=== PATIENT | female | born 1955 | race Two or more races ===

== ENCOUNTER 2018-12-03 16:08 | Inpatient (IN) | payer MEDICARE, OTHER ==
[~2018-12-03] VITALS: Ht 165.1 cm; Wt 95.6 kg
[2018-12-03] MEDS ORDERED: SODIUM CHLORIDE 0.9% 1,000 ML IV ONE (17:31)
[2018-12-03 17:57] LABS: Basophils # (auto) 0.1 uL; Basophils % (auto) 1.4 % (0.0-2.0); Eosinophils # (auto) 0.2 uL; Eosinophils % (auto) 4.1 % (0.0-7.0); Hematocrit 34.5 % (36.0-46.0); Hemoglobin 11.2 g/dL (12.2-16.2); Lymphocytes # (auto) 1.2 uL; Lymphocytes % (auto) 21.7 % (10.0-50.0); Mean Corpuscular Hemoglobin 31.4 pg (28.0-32.0); Mean Corpuscular Hgb Conc. 32.4 g/dL (32.0-36.0); Mean Corpuscular Volume 96.9 fL (80.0-100.0); Monocytes # (auto) 0.3 uL; Monocytes % (auto) 5.2 % (0.0-12.0); Neutrophils # (auto) 3.6 uL; Neutrophils % (auto) 67.6 % (37.0-80.0); Nucleated Red Blood Cells % 0.2 %; Platelet Count (auto) 297 10^3/uL (140-450); Red Blood Cells 3.56 10^6/uL (4.0-5.20); Red Cell Distribution Width 17.9 % (11.8-14.3); White Blood Cell 5.3 10^3/uL (4.4-10.8)
[2018-12-03 18:09] LABS: Albumin 3.6 g/dL (3.4-5.0); BUN/Creatinine Ratio 3.2; Calcium 8.1 mg/dL (8.5-10.1); Magnesium 2.6 mg/dL (1.6-2.6); Potassium 4.1 mmol/L (3.5-5.1)
[2018-12-03 18:13] LABS: Bilirubin, Total 0.8 mg/dL (0.2-1.0); Total Protein 7.7 g/dL (6.4-8.2)
[2018-12-03 18:42] LABS: Partial Thromboplastin Time 29.6 sec (23.78-33.04); Prothrombin Time 10.7 sec (9.27-12.13)
[2018-12-03] MEDS ORDERED: ACETAMINOPHEN 325 MG TAB PO PRN (22:15)
[2018-12-03] MEDS ORDERED: ZOLPIDEM TARTRATE 5 MG TAB PO PRN (22:15)
[2018-12-03] MEDS ORDERED: NITROGLYCERIN 0.4 MG SL TAB SL PRN (22:15)
[2018-12-03] MEDS ORDERED: ALBUTEROL SULF 2.5 MG/0.5ML(0.5%) NEB SOLN NEB ONE (23:00)
[2018-12-03] MEDS ORDERED: IPRATROPIUM BROM 0.5 MG/2.5ML INH SOL NEB ONE (23:00)
[2018-12-03] MEDS ORDERED: ALBUTEROL SULF 2.5 MG/0.5ML(0.5%) NEB SOLN ONE (23:11)
[2018-12-03] MEDS ORDERED: IPRATROPIUM BROM 0.5 MG/2.5ML INH SOL ONE (23:12)
[2018-12-03] MEDS: LORazepam 0.5 MG TAB PO PRN (23:28)
[2018-12-04] VITALS (7 sets, daily range): BP systolic 129–184; BP diastolic 76–110
[2018-12-04] MEDS: MORPHINE SULF INJ 2 MG/ML SYRINGE 1ML IV PRN ×2 (00:26→19:50)
[2018-12-04] MEDS: hydrALAZINE HCL 25 MG TAB PO SCH ×3 (06:09→21:53)
--- NOTE | 2018-12-04 07:00 | NUR ---
OPENING SHIFT NOTE. ASSUMED CARE OF THE PATIENT FROM THE SWITCHBOARD TROUBLESHOOTER RN. THE PATIENT IS SLEEPING AT THIS TIME. PATIENT IS BREATHING AND HAS NO SIGNS OF CYANOSIS. PATIENT'S CALL LIGHT IS WITHIN REACH AND BED IS IN THE LOWEST, LOCKED POSITION. WILL COME BACK FOR ASSESSMENT. PATIENT HAD A DIFFICULT NIGHT, PER SWITCHBOARD TROUBLESHOOTER RN, DUE TO ANXIETY. WILL CONTINUE TO MONITOR.
[2018-12-04] MEDS: SEVELAMER 800 MG TAB PO SCH ×3 (08:22→18:20)
[2018-12-04 08:45] LABS: Basophils # (auto) 0 uL; Basophils % (auto) 0.7 % (0.0-2.0); Eosinophils # (auto) 0.2 uL; Eosinophils % (auto) 4.8 % (0.0-7.0); Hematocrit 30.4 % (36.0-46.0); Hemoglobin 10.1 g/dL (12.2-16.2); Lymphocytes # (auto) 1.1 uL; Mean Corpuscular Hemoglobin 32.1 pg (28.0-32.0); Mean Corpuscular Hgb Conc. 33.2 g/dL (32.0-36.0); Mean Corpuscular Volume 96.5 fL (80.0-100.0); Monocytes # (auto) 0.7 uL; Monocytes % (auto) 14.8 % (0.0-12.0); Neutrophils # (auto) 2.7 uL; Neutrophils % (auto) 55.7 % (37.0-80.0); Platelet Count (auto) 266 10^3/uL (140-450); Red Blood Cells 3.15 10^6/uL (4.0-5.20); Red Cell Distribution Width 18.1 % (11.8-14.3); White Blood Cell 4.8 10^3/uL (4.4-10.8)
[2018-12-04 09:06] LABS: BUN/Creatinine Ratio 3.2; Calcium 7.4 mg/dL (8.5-10.1); Potassium 4.5 mmol/L (3.5-5.1)
--- NOTE | 2018-12-04 09:16 | NUR ---
CRITICAL CREATININE PAUL FROM THE LAB REPORTED A CRITICAL VALUE OF 11.4. PATIENT DOES HAVE END STAGE RENAL DISEASE. WILL NOTIFY THE PHYSICIAN AND CONTINUE TO MONITOR.
[2018-12-04] MEDS: PANTOPRAZOLE 40 MG TAB PO SCH (10:34)
[2018-12-04] MEDS: CLOPIDOGREL BISULFATE 75 MG TAB PO SCH (10:34)
[2018-12-04] MEDS: CARVEDILOL 3.125 MG TAB PO SCH ×2 (10:34→21:54)
[2018-12-04] MEDS: LORazepam 0.5 MG TAB PO PRN ×3 (10:35→22:52)
--- NOTE | 2018-12-04 11:00 | NUR ---
BP REASSESSMENT SHOW ELEVATED BLOOD PRESSURE (189/117). WILL NOTIFY THE HOSPITALIST.
[2018-12-04] MEDS ORDERED: AZITHROMYCIN 250 MG TAB PO ONE (12:00)
[2018-12-04] MEDS: cefTRIAXone 1GM/50ML D5W 50 ML IV SCH (12:28)
[2018-12-04] MEDS ORDERED: SODIUM CHL 0.9% 1000 ML BAG XX ONE (15:15)
[2018-12-04] MEDS: ALBUTEROL SULF 2.5 MG/0.5ML(0.5%) NEB SOLN NEB PRN (18:46)
[2018-12-04] MEDS: IPRATROPIUM BROM 0.5 MG/2.5ML INH SOL NEB PRN (18:46)
--- NOTE | 2018-12-04 19:00 | NUR ---
Opening Shift Note Assumed care of patient, awake and alert. No S/S of distress/SOB. The patient c/o pain and request pain medication. Will medicate with PRN pain medication. Instructed on POC and to call for assist PRN, will continue to monitor for changes Q1hr and PRN.
[2018-12-04] MEDS: diphenhdrAMINE HCL 25 MG CAP PO PRN (19:47)
[2018-12-04] MEDS ORDERED: EPOETIN ALFA 4,000 UNIT/ML VL SC ONE (21:00)
--- NOTE | 2018-12-04 21:45 | NUR ---
RESPONDED TO PATIENT CALL LIGHT. UPON ENTERING THE ROOM, THE PATIENT WAS DOUBLED OVER IN A CHAIR STATING THAT SHE DID NOT FEEL WELL. THE PATIENT STATED THAT SHE WANTED TO WALK AROUND THE UNIT BUT FELT SICK WHEN SHE BEGAN TO WALK. SHE C/O SOB AND NAUSEA. THE PATIENT WAS ASSISTED TO HER BED AND THE NASAL CANNULA WAS PLACED BACK INTO THE PATIENT'S NOSTRILS. THE PATIENT STATED THAT SHE FELT BETTER AFTER RECEIVING THE OXYGEN. SHE ALSO REQUESTED ATIVAN FOR HER ANXIETY.
[2018-12-04] MEDS: traZODone HCL 50 MG TAB PO SCH (21:54)
[2018-12-04] MEDS: ONDANSETRON HCL 4 MG/2 ML VIAL IV PRN (21:54)
--- NOTE | 2018-12-04 23:30 | NUR ---
HOSPITALIST NOTIFIED ABOUT ELEVATED BLOOD PRESSURE. ORDERS OBTAINED FOR CLONIDINE 0.1 Q4HR FOR SYSTOLIC PRESSURE ABOVE 150.
[2018-12-05] MEDS: cloNIDine HCL 0.1 MG TAB PO PRN ×2 (02:06→16:55)
[2018-12-05 05:00] VITALS: BP 114/66
[2018-12-05 06:03] LABS: Basophils # (auto) 0 uL; Basophils % (auto) 0.6 % (0.0-2.0); Eosinophils # (auto) 0.2 uL; Eosinophils % (auto) 4.5 % (0.0-7.0); Hematocrit 29.7 % (36.0-46.0); Hemoglobin 9.8 g/dL (12.2-16.2); Lymphocytes # (auto) 0.9 uL; Lymphocytes % (auto) 20.4 % (10.0-50.0); Mean Corpuscular Hgb Conc. 33.1 g/dL (32.0-36.0); Mean Corpuscular Volume 96.9 fL (80.0-100.0); Monocytes # (auto) 0.6 uL; Monocytes % (auto) 13.2 % (0.0-12.0); Neutrophils # (auto) 2.7 uL; Neutrophils % (auto) 61.3 % (37.0-80.0); Platelet Count (auto) 232 10^3/uL (140-450); Red Blood Cells 3.06 10^6/uL (4.0-5.20); Red Cell Distribution Width 17.7 % (11.8-14.3); White Blood Cell 4.4 10^3/uL (4.4-10.8)
[2018-12-05 06:26] LABS: BUN/Creatinine Ratio 3.3; Calcium 7.7 mg/dL (8.5-10.1); Potassium 5.1 mmol/L (3.5-5.1)
[2018-12-05] MEDS: hydrALAZINE HCL 25 MG TAB PO SCH ×3 (06:37→22:26)
--- NOTE | 2018-12-05 06:43 | NUR ---
CRITICAL VALUE THE PATIENT HAS A CRITICAL CREATININE AT 12.90. THE PATIENT HAS ESRD. WILL ENDORSE TO DAY TIME RN.
--- NOTE | 2018-12-05 07:45 | NUR ---
OPENING NOTE OBSERVED PT SITTING UP IN BED, CONVERSING WITH NEIGHBOR. NO SOB/DISTRESS NOTED. PT UPDATED ON POC AND VERBALIZED UNDERSTANDING. ENCOURAGED PT TO CONTACT STAFF FOR PRN ASSISTANCE. CALL LIGHT WITHIN REACH. FALL PRECAUTIONS IN PLACE. WILL CONTINUE TO MONITOR Q1H AND PRN. CONTINUE PT CARE.
[2018-12-05 08:11] VITALS: BP 139/72
[2018-12-05] MEDS: cefTRIAXone 1GM/50ML D5W 50 ML IV SCH (08:47)
[2018-12-05] MEDS: SEVELAMER 800 MG TAB PO SCH ×3 (08:47→17:37)
[2018-12-05] MEDS: MORPHINE SULF INJ 2 MG/ML SYRINGE 1ML IV PRN ×3 (08:52→22:28)
[2018-12-05] MEDS: PANTOPRAZOLE 40 MG TAB PO SCH (09:37)
[2018-12-05] MEDS: AZITHROMYCIN 250 MG TAB PO SCH (09:37)
[2018-12-05] MEDS: CLOPIDOGREL BISULFATE 75 MG TAB PO SCH (09:37)
[2018-12-05] MEDS: CARVEDILOL 3.125 MG TAB PO SCH ×2 (09:37→22:27)
[2018-12-05] MEDS: ONDANSETRON HCL 4 MG/2 ML VIAL IV PRN ×2 (10:24→16:19)
[2018-12-05] MEDS: LORazepam 0.5 MG TAB PO PRN ×2 (10:24→23:03)
[2018-12-05] MEDS ORDERED: TICA90TA PO (10:33)
[2018-12-05] MEDS ORDERED: ASP81EC PO (10:33)
--- NOTE | 2018-12-05 11:35 | NUR ---
DIALYSIS TELETYPEWRITER INSTALLER AT BEDSIDE PROVIDED WITH NS BAG X 2 AND SALINE FLUSHES.
[2018-12-05 12:38] VITALS: BP 130/76
--- NOTE | 2018-12-05 13:37 | NUR ---
Respiratory note: PT ASSESSED FOR PRN MED NEB TX. POX 96% ON RA, HR 88, RR 18. B/S ARE CLEAR THROUGHOUT. MED NEB TX IS NOT INDICATED. PT IS AWARE TO PRESS THE CALL LIGHT IF SHE FEELS ANY SOB TO RECEIVE A MED NEB TX.
--- NOTE | 2018-12-05 15:09 | NUR ---
ORDERS SPOKE TO DR. CAMEJO REGARDING PT REQUESTING TO BE PLACED ON BRILINTA AND ASPIRIN. MD STATING OK TO RESUME HOME DOSE AND FREQUENCY OF MEDICATIONS.
--- NOTE | 2018-12-05 15:25 | NUR ---
SPUTUM SAMPLE SPOKE TO PT REGARDING PENDING SPUTUM SAMPLE. PT VERBALIZED UNDERSTANDING. LABELED SPECIMEN CUP LEFT AT BEDSIDE.
--- NOTE | 2018-12-05 16:12 | NUR ---
DIALYSIS COMPLETED DIALYSIS COMPLETED. 3L REMOVED.
[2018-12-05] MEDS: FLUCONAZOLE 100 MG TAB PO SCH (16:19)
[2018-12-05 16:37] VITALS: BP 168/91
--- NOTE | 2018-12-05 16:59 | NUR ---
ROUNDS MEDICATED ACCORDING TO MD ORDER WITH PRN CLONIDINE FOR ELEVATED BP. WILL MONITOR EFFECTIVENESS. FAMILY AT BEDSIDE.
[2018-12-05 17:37] VITALS: BP 144/71
--- NOTE | 2018-12-05 17:42 | NUR ---
BLOOD PRESSURE REASSESSED BP REASSESSED FOLLOWING PRN CLONIDINE ADMINISTRATION, CURRENTLY 144/71. PT DENIES ANY DISTRESS. FAMILY REMAINS AT BEDSIDE. RE-ENCOURAGED TO CONTACT STAFF FOR PRN ASSISTANCE. CALL LIGHT WITHIN REACH. FALL PRECAUTIONS IN PLACE.
[2018-12-05 20:10] VITALS: BP 116/68
[2018-12-05] MEDS: IPRATROPIUM BROM 0.5 MG/2.5ML INH SOL NEB PRN (21:08)
[2018-12-05] MEDS: ALBUTEROL SULF 2.5 MG/0.5ML(0.5%) NEB SOLN NEB PRN (21:08)
[2018-12-05] MEDS: TICAGRELOR 90 MG TAB PO SCH (22:26)
[2018-12-05] MEDS: traZODone HCL 50 MG TAB PO SCH (22:27)
[2018-12-06 04:57] VITALS: BP 125/80
[2018-12-06 06:13] LABS: Basophils # (auto) 0 uL; Basophils % (auto) 0.8 % (0.0-2.0); Eosinophils # (auto) 0.2 uL; Hematocrit 30.8 % (36.0-46.0); Hemoglobin 10.2 g/dL (12.2-16.2); Lymphocytes % (auto) 22.1 % (10.0-50.0); Mean Corpuscular Hgb Conc. 33.1 g/dL (32.0-36.0); Mean Corpuscular Volume 96.6 fL (80.0-100.0); Monocytes # (auto) 0.6 uL; Monocytes % (auto) 14.4 % (0.0-12.0); Neutrophils # (auto) 2.6 uL; Neutrophils % (auto) 57.7 % (37.0-80.0); Platelet Count (auto) 245 10^3/uL (140-450); Red Blood Cells 3.19 10^6/uL (4.0-5.20); White Blood Cell 4.5 10^3/uL (4.4-10.8)
[2018-12-06] MEDS: ALBUTEROL SULF 2.5 MG/0.5ML(0.5%) NEB SOLN NEB PRN ×2 (06:34→20:51)
[2018-12-06] MEDS: IPRATROPIUM BROM 0.5 MG/2.5ML INH SOL NEB PRN ×2 (06:34→20:51)
[2018-12-06 06:40] LABS: BUN/Creatinine Ratio 2.7; Calcium 7.8 mg/dL (8.5-10.1); Potassium 4.7 mmol/L (3.5-5.1)
[2018-12-06] MEDS: hydrALAZINE HCL 25 MG TAB PO SCH ×3 (06:56→21:40)
--- NOTE | 2018-12-06 07:45 | NUR ---
OPENING NOTE OBSERVED PT SITTING UP IN BED, NO ACUTE DISTRESS NOTED AT THIS TIME. PT UPDATED ON POC AND VERBALIZED UNDERSTANDING. NPO STATUS ENFORCED WITH PATIENT FOR PENDING STRESS TEST. CALL LIGHT WITHIN REACH. FALL PRECAUTIONS IN PLACE. WILL CONTINUE TO MONITOR Q1H AND PRN. CONTINUE PT CARE.
[2018-12-06 08:00] VITALS: BP 125/75
[2018-12-06] MEDS: SEVELAMER 800 MG TAB PO SCH ×3 (08:00→17:42)
--- NOTE | 2018-12-06 08:15 | NUR ---
IV insertion IV access obtained, via clean sterile technique by inserting 22 gauge catheter at RFA after 3 attempts. IV secured properly. No trauma to site. Patient tolerated well.
[2018-12-06] MEDS: AZITHROMYCIN 250 MG TAB PO SCH (09:19)
[2018-12-06] MEDS: ASPirin-EC 81 mg tab PO SCH (09:20)
[2018-12-06] MEDS: PANTOPRAZOLE 40 MG TAB PO SCH (09:20)
[2018-12-06] MEDS: TICAGRELOR 90 MG TAB PO SCH ×2 (09:20→21:39)
[2018-12-06] MEDS: FLUCONAZOLE 100 MG TAB PO SCH (09:20)
[2018-12-06] MEDS: CLOPIDOGREL BISULFATE 75 MG TAB PO SCH (09:20)
[2018-12-06] MEDS: cefTRIAXone 1GM/50ML D5W 50 ML IV SCH (09:20)
--- NOTE | 2018-12-06 09:20 | NUR ---
PLAVIX ADMINISTRATION PT REFUSING PLAVIX AT THIS TIME R/T RESUMPTION OF BRILINTA. WILL SPEAK TO ATTENDING REGARDING FURTHER ORDERS.
[2018-12-06] MEDS: CARVEDILOL 3.125 MG TAB PO SCH ×2 (09:21→21:39)
[2018-12-06] MEDS: ONDANSETRON HCL 4 MG/2 ML VIAL IV PRN ×3 (09:21→21:40)
[2018-12-06] MEDS: MORPHINE SULF INJ 2 MG/ML SYRINGE 1ML IV PRN ×4 (09:21→22:10)
[2018-12-06] MEDS ORDERED: ADENOSINE 83 MG in GIVE UN-DILUTED 0 ML IV STA (09:51)
[2018-12-06] MEDS: LORazepam 0.5 MG TAB PO PRN ×2 (10:41→17:42)
--- NOTE | 2018-12-06 10:55 | NUR ---
OFF UNIT PT TAKEN OFF UNIT VIA WC TO NM.
--- NOTE | 2018-12-06 11:10 | NUR ---
SPOKE TO MD SPOKE TO DR. GALLEGOS REGARDING PT REQUEST FOR STOOL SOFTENER AND REFUSAL OF PLAVIX. ORDERS RECEIVED TO DC PLAVIX. ADDITIONAL ORDERS RECEIVED FOR LACTULOSE 30 ML Q6H PRN.
[2018-12-06 11:43] VITALS: BP 145/88
[2018-12-06] MEDS: LACTULOSE 20Gm/30ML SOLN PO PRN (13:36)
--- NOTE | 2018-12-06 14:27 | NUR ---
CALL TO MD CALL OUT TO DR. GALLEGOS. PT REQUESTING MORE MEDICATION FOR ANXIETY. STATING 'THE OTHER STUFF ISN'T WORKING'. WAITING ON RESPONSE.
[2018-12-06] MEDS: cloNIDine HCL 0.1 MG TAB PO PRN (16:02)
--- NOTE | 2018-12-06 16:05 | NUR ---
SPOKE TO MD SPOKE TO DR. GALLEGOS REGARDING PT C/O ANXIETY. ORDERS RECEIVED.
[2018-12-06 17:12] VITALS: BP 161/89
--- NOTE | 2018-12-06 19:05 | NUR ---
Opening Shift Note Assumed care of patient, pt sleeping No S/S of distress/SOB or pain. Insructed on POC and to call for assist PRN, will continue to monitor for changes Q1hr and PRN. Pt on 3 L NC bed locked and in lowest position, call light within reach
[2018-12-06] MEDS: traZODone HCL 50 MG TAB PO SCH (21:39)
[2018-12-06 22:00] VITALS: BP 121/70
[2018-12-07] MEDS: MORPHINE SULF INJ 2 MG/ML SYRINGE 1ML IV PRN ×5 (04:17→21:01)
--- NOTE | 2018-12-07 04:17 | NUR ---
IV removal IV DC'd 22 RFA with clean sterile technique, catheter fully intact. Pressure dressing applied to site. Patient tolerated well. NOTE:
[2018-12-07] MEDS: ONDANSETRON HCL 4 MG/2 ML VIAL IV PRN ×4 (04:18→21:01)
[2018-12-07 04:35] VITALS: BP 121/71
[2018-12-07 05:00] VITALS: BP 109/71
--- NOTE | 2018-12-07 05:27 | NUR ---
PT ROUNDS PT wanted BP check 118/72 HR 75, complained of dizziness, Put bed alarm and inform to not get out of bed without assistance. pt states she feels ok now, will continue to monitor pt.
[2018-12-07] MEDS: hydrALAZINE HCL 25 MG TAB PO SCH ×3 (05:32→21:01)
--- NOTE | 2018-12-07 06:05 | NUR ---
DIALYSIS SANDWICH BOARD CARRIER Calling in regards pt, if patient had any dialysis order, Was informed that MD Candelario will be entering orders
--- NOTE | 2018-12-07 06:56 | NUR ---
CLOSING NOTE Report endorsed to day RN , pt awake no s/sx;s of distress noted
--- NOTE | 2018-12-07 07:30 | NUR ---
OPENING NOTE OBSERVED PT SITTING UP IN BED. PT C/O 03/15 GENERALIZED BACK PAIN. REQUESTING PRN MORPHINE. INFORMED MEDICATION IS NOT DUE AT THIS TIME, VERBALIZED UNDERSTANDING. WILL MEDICATE ACCORDING TO MD ORDER WHEN ORDER IS DUE. PT ALSO C/O FEELING SOB, NOT WEARING OXYGEN AT THIS TIME DUE TO PT C/O 'NOSE DRYNESS'. PT PLACED BACK ON 3L NC, HUMIDIFIER ATTACHED. SATURATIONS 92-93%. PT EXPRESSING IMPROVEMENT IN SYMPTOMS. SPOKE TO PT REGARDING PENDING C. PT EXPRESSED HAVING NO FURTHER QUESTIONS IN REGARDS TO PLANNED PROCEDURE. CONSENTS SIGNED AND PLACED IN CHART. NPO STATUS REINFORCED WITH PT. PT VERBALIZED UNDERSTANDING. CALL LIGHT WITHIN REACH. FALL PRECAUTIONS IN PLACE. WILL CONTINUE TO MONITOR Q1H AND PRN. CONTINUE PT CARE.
[2018-12-07] MEDS: SEVELAMER 800 MG TAB PO SCH ×3 (08:00→17:12)
--- NOTE | 2018-12-07 08:24 | NUR ---
CALLED HOSTING ENGINEER CALLED HOSTING ENGINEER TO INQUIRE TO WHAT TIME LHC TO BE COMPLETED AND TO DETERMINE WHETHER OR NOT OK TO ADMINISTER BRILINTA AND ECOTRIN. OK TO ADMINISTER BOTH. UNSURE OF PROCEDURE TIME OF NOW, BUT ARCADIO STATING HE WILL DISCUSS WITH DR. MCCLURE AND CONTACT PRIMARY NURSE AT A LATER TIME.
--- NOTE | 2018-12-07 08:28 | NUR ---
HEARING AID ASSEMBLY SUPERVISOR RECEIVED PHONE CALL FROM KELLY HEARING AID ASSEMBLY SUPERVISOR. REQUESTING PT BE TRANSPORTED TO HEARING AID ASSEMBLY SUPERVISOR AT 0900.
[2018-12-07] MEDS: AZITHROMYCIN 250 MG TAB PO SCH (08:41)
[2018-12-07] MEDS: ASPirin-EC 81 mg tab PO SCH (08:41)
[2018-12-07] MEDS: FLUCONAZOLE 100 MG TAB PO SCH (08:41)
[2018-12-07] MEDS: cefTRIAXone 1GM/50ML D5W 50 ML IV SCH (08:42)
[2018-12-07] MEDS: TICAGRELOR 90 MG TAB PO SCH (08:42)
[2018-12-07] MEDS: CARVEDILOL 3.125 MG TAB PO SCH ×2 (08:42→21:02)
[2018-12-07] MEDS: PANTOPRAZOLE 40 MG TAB PO SCH (08:42)
--- NOTE | 2018-12-07 08:45 | NUR ---
DIALYSIS OIL DISPENSER AT BEDSIDE. INFORMED OF PENDING TRANSFER TO OPERATIONS INSPECTOR. RN STATING HE WILL RETURN LATER TO START DIALYSIS TREATMENT.
--- NOTE | 2018-12-07 08:58 | NUR ---
OFF UNIT PT TAKEN OFF UNIT VIA STRETCHER TO IT ARCHITECT. SURGICAL CHECKLIST COMPLETED/UPDATED. PATIENT ATTACHED TO NS VIA RFA 20G IV. NO ACUTE DISTRESS NOTED AT TIME OF DEPARTURE.
[2018-12-07 09:00] VITALS: BP_SYST 139; BP_SYST 149; BP_DIAS 68; BP_DIAS 87
--- NOTE | 2018-12-07 09:37 | NUR ---
PULMONARY CONSULT DR. DAHL ON UNIT TO SEE PATIENT. INFORMED MD THAT PT IS OFF UNIT FOR [facility]. MD UPDATED ON PT STATUS AND PT C/O INCREASED SOB, INABILITY TO LIE FLAT IN BED, AND SUDDEN AWAKENINGS IN THE MIDDLE OF THE NIGHT WITH INCREASED SOB PER PT REPORT. MD STATING HE WILL SEE PATIENT AT LATER TIME.
[2018-12-07] MEDS ORDERED: SODIUM CHL 0.9% 0 ML ONE (09:55)
[2018-12-07] MEDS ORDERED: MIDAZOLAM HCL 1MG/1ML-2 ML VIAL ONE (09:55)
[2018-12-07] MEDS ORDERED: fentaNYL CITRATE 100 MCG/2 ML VL ONE (09:55)
[2018-12-07] MEDS ORDERED: ANGIOMAX 250 MG VIAL IV ONE (09:55)
[2018-12-07] MEDS ORDERED: IODIXANOL 320MG/ML 100ML BTL IV ONE (10:07)
[2018-12-07] MEDS ORDERED: LIDOCAINE 2%HCL (LOCAL ANESTH.) INJ 20ML MDV ONE (10:07)
[2018-12-07] MEDS ORDERED: SODIUM CHL 0.9% 1000 ML BAG XX ONE (11:30)
--- NOTE | 2018-12-07 11:37 | NUR ---
RETURNED TO UNIT PT RETURNED TO UNIT FROM JUSTICE PROFESSOR. RIGHT GROIN DRESSING CDI. SITE IS SOFT TO THE TOUCH. NO BRUISING/HEMATOMA NOTED. BLE SENSORY MOTOR INTACT. CAP REFILL LESS THAN 3 SECONDS. BLE WARM TO THE TOUCH. PT INSTRUCTED TO REMAIN FLAT UNTIL 1245. PT VERBALIZED UNDERSTANDING. WILL CONTINUE TO MONITOR.
--- NOTE | 2018-12-07 12:05 | NUR ---
Nutrition Assessment Notes please see attached link for complete assessment Est. Needs ABW [id number] kcal (25-27 kcal/kgBW), 91-106 gms pro (1.2-1.4 gms/kgBW r/t pt on HD). Will continue to monitor pertinent labs and reassess nutrient need prn Addendum: 12/07/18 at [address] Amended: Links added.
[2018-12-07] MEDS: LORazepam 0.5 MG TAB PO PRN (12:08)
[2018-12-07] MEDS: IPRATROPIUM BROM 0.5 MG/2.5ML INH SOL NEB PRN (12:25)
[2018-12-07] MEDS: ALBUTEROL SULF 2.5 MG/0.5ML(0.5%) NEB SOLN NEB PRN (12:25)
--- NOTE | 2018-12-07 14:00 | NUR ---
DIALYSIS TOMATO GRADER AT BEDSIDE FOR TREATMENT.
--- NOTE | 2018-12-07 14:08 | NUR ---
AT BEDSIDE DR. GALLEGOS AT BEDSIDE DISCUSSING POC WITH PT. ORDERS RECEIVED TO MEHRDAD MATA. ORDER READ BACK. NO FURTHER ORDERS AT THIS TIME.
--- NOTE | 2018-12-07 15:00 | NUR ---
RIGHT GROIN RIGHT GROIN ASSESSED. SITE REMAINS SOFT. NO BRUISING/HEMATOMA NOTED. DRESSING CDI. WILL CONTINUE TO MONITOR.
--- NOTE | 2018-12-07 16:00 | NUR ---
DIALYSIS DIALYSIS COMPLETED. 2.5 L REMOVED. FINAL BP 134/72. WILL CONTINUE TO MONITOR.
[2018-12-07] MEDS: LACTULOSE 20Gm/30ML SOLN PO PRN (16:12)
[2018-12-07 16:39] VITALS: BP 129/69
--- NOTE | 2018-12-07 17:05 | NUR ---
FAMILY PATIENTS , MADDISON, AT BEDSIDE UPDATED ON POC. VERBALIZED UNDERSTANDING.
--- NOTE | 2018-12-07 18:14 | NUR ---
ROUNDS PT SITTING UP IN BED, EATING DINNER AND TOLERATING. NO ACUTE DISTRESS NOTED. REMAINS AT BEDSIDE. PT REQUESTING PRN MORPHINE FOR BACK PAIN. INFORMED PT THAT MORPHINE IS NOT DUE AT THIS TIME, PRN NORCO OFFERED ALTERNATIVE, PT REFUSED. PT STATING, 'I WANT THAT ANXIETY MEDICATION AGAIN THEN'. RE-INFORMED PT THAT MEDICATION IS NOT DUE AT THIS TIME EITHER. PT VERBALIZED UNDERSTANDING. CALL LIGHT IS WITHIN REACH. FALL PRECAUTIONS IN PLACE.
--- NOTE | 2018-12-07 19:30 | NUR ---
Opening Shift Note Assumed care of patient, awake and alert. at bedside, No S/S of distress/SOB or pain noted. Instructed on POC and to call for assist PRN, will continue to monitor for changes Q1hr and PRN. bed locked and in lowest position, call light within reach.
[2018-12-07] MEDS: traZODone HCL 50 MG TAB PO SCH (21:02)
[2018-12-07 21:55] VITALS: BP 139/82
[2018-12-08] MEDS: MORPHINE SULF INJ 2 MG/ML SYRINGE 1ML IV PRN ×3 (02:05→17:50)
[2018-12-08] MEDS: ONDANSETRON HCL 4 MG/2 ML VIAL IV PRN ×2 (02:05→08:30)
--- NOTE | 2018-12-08 02:05 | NUR ---
PT ROUNDS Aide at bedside. Pt complaining of a lot of pain on right leg 06/15, states core pain is at right groin incision site, assess site and swollen and hard, immediately laid patient flat, notified gas charger Amber, applying manual pressure. Drawn a black like as to where swollen area is. V/s obtained BP 148/89 on right arm , HR 89 Paged FIREBRICK LAYER DIAMOND WHEEL EDGER Informed in regards pt's current situation, informed Corporate Job Titles that it is an urgent matter PAGED Dr. Padron and informed in regards to pt current situation 0216 V/s BP 136/81 HR 77 Incision site becoming tender, but below incision site still hard. continuously applying manual pressure
--- NOTE | 2018-12-08 02:40 | NUR ---
PT ROUNDS Applied 10 lb sandbag, Continuos applying pressure,
--- NOTE | 2018-12-08 03:00 | NUR ---
PT ROUNDS AUDITOR IN CHARGE AT BEDSIDE, ASsess site and pt Right groin has reduced, still continuously applying 10 lb sand bag will continue to monitor pt
--- NOTE | 2018-12-08 03:05 | NUR ---
STREET SPRINKLER AT BEDSIDE
[2018-12-08] MEDS: HYDROcodone-ACET 5/325MG TAB PO PRN ×2 (03:15→11:35)
[2018-12-08 03:19] LABS: Hematocrit 31.1 % (36.0-46.0); Hemoglobin 10.2 g/dL (12.2-16.2)
--- NOTE | 2018-12-08 04:01 | NUR ---
Reassess PT Upon entering room pt resting, java groovy developer also at bedside. Removed sandbag off pt, assess site, swelling has reduced and non tender, check pulses and capillary refills checked, applied safe guard with 40 cc off air. will continuously monitor pt.
[2018-12-08 05:00] VITALS: BP 108/59
[2018-12-08] MEDS: hydrALAZINE HCL 25 MG TAB PO SCH ×3 (05:35→22:28)
--- NOTE | 2018-12-08 07:15 | NUR ---
CLOSING NOTE Bed side report with day GT Bagley, assess site minimal swelling, soft, pt awake Addendum: 12/08/18 at 0745 by VINEET BERNARDO RN RN Informed Day RN that seasonal clerk hardware installation coordinator was paged And Dr. Padron were informed of pt's change in status.
--- NOTE | 2018-12-08 07:16 | NUR ---
Respiratory note: PT ASSESSED FOR PRN HHN TX. PT IS ON 2NC, SPO2 91%, HR 72, RR 16. NO S/S OF RESPIRATORY DISTRESS. PT AWARE TO HAVE RT PAGED IF BREATHING TX INDICATED.
--- NOTE | 2018-12-08 07:40 | NUR ---
Opening Shift Note Assumed care of patient, awake and alert. No S/S of distress/SOB. Instructed on POC and to call for assist PRN, will continue to monitor for changes Q1hr and PRN. Patient complained of pain to right groin. Will follow up with pain medication.
[2018-12-08] MEDS: SEVELAMER 800 MG TAB PO SCH ×3 (08:20→17:39)
[2018-12-08] MEDS: cefTRIAXone 1GM/50ML D5W 50 ML IV SCH (08:30)
[2018-12-08 08:51] VITALS: BP 121/65
[2018-12-08] MEDS: diphenhdrAMINE HCL 25 MG CAP PO PRN (09:56)
[2018-12-08] MEDS: FLUCONAZOLE 100 MG TAB PO SCH (09:56)
[2018-12-08] MEDS: PANTOPRAZOLE 40 MG TAB PO SCH (09:56)
[2018-12-08] MEDS: ASPirin-EC 81 mg tab PO SCH (09:56)
[2018-12-08] MEDS: CARVEDILOL 3.125 MG TAB PO SCH ×2 (09:57→22:28)
[2018-12-08] MEDS ORDERED: THROMBIN (BOVINE) 5000 UNIT SOL VIAL TP ONE ×2 (10:00→10:15)
[2018-12-08] MEDS ORDERED: THROMBIN (BOVINE) 5000 UNIT SOL VIAL ONE (11:00)
[2018-12-08 13:00] VITALS: BP 132/76
--- NOTE | 2018-12-08 13:45 | NUR ---
Patient left unit in bed for radiology department.
--- NOTE | 2018-12-08 14:40 | NUR ---
Patient returned to unit from radiology department after having U/S guided Thrombi injection to right groin. Patient to maintain bedrest until 2029. Patient is aware.
[2018-12-08] MEDS: MICONAZOLE NITRATE 2 % VAGINAL CREAM 45 GM TOP SCH ×2 (14:48→22:26)
[2018-12-08 16:55] VITALS: BP 125/75
[2018-12-08] MEDS: IPRATROPIUM BROM 0.5 MG/2.5ML INH SOL NEB PRN (18:42)
[2018-12-08] MEDS: ALBUTEROL SULF 2.5 MG/0.5ML(0.5%) NEB SOLN NEB PRN (18:42)
[2018-12-08 22:10] VITALS: BP 152/84
[2018-12-08] MEDS: traZODone HCL 50 MG TAB PO SCH (22:27)
[2018-12-08] MEDS: LORazepam 0.5 MG TAB PO PRN (22:27)
[2018-12-09] MEDS: MORPHINE SULF INJ 2 MG/ML SYRINGE 1ML IV PRN ×2 (02:32→22:16)
[2018-12-09 05:00] VITALS: BP 139/72
[2018-12-09] MEDS: MICONAZOLE NITRATE 2 % VAGINAL CREAM 45 GM TOP SCH ×3 (05:46→22:16)
[2018-12-09] MEDS: hydrALAZINE HCL 25 MG TAB PO SCH ×3 (05:46→22:15)
--- NOTE | 2018-12-09 06:51 | NUR ---
Dialysis nurse called to say they are on their way to see the patient. No phone number was left to contact them.
--- NOTE | 2018-12-09 07:40 | NUR ---
Opening Shift Note Assumed care of patient, awake and alert sitting up in bed. No S/S of distress/SOB or pain. Instructed on POC and to call for assist PRN, will continue to monitor for changes Q1hr and PRN. Dialysis nurse at bedside.
[2018-12-09] MEDS: SEVELAMER 800 MG TAB PO SCH ×3 (07:59→18:20)
[2018-12-09] MEDS ORDERED: SODIUM CHL 0.9% 1000 ML BAG XX ONE (08:30)
[2018-12-09 09:00] VITALS: BP 126/76
--- NOTE | 2018-12-09 09:30 | NUR ---
Respiratory note: ASSESSED PT FOR PRN MEDNEN TX. HR 78, RR 16, POX 98% ON 3L NC. BREATH SOUNDS CLEAR DIMINISHED THROUGHOUT. PT STATES HER BREATHING IS FEELING OK AT THIS TIME. PT CURRENTLY UNDERGOING DIALYSIS. RN AT BEDSIDE. NO S/S OF RESPIRATORY DISTRESS. ADVISED PT TO CALL FOR RT IF FEELING SOB/DISTRESS.
[2018-12-09] MEDS: PANTOPRAZOLE 40 MG TAB PO SCH (10:10)
[2018-12-09] MEDS: CARVEDILOL 3.125 MG TAB PO SCH ×2 (10:11→22:15)
[2018-12-09] MEDS: ASPirin-EC 81 mg tab PO SCH (10:11)
[2018-12-09] MEDS: HYDROcodone-ACET 5/325MG TAB PO PRN (10:12)
--- NOTE | 2018-12-09 11:17 | NUR ---
Dialysis completed. 2.5 L removed. B/P 131/87 P. 80
[2018-12-09] MEDS: diphenhdrAMINE HCL 25 MG CAP PO PRN (12:07)
[2018-12-09 12:47] VITALS: BP 107/62
[2018-12-09 16:58] VITALS: BP 107/62
--- NOTE | 2018-12-09 19:00 | NUR ---
Opening Shift Note Assumed care of patient, awake and alert. No S/S of distress/SOB or pain. Instructed on POC and to call for assist PRN, will continue to monitor for changes Q1hr and PRN.
[2018-12-09 21:02] VITALS: BP 107/62
[2018-12-09 21:52] VITALS: BP 125/71
[2018-12-09] MEDS: traZODone HCL 50 MG TAB PO SCH (22:15)
[2018-12-09] MEDS: LORazepam 0.5 MG TAB PO PRN (22:16)
--- NOTE | 2018-12-09 22:17 | NUR ---
Respiratory note: ASSESSED PT FOR PRN MED NEB AT THIS TIME, PT DENIES SOB AT THIS TIME, NO RESP DISTRESS NOTED, NO TX INDICATED, PULSE OX 94% ON 3L NC, HR 83, RR 20, BILATERAL BS DIMINISHED
[2018-12-10 05:20] VITALS: BP 124/78
[2018-12-10] MEDS: hydrALAZINE HCL 25 MG TAB PO SCH ×3 (05:43→22:00)
[2018-12-10] MEDS: MICONAZOLE NITRATE 2 % VAGINAL CREAM 45 GM TOP SCH ×3 (05:43→22:02)
--- NOTE | 2018-12-10 08:12 | NUR ---
RT NOTE: WENT TO PTS ROOM TO ASSESS FOR PRN BREATHING TX, PT LAYING DOWN IN BED. PT STATED THAT SHE DID NOT NEED A TX AT THIS TIME. THAT SHE WAS BREATHING FINE. HR 74, SPO2 99% ON 2L NC , BREATH SOUNDS CLEAR. PT AWARE TO CALL IF HAVING ANY SOB. WILL CONTINUE TO MONITOR PT.
[2018-12-10] MEDS: SEVELAMER 800 MG TAB PO SCH ×3 (08:40→18:04)
[2018-12-10 09:00] VITALS: BP 116/70
[2018-12-10] MEDS: CARVEDILOL 3.125 MG TAB PO SCH ×2 (10:17→22:02)
[2018-12-10] MEDS: ASPirin-EC 81 mg tab PO SCH (10:17)
[2018-12-10] MEDS: PANTOPRAZOLE 40 MG TAB PO SCH (10:17)
[2018-12-10] MEDS: MORPHINE SULF INJ 2 MG/ML SYRINGE 1ML IV PRN ×2 (11:39→23:44)
[2018-12-10 13:00] VITALS: BP 120/68
[2018-12-10] MEDS: ONDANSETRON HCL 4 MG/2 ML VIAL IV PRN ×2 (14:13→18:05)
[2018-12-10 17:00] VITALS: BP 150/89
--- NOTE | 2018-12-10 17:54 | NUR ---
UNABLE TO COLLECT URINE AND RESPIRATORY SPECIMEN PATIENT NOT COUGHING UP PHLEGM AND IS ANURIC.
--- NOTE | 2018-12-10 21:30 | NUR ---
Respiratory note: PT ASSESSED FOR PRN MED NEB TX. HR 65, RR 18, SPO2 98% ON 2L NC, BS COARSE/DIMINISHED. NO SIGNS OF ANY RESPIRATORY DISTRESS NOTED. ADVISED PT TO PLEASE CLL IF NEEDED
[2018-12-10] MEDS: traZODone HCL 50 MG TAB PO SCH (22:02)
[2018-12-10 22:14] VITALS: BP 134/81
[2018-12-11 05:55] VITALS: BP 109/67
[2018-12-11] MEDS: MICONAZOLE NITRATE 2 % VAGINAL CREAM 45 GM TOP SCH ×3 (06:44→22:29)
[2018-12-11] MEDS: hydrALAZINE HCL 25 MG TAB PO SCH ×3 (06:44→22:27)
[2018-12-11] MEDS: LACTULOSE 20Gm/30ML SOLN PO PRN (07:00)
[2018-12-11] MEDS: LORazepam 0.5 MG TAB PO PRN (07:00)
--- NOTE | 2018-12-11 07:20 | NUR ---
Opening Shift Note Assumed care of patient, awake and alert. No S/S of distress/SOB or pain. Instructed on POC and to call for assist PRN, will continue to monitor for changes Q1hr and PRN. Bed locked in lowest position with two side rails up can call light in reach.
[2018-12-11] MEDS: SEVELAMER 800 MG TAB PO SCH ×3 (07:58→18:01)
[2018-12-11 08:00] VITALS: BP 115/70
[2018-12-11 09:00] VITALS: BP 115/70
--- NOTE | 2018-12-11 09:08 | NUR ---
RT NOTE: PRN BREATHING TX. NOT INDICATED AT THIS TIME. NO S/S OF RESPIRATORY DISTRESS NOTED. PT. HR. 80, RR 16, POX 100% 2L N/C.
[2018-12-11] MEDS: ASPirin-EC 81 mg tab PO SCH (09:15)
[2018-12-11] MEDS: PANTOPRAZOLE 40 MG TAB PO SCH (09:15)
[2018-12-11] MEDS: CARVEDILOL 3.125 MG TAB PO SCH ×2 (09:16→22:28)
--- NOTE | 2018-12-11 11:43 | NUR ---
ORDERS STATE TO TAKE BLOOD PRESSURE ON BOTH ARMS, HOWEVER PATIENT HAS A FISTULA ON THE LEFT ARM AND I AM UNABLE TO OBTAIN BP ON THIS EXTREMITY.
--- NOTE | 2018-12-11 12:10 | NUR ---
Nutrition Follow-up Notes Wt.: 96.5 kg Pt was sleeping with no family by beside. per records pt to have CABG on 12/13. pt is currently on renal std diet with adequate PO of > 75% x 4 per RN doc. pt with no distress noted per nursing. pt had HD yesterday per records Est. Needs ABW [id number] kcal (25-27 kcal/kgBW), 91-106 gms pro (1.2-1.4 gms/kgBW r/t pt on HD). Will continue to monitor pertinent labs and reassess nutrient need prn Labs: No new labs today 12/06: BUN 25 H, CREAT 9.35 H, CA 7.8 L. Skin: Wallace scale 20 low risk skin intact per chopper feeder. GI: Pt had 2 BM 12/09 per chopper feeder. PES: Decreased nutrient needs r/t adiposity aeb pt`s high BMI of 35.8 kgm2 Altered nutrition related lab values r/t current/chronic medical condition aeb elev RFT hypocalcemia Will continue to monitor PO intake, skin status, pertinent labs and weight trend. F/u in 3-5 days. Rec.: 1.) refer to [facility] dietitian on DC. 2) continue current plan of care
[2018-12-11 13:00] VITALS: BP 107/65
--- NOTE | 2018-12-11 18:23 | NUR ---
PATIENT CONSENTS NOT SIGNED PATIENT WOULD LIKE TO SPEAK TO THE SURGEON BEFORE SIGNING. SHE IS NOT SURE WHAT THE SURGERY IS EXACTLY IS.
--- NOTE | 2018-12-11 18:28 | NUR ---
UNABLE TO COLLECT ANY URINE SAMPLES PATIENT IS ANURIC.
--- NOTE | 2018-12-11 19:05 | NUR ---
ASSUMED PATIENT CARE PATIENT IS ALERT AND ORIENTED X4. NO S/SX OF DISTRESS OR SOB. PATIENT IS IN BED TALKING ON THE PHONE. BED IS LOCKED IN LOWEST POSITION, BED RAILS UP X2 AND HEAD OF BED IS UP >30 FOR SAFETY PRECAUTIONS. PATIENT STATES THAT SHE DOES NOT UNDERSTAND WHAT IS GOING TO BE DONE DURING THE OPEN HEART SURGERY THAT IS SCHEDULED FOR HER. PATIENT STATES THAT THE DOCTOR HAS NOT EXPLAINED THE SURGERY TO HER AND THAT SHE IS NERVOUS ABOUT IT. I EXPLAINED TO HER THAT THE DOCTOR WOULD GO OVER THE PROCEDURE WITH HER BEFORE SIGNING CONSENTS; PATIENT SAID SHE FELT GOOD KNOWING THAT. PATIENT VERBALIZED UNDERSTANDING. BEDSIDE TABLE WITHIN REACH, CALL LIGHT WITHIN REACH. INSTRUCTED PATIENT TO CALL PRN; PATIENT VERBALIZED UNDERSTANDING. WILL CONTINUE TO MONITOR Q1H AND PRN.
[2018-12-11 20:05] VITALS: BP 161/83
--- NOTE | 2018-12-11 20:11 | NUR ---
ASSESSED PT @ THIS TIME FOR PRN MED NEB TX. PT IS RESTING COMFORTABLY IN BED, SHE STATES HER BREATHING IS DOING FINE. NO DISTRESS NOTED. CURRENTLY ON 2L NC W/ SPO2 100%, SHE STATES SHE WEARS 2.5L @ HOME. HR 80, RR 16 AND BS WERE CLEAR TO DIMINISHED. SHE IS AWARE TO HAVE RT PAGED IF SHE FEELS SOB.
[2018-12-11 21:37] VITALS: BP 129/79
[2018-12-11] MEDS: traZODone HCL 50 MG TAB PO SCH (22:29)
[2018-12-11] MEDS: MORPHINE SULF INJ 2 MG/ML SYRINGE 1ML IV PRN (22:29)
[2018-12-12] MEDS: LORazepam 0.5 MG TAB PO PRN ×3 (00:07→23:50)
[2018-12-12 05:18] VITALS: BP 114/69
--- NOTE | 2018-12-12 06:13 | NUR ---
PRN MN TX NOT INDICATED ART THIS TIME. PT IS AWAKE, ALERT AND ORIENTED. PT ON HIGH FOWLERS, PT WATCHING TV. PT ON 2L/MIN VIA NC. 95% O2 SATS, HT 78 BPM, RR18, BS ARE CLEAR TO AUSCULTATION, SKIN IS DRY AND WARM TO THE TOUCH. RESPIRATION IS EVEN AND NONLABORED. PT DENIES SOB OR ANY OTHER RESPIRATORY DISTRESS. PT INSTRUCTED TO CALL IF MN TX IS INDICATED. PT VERBALIZED UNDERSTANDING. WILL CONTINUE TO MONITOR PT.
[2018-12-12] MEDS: MICONAZOLE NITRATE 2 % VAGINAL CREAM 45 GM TOP SCH ×3 (06:27→21:39)
[2018-12-12] MEDS: hydrALAZINE HCL 25 MG TAB PO SCH ×3 (06:27→21:38)
[2018-12-12] MEDS ORDERED: SODIUM CHL 0.9% 1000 ML BAG XX ONE (07:00)
--- NOTE | 2018-12-12 07:50 | NUR ---
Opening Shift Note Assumed care of patient, awake, alert, and oriented x4. Patient has no complaints of pain at this time. Patient has IV in right forearm 20g saline locked and flushing well, patient tolerating well. Patient is on 2L NC with no S/S of distress/SOB. Patient's skin is intact. Patient has dressing to right groin, CDI, no s/s of bleeding, pulses palpable to right foot. Instructed on POC and to call for assist PRN, will continue to monitor for changes Q1hr and PRN. Bed in lowest locked position, call light within reach.
[2018-12-12 08:00] VITALS: BP 120/70
[2018-12-12] MEDS: SEVELAMER 800 MG TAB PO SCH ×3 (08:20→18:06)
[2018-12-12 08:37] LABS: Basophils # (auto) 0 uL; Basophils % (auto) 0.8 % (0.0-2.0); Eosinophils # (auto) 0.3 uL; Eosinophils % (auto) 4.8 % (0.0-7.0); Hematocrit 26.2 % (36.0-46.0); Hemoglobin 8.7 g/dL (12.2-16.2); Lymphocytes % (auto) 17.7 % (10.0-50.0); Mean Corpuscular Hgb Conc. 33.2 g/dL (32.0-36.0); Mean Corpuscular Volume 96.5 fL (80.0-100.0); Monocytes % (auto) 17.9 % (0.0-12.0); Neutrophils # (auto) 3.2 uL; Neutrophils % (auto) 58.8 % (37.0-80.0); Platelet Count (auto) 310 10^3/uL (140-450); Red Blood Cells 2.71 10^6/uL (4.0-5.20); White Blood Cell 5.4 10^3/uL (4.4-10.8)
[2018-12-12 08:51] LABS: Albumin 3.1 g/dL (3.4-5.0); Calcium 8.6 mg/dL (8.5-10.1); Potassium 4.9 mmol/L (3.5-5.1)
[2018-12-12 08:57] LABS: BUN/Creatinine Ratio 2.4; Bilirubin, Total 0.5 mg/dL (0.2-1.0); Total Protein 7.2 g/dL (6.4-8.2)
[2018-12-12 09:05] LABS: INR 0.99 (0.9-1.15); Partial Thromboplastin Time 29.9 sec (23.78-33.04); Prothrombin Time 10.6 sec (9.27-12.13)
[2018-12-12] MEDS: CARVEDILOL 3.125 MG TAB PO SCH ×2 (09:31→21:38)
[2018-12-12] MEDS: PANTOPRAZOLE 40 MG TAB PO SCH (09:31)
[2018-12-12] MEDS: ASPirin-EC 81 mg tab PO SCH (09:32)
--- NOTE | 2018-12-12 10:50 | NUR ---
AT BEDSIDE DR. GALLEGOS AT BEDSIDE DISCUSSING POC WITH PATIENT. PATIENT COMPLAINING OF DIZZINESS WHEN TURNING HEAD. PER MD, PATIENT TO GET MECLIZINE 25MG Q6H PRN AND CONSULT NEUROLOGY. ORDERS READ BACK AND VERIFIED.
[2018-12-12] MEDS ORDERED: MECLIZINE HCL 25 MG TAB PO PRN (11:00)
--- NOTE | 2018-12-12 12:30 | NUR ---
AT BEDSIDE DR. ENGLAND AT BEDSIDE DISCUSSING POC WITH PATIENT.
--- NOTE | 2018-12-12 13:45 | NUR ---
[facility] DIAL[facility] AT BEDSIDE PREPARING TO DIALYZE THE PATIENT.
[2018-12-12] MEDS: MORPHINE SULF INJ 2 MG/ML SYRINGE 1ML IV PRN ×2 (18:12→18:50)
--- NOTE | 2018-12-12 18:13 | NUR ---
DIALYSIS COMPLETE DIALYSIS COMPLETE. PER VECTOR CONTROL ASSISTANT, 3L REMOVED AND BLOOD PRESSURE 124/83 HR 87. NO S/S OF DISTRESS NOTED AT THIS TIME. WILL CONTINUE TO MONITOR.
--- NOTE | 2018-12-12 18:39 | NUR ---
END OF SHIFT PATIENT RESTING IN BED. NO S/S OF DISTRESS. INSTRUCTED PATIENT TO CALL PRN. BED IN LOWEST LOCKED POSITION, CALL LIGHT WITHIN REACH. ENDORSED CARE TO GT HUMPHREY.
--- NOTE | 2018-12-12 19:00 | NUR ---
ASSUMED PATIENT CARE- NOC SHIFT PATIENT IS ALERT AND ORIENTED X4 AND ANSWERS IN COMPLETE SENTENCES. PATIENT IS IN BED PLAYING A GAME ON HER PHONE. NO S/SX OF DISTRESS OR PAIN. DISCUSSED POC WITH PATIENT AND INSTRUCTED PATIENT TO CALL USING CALL LIGHT PRN; PATIENT VERBALIZED UNDERSTANDING.
[2018-12-12 20:00] VITALS: BP 135/83
[2018-12-12] MEDS: traZODone HCL 50 MG TAB PO SCH (21:38)
[2018-12-12] MEDS: PRAMIPEXOLE DIHYDROCHLORIDE MO 0.25 MG TAB PO SCH (21:39)
[2018-12-12] MEDS: ATORVASTATIN 20 MG TAB PO SCH (21:39)
[2018-12-12 21:56] VITALS: BP 135/83
[2018-12-12 22:00] VITALS: BP 135/83
[2018-12-12] MEDS: ALBUTEROL SULF 2.5 MG/0.5ML(0.5%) NEB SOLN NEB PRN (22:39)
[2018-12-12] MEDS: IPRATROPIUM BROM 0.5 MG/2.5ML INH SOL NEB PRN (22:40)
--- NOTE | 2018-12-12 23:00 | NUR ---
FAMILY AT BEDSIDE. FAMILY STATES THAT THEY WERE LET UP TO THE SECOND FLOOR BY SECURITY. THEY STATED THAT THEY HAD JUST ARRIVED FROM [place]. I INFORMED FAMILY OF HOSPITAL VISITING HOURS POLICY, THEY INSISTED TO STAT FOR A FEW MIN. I INFORMED CHARGE NURSE JUNIE DEL REAL. SHE AGREED TO LET THEM VISIT FOR 20 MINUTES. FAMILY IS AWARE.
--- NOTE | 2018-12-12 23:20 | NUR ---
FAMILY OFF FLOOR
[2018-12-13] VITALS (7 sets, daily range): BP systolic 95–147; BP diastolic 58–87
[2018-12-13] MEDS: MORPHINE SULF INJ 2 MG/ML SYRINGE 1ML IV PRN (00:39)
[2018-12-13] MEDS: MICONAZOLE NITRATE 2 % VAGINAL CREAM 45 GM TOP SCH ×3 (05:13→22:04)
[2018-12-13] MEDS: hydrALAZINE HCL 25 MG TAB PO SCH ×3 (05:14→22:03)
--- NOTE | 2018-12-13 07:50 | NUR ---
Opening Shift Note Assumed care of patient, awake, alert, and oriented x4. Patient has no complaints of pain at this time. Patient has IV in right forearm 20g saline locked and flushing well, patient tolerating well. Patient is on 2L NC with no S/S of distress/SOB. Patient's skin is intact. Instructed on POC and to call for assist PRN, will continue to monitor for changes Q1hr and PRN. Bed in lowest locked position, call light within reach.
[2018-12-13] MEDS: SEVELAMER 800 MG TAB PO SCH ×3 (07:51→18:23)
[2018-12-13 09:34] LABS: % Iron Saturation 19.6 % (15-50)
[2018-12-13] MEDS: PANTOPRAZOLE 40 MG TAB PO SCH (09:45)
[2018-12-13] MEDS: CARVEDILOL 3.125 MG TAB PO SCH ×2 (09:46→22:03)
[2018-12-13] MEDS: ASPirin-EC 81 mg tab PO SCH (09:46)
--- NOTE | 2018-12-13 09:52 | NUR ---
Respiratory note: ASSESSED PATIENT FOR PRN BREATHING TX. NO TX WAS NEEDED AT THE MOMENT, PATIENT STATED SHE WAS BREATHING FINE. PATIENT IS AWAKE AND ALERT. PATIENT IS AWARE TO HAVE RESPIRATORY PAGED IF BREATHING TX IS NEEDED. PATIENT BREATH SOUNDS ARE CLEAR, SP02 ON ROOM AIR 94-99%. GT SAHA AND AWARE. Addendum: 12/13/18 at 1110 by MAYA EMERY, RT RT CORRECTION GT FERRARI
--- NOTE | 2018-12-13 10:07 | NUR ---
assessment Patient is a 63 year old female who is alert and oriented. Patients cognitive abilities are intact. Prior to admission patient lived home with family and functioned with assistance. Per patient she will return home to her prior living arrangements post discharge and family will transport her home. Patient informed me she has a rollator for home use. Patient informed me her PCP is Dr Padron. I informed patient her post discharge needs to be determined prior to discharge. I informed patient she has a right to speak to a director social service regarding all care. I informed patient she has a right to participate in any and all discharge planning. Patient is aware of visiting hours on the hospital floor. I informed patient she has a right to privacy. Patient does not have a POA and advanced directive. I have offered patient information on POA and advanced directives. I informed the patient the advantages and benefits of having an Advanced Directive. Patient verbalized understanding and agreed to discharge plan. Addendum: 12/13/18 at 1027 by Donna CAMEJO Amended: Links added.
[2018-12-13] MEDS: LORazepam 2MG/ML-1ML VIAL IV PRN (13:51)
--- NOTE | 2018-12-13 13:59 | NUR ---
OFF UNIT PATIENT TAKEN TO MRI VIA WHEELCHAIR. NO S/S OF DISTRESS NOTED AT TIME OF DEPARTURE.
--- NOTE | 2018-12-13 14:20 | NUR ---
ON UNIT PATIENT TRANSFERRED BACK TO UNIT VIA WHEELCHAIR. NO S/S OF DISTRESS NOTED AT TIME OF ARRIVAL.
[2018-12-13] MEDS ORDERED: ASCORBIC ACID 500 MG TAB PO ONE (22:00)
[2018-12-13] MEDS: traZODone HCL 50 MG TAB PO SCH (22:04)
[2018-12-13] MEDS: ATORVASTATIN 20 MG TAB PO SCH (22:04)
[2018-12-13] MEDS: PRAMIPEXOLE DIHYDROCHLORIDE MO 0.25 MG TAB PO SCH (22:04)
--- NOTE | 2018-12-13 22:44 | NUR ---
Respiratory note: PT SEEN AND ASSESSED FOR PRN MED NEB TX AT 2244. TX IS NOT INDICATED AT THIS TIME. PT DISPLAYING NO SIGNS OF DISTRESS, SHE IS CURRENTLY SLEEPING. HR 83 RR 18 POX 97% ON A 2L NASAL CANNULA.
[2018-12-14] VITALS (66 sets, daily range): BP systolic 31–154; BP diastolic 16–84
[2018-12-14] MEDS: MORPHINE SULF INJ 2 MG/ML SYRINGE 1ML IV PRN ×2 (00:02→21:12)
--- NOTE | 2018-12-14 00:05 | NUR ---
PATIENT TO ROOM 112 REPORT GIVEN TO TIM DEL REAL. PER CHARGE NURSE JUNIE PATIENT DOES NOT NEED TRANSFER ORDERS. MRSA SWAB DONE AND SENT TO LAB. BACTROBAN NASAL OINTMENT ADMINISTERED. ALL BELONGINGS WITH PATIENT.
--- NOTE | 2018-12-14 00:15 | NUR ---
ARRIVAL NOTE PT TRANSFERRED FROM TELE VIA BED. PT HOOKED UP TO BEDSIDE MONITOR. SATURATIONS IN THE 80'S. NASAL CANNULA APPLIED AT 2 L. SATS 97% NOW. NSR ON BEDSIDE MONITOR IN 80'S.
--- NOTE | 2018-12-14 00:20 | NUR ---
PT HAD AN EPISODE OF VOMITING. NO BLOOD NOTED.
[2018-12-14] MEDS: ONDANSETRON HCL 4 MG/2 ML VIAL IV PRN (00:35)
--- NOTE | 2018-12-14 00:35 | NUR ---
PT CONTINUES TO BE NAUSEOUS. ZOFRAN IV GIVEN PER MD ORDERS. WILL CONTINUE TO MONITOR CLOSELY.
[2018-12-14] MEDS ORDERED: CHLORHEXIDINE 4% TOPICAL soln 237ML TOP ONE (01:30)
[2018-12-14] MEDS ORDERED: CHLORHEXIDINE 4% TOPICAL soln 4or8OZ TOP ONE (01:42)
[2018-12-14 03:30] LABS: Basophils # (auto) 0.1 uL; Basophils % (auto) 0.8 % (0.0-2.0); Eosinophils # (auto) 0.2 uL; Eosinophils % (auto) 2.2 % (0.0-7.0); Hematocrit 27.9 % (36.0-46.0); Hemoglobin 9.3 g/dL (12.2-16.2); Lymphocytes % (auto) 12.7 % (10.0-50.0); Mean Corpuscular Hemoglobin 31.9 pg (28.0-32.0); Mean Corpuscular Hgb Conc. 33.2 g/dL (32.0-36.0); Mean Corpuscular Volume 95.9 fL (80.0-100.0); Monocytes # (auto) 1.3 uL; Monocytes % (auto) 16.5 % (0.0-12.0); Neutrophils # (auto) 5.1 uL; Neutrophils % (auto) 67.8 % (37.0-80.0); Platelet Count (auto) 323 10^3/uL (140-450); Red Blood Cells 2.91 10^6/uL (4.0-5.20); Red Cell Distribution Width 17.1 % (11.8-14.3); White Blood Cell 7.6 10^3/uL (4.4-10.8)
--- NOTE | 2018-12-14 03:30 | NUR ---
SURGICAL PREP PT WASHED AND BODY HAIR HAS BEEN CLIPPED. PT'S FULL BODY CLEANSED WITH CHLORHEXIDINE SCRUB. OPEN HEART PRE OP AND POST OP VIDEOS HAVE BEEN WATCHED. PT RINSED MOUTH WITH CHLORHEXIDINE MOUTH WASH FOR 45 SECONDS. CONSENTS HAVE BEEN SIGNED AND IN THE CHART. PT DID NOT HAVE ANY QUESTIONS OR CONCERNS. MORNING LABS DRAWN.
[2018-12-14 03:49] LABS: Albumin 3.4 g/dL (3.4-5.0); BUN/Creatinine Ratio 2.5; Calcium 8.6 mg/dL (8.5-10.1); Potassium 5.3 mmol/L (3.5-5.1)
[2018-12-14 03:52] LABS: Bilirubin, Total 0.6 mg/dL (0.2-1.0); Total Protein 7.7 g/dL (6.4-8.2)
[2018-12-14] MEDS ORDERED: CHLORHEXIDINE 0.12% ORAL rinse 473ML MT ONE (05:00)
[2018-12-14] MEDS ORDERED: NEOMYCIN-BACITRACIN-POLYM 15GM TOP OINT TOP ONE (05:03)
[2018-12-14] MEDS ORDERED: PAPAVERINE HCL 60 MG/2 ML 2ML VIAL ONE (05:03)
[2018-12-14] MEDS ORDERED: HEPARIN 1,000 UNITS/ml 1ML VIAL ONE (05:03)
[2018-12-14] MEDS ORDERED: BACITRACIN INJ 50000 UNIT VIAL ONE (05:04)
[2018-12-14] MEDS ORDERED: NITROGLYCERIN 50MG/250ML 250 ML IV ONE (05:14)
[2018-12-14] MEDS ORDERED: ceFAZolin 1GM/50ML 50 ML IV ONE (05:58)
[2018-12-14] MEDS ORDERED: ROCURONIUM 10MG/ML 10ML VIAL IV ONE (05:59)
[2018-12-14] MEDS: MICONAZOLE NITRATE 2 % VAGINAL CREAM 45 GM TOP SCH ×3 (06:00→23:09)
[2018-12-14] MEDS ORDERED: ALBUMIN 5% 750 ML IV ONE (06:00)
[2018-12-14] MEDS: hydrALAZINE HCL 25 MG TAB PO SCH ×3 (06:00→22:00)
--- NOTE | 2018-12-14 06:00 | NUR ---
OR HERE TO TAKE PT.
[2018-12-14] MEDS ORDERED: MIDAZOLAM HCL 1MG/1ML-2 ML VIAL ONE (06:06)
[2018-12-14] MEDS ORDERED: MANNITOL 20 % (20GM/100ML) 500 ML IV ONE (06:30)
[2018-12-14] MEDS ORDERED: VANCOMYCIN 1GM/250ML 250 ML IV ONE (06:30)
[2018-12-14] MEDS ORDERED: ALBUMIN 25% 400 ML IV ONE (06:30)
[2018-12-14] MEDS ORDERED: ceFAZolin 1GM 2 GM in D5W 5% 50 ML IV ONE (06:30)
[2018-12-14] MEDS ORDERED: MANNITOL FTV 25% 12.5 GM/50 ML 100 ML IV ONE (06:31)
[2018-12-14] MEDS ORDERED: fentaNYL CITRATE 100 MCG/2 ML VL ONE (06:34)
[2018-12-14] MEDS ORDERED: TRANEXAMIC ACID 1,000 MG in SODIUM CHL 0.9% 100 ML IV ONE (07:30)
[2018-12-14] MEDS ORDERED: HEPARIN 30000 UNITS in SODIUM CHLORIDE 0.9% 1000 ML IV ONE (07:30)
[2018-12-14] MEDS ORDERED: ACCU-CHEK COMFORT CURVE STRIP VI ONE (07:30)
[2018-12-14] MEDS ORDERED: AMINOCAPROIC ACID 10 GM in SODIUM CHL 0.9% 100 ML IV ONE (07:30)
[2018-12-14] MEDS ORDERED: NOREPINEPHRINE 8 MG/250ML KIT 250 ML IV ONE (07:30)
[2018-12-14] MEDS ORDERED: AMINOCAPROIC ACID 5 GM in SODIUM CHL 0.9% 250 ML IV ONE (07:30)
[2018-12-14] MEDS ORDERED: InsuLIN R (HUMAN) 100 UNITS in SODIUM CHL 0.9% 99 ML IV ONE (07:30)
[2018-12-14] MEDS ORDERED: TRANEXAMIC ACID 1,000 mg/10ml INJ VIAL IV ONE ×2 (07:30→14:21)
[2018-12-14] MEDS ORDERED: PHENYLEPHRINE INJ 20 MG in SODIUM CHL 0.9% 250 ML IV ONE (07:30)
[2018-12-14] MEDS ORDERED: EPINEPHrine HCL 4 MG in D5W 5% 250 ML IV ONE (07:30)
[2018-12-14] MEDS ORDERED: fentaNYL CITRATE 5 ML ONE ×3 (07:44→07:54)
[2018-12-14] MEDS: SEVELAMER 800 MG TAB PO SCH ×3 (08:00→18:00)
--- NOTE | 2018-12-14 08:00 | NUR ---
HOLD P.T. TODAY BECAUSE OF PROCEDURE.
[2018-12-14] MEDS: PANTOPRAZOLE 40 MG TAB PO SCH (10:00)
[2018-12-14] MEDS: CARVEDILOL 3.125 MG TAB PO SCH ×2 (10:00→22:00)
[2018-12-14] MEDS: ASPirin-EC 81 mg tab PO SCH (10:00)
[2018-12-14] MEDS ORDERED: DEXTROSE 50% SYRINGE 50 ML IV ONE ×2 (10:18→11:06)
[2018-12-14] MEDS ORDERED: VANCOMYCIN HCL 1000 MG VL ONE ×2 (12:26→12:31)
[2018-12-14] MEDS: NICARDIPINE 25MG/250ML BAG KIT 250 ML IV SCH ×3 (13:54→23:53)
[2018-12-14] MEDS ORDERED: INSULIN DRIP 100 UNIT/100ML 100 ML IV SCH (13:54)
[2018-12-14] MEDS ORDERED: NITROGLYCERIN 50MG/250ML 250 ML IV SCH (13:54)
[2018-12-14] MEDS: DexMEDEtomidine 400 MCG in D5W 5% 96 ML IV SCH (13:54)
[2018-12-14] MEDS: PHENYLEPHRINE IV 250 ML IV SCH (13:54)
[2018-12-14] MEDS: MILRINONE 20MG/100ML 100 ML IV SCH ×2 (13:54→23:44)
[2018-12-14] MEDS ORDERED: SODIUM CHLORIDE 0.9% 200 ML IV PRN (13:54)
[2018-12-14] MEDS ORDERED: PROPOFOL 100 ML IV SCH (13:54)
[2018-12-14] MEDS: NOREPINEPHRINE 8 MG/250ML KIT 250 ML IV SCH (13:54)
[2018-12-14] MEDS ORDERED: SODIUM BICARBONATE 8.4% INJ 50ML SYRINGE IV PRN (14:00)
[2018-12-14] MEDS ORDERED: DEXTROSE (50%) 50ML SYRG IV PRN (14:00)
[2018-12-14] MEDS ORDERED: ALBUMIN 5% 250 ML IV PRN (14:00)
[2018-12-14] MEDS: ACCU-CHEK COMFORT CURVE STRIP VI SCH ×10 (14:00→23:16)
[2018-12-14] MEDS ORDERED: POTASSIUM CHL 20MEQ/100ML 100 ML IV PRN (14:00)
[2018-12-14] MEDS ORDERED: ALBUMIN 25% 250 ML IV PRN (14:00)
[2018-12-14] MEDS ORDERED: CALCIUM GLUC 4.65meq/50ml D5AE 50 ML IV PRN (14:00)
[2018-12-14] MEDS ORDERED: MAGNESIUM SULFATE 1GM/100ML 100 ML IV PRN (14:00)
[2018-12-14] MEDS: SODIUM CHLORIDE 0.9% 500 ML IV SCH (14:00)
--- NOTE | 2018-12-14 14:00 | NUR ---
Pt. arrived from [facility] accompanied by cardiothoracic team on hemodynamic monitoring. Report received from Dr. De Anda and Kavya DEL REAL in O.R. Surgery: Cabg x 4 - CONNER to LAD, SAPH to DIAG, SAPH to Marginal, SAPH to RPDA. Endoscopic Vein Randolph to left Leg. Lines: PA catheter around 61 cm at the Hub of the Dual lumen Cordis to the Left IJ [place] to right radial artery Pacer wires: V pacer wires Chest Tube: Mediastinal, left pleural Knight: 16 F, patient anuric ET tube: 7.5, 23 cm lip line Gtts: Diprivan, NGT, NS, Levophed Hemodynamics: CO/CI: 2.4/1.2 HR: 90 Assisted BP: 113/56 MAP: 75 CVP: 8 PAP: 33/19 SVR: 2224 SVO2: 66% SPO2: 98% Immediate Post- Op recovery Pt arrived to ICU hemodynamically stable: Patient chest tube output is moderate, serosanguineous. MD aware. Vitals stable, no signs of distress. Lungs coarse but diminished, tolerating vent. Incision/dressings are CDI. Knight catheter noted, hung to gravity. Chest tubes connect to atrium. Skin assessment performed and patient repositioned on side. CXR performed at bedside as well as EKG. Blood drawn and sent to lab. ABG and Mixed venous obtained and given to RT. Will continue to monitor and titrate medications.
[2018-12-14 14:03] LABS: INR 1.15 (0.9-1.15); Partial Thromboplastin Time 36.7 sec (23.78-33.04); Prothrombin Time 12.2 sec (9.27-12.13)
[2018-12-14 14:08] LABS: Albumin 3.8 g/dL (3.4-5.0); Calcium 7.9 mg/dL (8.5-10.1)
[2018-12-14 14:13] LABS: Bilirubin, Total 1.5 mg/dL (0.2-1.0); Total Protein 5.9 g/dL (6.4-8.2)
[2018-12-14 14:15] LABS: Potassium 5.6 mmol/L (3.5-5.1)
[2018-12-14 14:16] LABS: BUN/Creatinine Ratio 2.3
[2018-12-14] MEDS ORDERED: MAGNESIUM SULF 50% 40 MEQ/10 ML VL IV ONE (14:21)
[2018-12-14] MEDS ORDERED: ADENOSINE 6 MG/2 ML INJ IV ONE (14:21)
[2018-12-14] MEDS ORDERED: POTASSIUM CHL 2MEQ/ML 20ML IV ONE (14:21)
[2018-12-14] MEDS ORDERED: CALCIUM CHLOR(10%) 100MG/ML 10ML SYRINGE IV ONE (14:21)
[2018-12-14] MEDS ORDERED: PHENYLEPHRINE HCL 10 MG/ML VL IV ONE (14:21)
[2018-12-14] MEDS ORDERED: SODIUM BICARBONATE 8.4% INJ 50ML SYRINGE IV ONE (14:21)
[2018-12-14] MEDS ORDERED: LIDOCAINE HCL 100 MG/5ML (2%) SYRG INJ IV ONE (14:21)
--- NOTE | 2018-12-14 14:45 | NUR ---
FAMILY Patient Luis at bedside. He has been updated on plan of care. speaking with him.
[2018-12-14 15:06] LABS: Magnesium 3.6 mg/dL (1.6-2.6)
[2018-12-14 15:15] LABS: Phosphorus 2.9 mg/dL (2.5-4.90)
[2018-12-14 15:19] LABS: Albumin 3.8 g/dL (3.4-5.0); BUN/Creatinine Ratio 2.6; Calcium 6.4 mg/dL (8.5-10.1); Magnesium 3.4 mg/dL (1.6-2.6)
[2018-12-14 15:22] LABS: Bilirubin, Total 1.8 mg/dL (0.2-1.0); Hematocrit 25.2 % (36.0-46.0); Hemoglobin 8.5 g/dL (12.2-16.2); Mean Corpuscular Hemoglobin 31.5 pg (28.0-32.0); Mean Corpuscular Hgb Conc. 33.7 g/dL (32.0-36.0); Mean Corpuscular Volume 93.3 fL (80.0-100.0); Phosphorus 2.9 mg/dL (2.5-4.90); Platelet Count (auto) 163 10^3/uL (140-450); Red Cell Distribution Width 16.9 % (11.8-14.3); White Blood Cell 10.3 10^3/uL (4.4-10.8)
[2018-12-14 15:26] LABS: Potassium 6.9 mmol/L (3.5-5.1)
[2018-12-14 15:28] LABS: Basophils % (manual) 0 (0.0-2.0); Blast Cells 0; Eosinophils % (manual) 0 (0-7); Metamyelocytes % 0; Myelocytes % 0; Promyelocytes % 0; Reactive Lymphocytes 0
--- NOTE | 2018-12-14 15:30 | NUR ---
SAMANTA Hoffmann notified of potassium, hgb, and chest tube output. He would like us to consult Nephrology regarding high potassium levels. No new orders received at this time. Continue to monitor.
[2018-12-14 15:33] LABS: INR 1.12 (0.9-1.15); Partial Thromboplastin Time 40.1 sec (23.78-33.04); Prothrombin Time 11.9 sec (9.27-12.13)
--- NOTE | 2018-12-14 15:35 | NUR ---
PAGED paged regarding potassium of 6.9, Awaiting call back.
[2018-12-14] MEDS: PROPOFOL 100 ML IV SCH ×2 (15:40→22:18)
--- NOTE | 2018-12-14 16:18 | NUR ---
AT BEDSIDE at bedside assessing patient. He ordered for another potassium level to be drawn to assess for correct results. He would like to titrate down sedation and turn off Diprivan at 0300 and for Precedex to begin.
--- NOTE | 2018-12-14 16:40 | NUR ---
PACEMAKER performed pacemaker check
--- NOTE | 2018-12-14 17:00 | NUR ---
NEPHROLOGY ROUNDS at bedside assessing patient. She is aware of potassium level. Ester awaiting repeat lab levels.
[2018-12-14] MEDS: ceFAZolin 1GM 2 GM in D5W 5% 100 ML IV SCH (17:08)
[2018-12-14] MEDS ORDERED: VANCOMYCIN 1GM/250ML 250 ML IV SCH (18:00)
--- NOTE | 2018-12-14 18:00 | NUR ---
RENAGEL RENAGEL NOT GIVEN PATIENT IS INTUBATED AND THE MEDICATION CANNOT BE CRUSHED AND BE GIVEN THROUGH OGT
[2018-12-14] MEDS: ALBUTEROL SULF 2.5 MG/0.5ML(0.5%) NEB SOLN NEB SCH ×2 (18:06→22:11)
[2018-12-14] MEDS: IPRATROPIUM BROM 0.5 MG/2.5ML INH SOL NEB SCH ×2 (18:06→22:11)
--- NOTE | 2018-12-14 19:00 | NUR ---
dressing changed Left upper thigh harvest incision site oozing a bit Telfa dressing changed,cleaned with CHG swab then covered with Telfa and Tegaderm will continue to monitor
--- NOTE | 2018-12-14 19:27 | NUR ---
REPORT Report given to Susie DEL REAL and Haydee DEL REAL, care endorsed
--- NOTE | 2018-12-14 19:30 | NUR ---
LEVOPHED BP GETTING LOWER THE DIALYSIS STARTED - IV LEVOPHED STARTED
--- NOTE | 2018-12-14 20:15 | NUR ---
DR GALLEGOS TO UNIT DR GALLEGOS TO UNIT TO EVALUATE PT. PT CURRENTLY RECEIVING HD TREATMENT AND TOLERATING WELL. UPDATED MD REGARDING CURRENT GTT'S. NO NEW ORDERS GIVEN.
[2018-12-14 20:44] LABS: Band Neutrophils % (manual) 6; Lymphocytes % (manual) 2 (10.0-50.0); Monocytes % (manual) 2 (0-12)
--- NOTE | 2018-12-14 21:10 | NUR ---
PAIN PT AWAKE. PT NODS HEAD YES WHEN ASKED IF HAVING PAIN. MEDICATED PT WITH MORPHINE SIVP PER ORDER (SEE EMAR). PT CURRENTLY RECEIVING H.D. TREATMENT FOR WHICH PROPOFOL DIALYZES OUT. PT CURRENTLY ABLE TO NOD HEAD YES OR NO TO SIMPLE QUESTION. ABLE TO FOLLOW COMMANDS.
[2018-12-14] MEDS: PRAMIPEXOLE DIHYDROCHLORIDE MO 0.25 MG TAB PO SCH (22:00)
[2018-12-14] MEDS: ATORVASTATIN 20 MG TAB PO SCH (22:00)
[2018-12-14] MEDS: traZODone HCL 50 MG TAB PO SCH (22:00)
--- NOTE | 2018-12-14 22:17 | NUR ---
H.D. COMPLETE 1L FLUID REMOVED. PT TOLERATED WELL.
--- NOTE | 2018-12-14 22:30 | NUR ---
LEVOPHED IV LEVOPHED TITRATED DOWN PATIENT HAD FINISHED HD SBP 130 MMHG
[2018-12-14] MEDS: VANCOMYCIN 1GM/250ML 250 ML IV SCH (22:35)
--- NOTE | 2018-12-14 22:39 | NUR ---
HOLD LAB DRAW FOR 2 HRS PER NEPHROLOGY DO NOT DRAW LABS UNTIL 2 HOURS POST H.D. WILL SEND LABS AFTER MIDNIGHT.
[2018-12-14] MEDS: CHLORHEXIDINE 0.12% ORAL rinse 473ML MT SCH (22:50)
[2018-12-15] VITALS (101 sets, daily range): BP systolic 27–223; BP diastolic 12–96
[2018-12-15] MEDS: ACCU-CHEK COMFORT CURVE STRIP VI SCH ×13 (00:14→12:17)
[2018-12-15 00:28] LABS: Basophils # (auto) 0 uL; Basophils % (auto) 0.3 % (0.0-2.0); Eosinophils # (auto) 0 uL; Hematocrit 27.9 % (36.0-46.0); Hemoglobin 9.5 g/dL (12.2-16.2); Lymphocytes # (auto) 0.5 uL; Lymphocytes % (auto) 4.6 % (10.0-50.0); Mean Corpuscular Hemoglobin 31.7 pg (28.0-32.0); Mean Corpuscular Volume 93.1 fL (80.0-100.0); Monocytes # (auto) 0.3 uL; Neutrophils % (auto) 92.1 % (37.0-80.0); Platelet Count (auto) 161 10^3/uL (140-450); Red Cell Distribution Width 17.1 % (11.8-14.3); White Blood Cell 10.8 10^3/uL (4.4-10.8)
[2018-12-15 00:47] LABS: BUN/Creatinine Ratio 2.4; Calcium 8.3 mg/dL (8.5-10.1); Magnesium 2.6 mg/dL (1.6-2.6); Potassium 3.7 mmol/L (3.5-5.1)
[2018-12-15 00:56] LABS: Phosphorus 3.7 mg/dL (2.5-4.90)
[2018-12-15] MEDS: DexMEDEtomidine 400 MCG in D5W 5% 96 ML IV SCH ×2 (00:58→04:12)
[2018-12-15] MEDS: ceFAZolin 1GM 2 GM in D5W 5% 100 ML IV SCH ×3 (00:59→16:39)
--- NOTE | 2018-12-15 01:00 | NUR ---
IV LEAKING/NEW IV START PT 20 G IV TO POST R. FOREARM LEAKING. NO S/S OF INFILTRATION. 20 G CATH REMOVED/INTACT. NEW 22 G IV PLACED TO R. ANT. FOREARM.
[2018-12-15] MEDS: PROPOFOL 100 ML IV SCH (01:53)
--- NOTE | 2018-12-15 03:15 | NUR ---
INCISIONAL CARE ARSENIO WRAPS REMOVED FROM R. AND L. LEG. VEIN GRAFT HARVEST INCISION SITE TO R. MEDIAL KNEE, L. GROIN, L. UPPER THIGH, AND L. MEDIAL KNEE CLEANSED WITH CHLORHEXIDINE SWABS PER MD PREFERENCE. INCISIONS COVERED WITH TELFA NON ADHERENT DRESSINGS, ARSENIO WRAPS RE-APPLIED. CHEST TUBE INSERTION SITES CLEANSED ABOVE. NEW STERILE 4X4'S AND MEDIPORE TAPE APPLIED. PT TOLERATED WELL.
--- NOTE | 2018-12-15 03:30 | NUR ---
HYGIENE PT BATH LINEN CHANGE PROVIDED. PT BATHED WITH CHLORHEXIDINE WIPES. NEW GOWN PROVIDED. NEW LINENS.
--- NOTE | 2018-12-15 03:40 | NUR ---
Knight catheter dc'd Patient is a dialysis patient and is anuric. Knight dc'd with clean technique following deflation of balloon. Patient tolerated well. Continue care.
[2018-12-15 04:21] LABS: Basophils # (auto) 0.1 uL; Basophils % (auto) 0.7 % (0.0-2.0); Eosinophils # (auto) 0 uL; Hematocrit 27.6 % (36.0-46.0); Hemoglobin 9.2 g/dL (12.2-16.2); Lymphocytes # (auto) 0.7 uL; Lymphocytes % (auto) 4.8 % (10.0-50.0); Mean Corpuscular Hgb Conc. 33.3 g/dL (32.0-36.0); Mean Corpuscular Volume 93.1 fL (80.0-100.0); Monocytes # (auto) 1.5 uL; Monocytes % (auto) 9.8 % (0.0-12.0); Neutrophils # (auto) 12.8 uL; Neutrophils % (auto) 84.7 % (37.0-80.0); Platelet Count (auto) 190 10^3/uL (140-450); Red Blood Cells 2.97 10^6/uL (4.0-5.20); White Blood Cell 15.1 10^3/uL (4.4-10.8)
[2018-12-15 04:38] LABS: BUN/Creatinine Ratio 2.5; Magnesium 2.8 mg/dL (1.6-2.6); Phosphorus 4.6 mg/dL (2.5-4.90); Potassium 4.7 mmol/L (3.5-5.1)
[2018-12-15] MEDS: NICARDIPINE 25MG/250ML BAG KIT 250 ML IV SCH ×4 (04:54→19:54)
[2018-12-15] MEDS: MORPHINE SULF INJ 2 MG/ML SYRINGE 1ML IV PRN ×3 (05:00→21:26)
--- NOTE | 2018-12-15 05:00 | NUR ---
SEDATION IV Propofol off IV Precedex at 0.2 mcg/kg/min will continue to monitor
[2018-12-15] MEDS: MICONAZOLE NITRATE 2 % VAGINAL CREAM 45 GM TOP SCH ×3 (05:40→21:51)
[2018-12-15] MEDS: hydrALAZINE HCL 25 MG TAB PO SCH ×3 (05:41→21:39)
--- NOTE | 2018-12-15 06:08 | NUR ---
MD CALLED DR. ENGLAND CALLED UPDATED HIM. TELEPHONE ORDER RECEIVED: 1.TO START WEANING HER OFF THE VENT PUT PATIENT ON SIMV 8,IF SHE BREATHES ABOVE 8/MIN THEN CAN DECREASE TO 6/MIN 2. CLARIFIED ANCEF ORDER, PATIENT HAVING ESRD - CONTINUE WITH 2GM ORDERED
--- NOTE | 2018-12-15 06:10 | NUR ---
RT AT BEDSIDE NOTED OF DR. ENGALND'S ORDERS
[2018-12-15] MEDS: IPRATROPIUM BROM 0.5 MG/2.5ML INH SOL NEB SCH ×5 (06:16→22:06)
[2018-12-15] MEDS: ALBUTEROL SULF 2.5 MG/0.5ML(0.5%) NEB SOLN NEB SCH ×5 (06:16→22:06)
--- NOTE | 2018-12-15 06:54 | NUR ---
MECHANOTHERAPIST CALLED TALKED TO FINA (MECHANOTHERAPIST) INFORMED THAT PATIENT HAD BEEN STABLE FOR THE NIGHT,WAKING UP
--- NOTE | 2018-12-15 07:15 | NUR ---
CPAP TRIAL INITIATED BY RESPIRATORY THERAPIST PATIENT ON LOW DOSE OF PRECEDEX, ANSWERING YES/NO QUESTIONS APPROPRIATELY. RN AT BEDSIDE MONITORING CLOSELY. WILL CALL MD AT END OF TRIAL WITH WEANING PARAMETERS
--- NOTE | 2018-12-15 07:30 | NUR ---
DR LYNCH AT BEDSIDE NO NEW ORDERS AT THIS TIME
[2018-12-15] MEDS: SEVELAMER 800 MG TAB PO SCH ×3 (08:00→18:00)
--- NOTE | 2018-12-15 08:45 | NUR ---
SPOKE WITH DR ENGLAND UPDATED ON PATIENTS CURRENT STATUS AND HEMODYNAMICS. STATES TO NOTIFY MAINTENANCE SHOP WELDER OF WEANING PARAMETERS
--- NOTE | 2018-12-15 09:00 | NUR ---
PAGED DR DAHL CONSULT WAS PREVIOUSLY PLACED FOR DR DAHL BY PRIMARY HOSPITALIST
--- NOTE | 2018-12-15 09:22 | NUR ---
SPOKE WITH DR LISA SAMUELS STATES HAS NOT SEEN PATIENT YET. RN UPDATED ON CURRENT STATUS
--- NOTE | 2018-12-15 09:30 | NUR ---
DR Tyrone DOE AT BEDSIDE STATES DR ENGLAND CALLED HIM TO SEE PATIENT. INFORMED DR DOE RN PREVIOUSLY SPOKE TO DR DAHL REGARDING PENDING CONSULT. DR DOE STATES HE WILL SEE PATIENT. REVIEWED CASE WITH PATIENT AND WEANING PARAMETERS GIVEN TO MD. RECEIVED ORDERS TO EXTUBATE
[2018-12-15] MEDS: MILRINONE 20MG/100ML 100 ML IV SCH ×2 (09:34→19:24)
--- NOTE | 2018-12-15 09:37 | NUR ---
HOLD P.T. THIS A.M. PT IS CONFUSED AND NOT SAFE TO GET OUT OF BED.
--- NOTE | 2018-12-15 09:53 | NUR ---
EXTUBATION RECEIVED ORDERS TO EXTUBATE. RESPIRATORY THERAPIST AND RN AT BEDSIDE. PATIENT SUCTIONED PRIOR TO REMOVAL OF ET TUBE, PATIENT TOLERATED WELL. PLACED ON COOL MIST MASK. PATIENT EDUCATED TO NO SPEAK AT THIS TIME AND REST VOCAL CORDS. PATIENT NODDED YES IN UNDERSTANDING. PATIENTS HEMODYNAMICS STABLE. WILL CONTINUE TO MONITOR CLOSELY
--- NOTE | 2018-12-15 09:53 | NUR ---
RT NOTE: PT. EXTUBATED WITHOUT INCIDENT PER DR. YOUNG VERBAL ORDER. NO STRIDOR NOTED. PT. PLACED ON 40% COOL AEROSOL MASK. PT. TOLERATING WELL. GT BANKS AT BEDSIDE. PT. HR 87, RR 18, POX 99%. WILL CONTINUE TO MONITOR.
[2018-12-15] MEDS: CHLORHEXIDINE 0.12% ORAL rinse 473ML MT SCH ×2 (10:00→22:03)
[2018-12-15] MEDS: CARVEDILOL 3.125 MG TAB PO SCH ×2 (10:00→21:39)
[2018-12-15] MEDS: ASPirin-EC 81 mg tab PO SCH (10:00)
[2018-12-15] MEDS: PANTOPRAZOLE 40 MG TAB PO SCH (10:00)
--- NOTE | 2018-12-15 11:00 | NUR ---
WOUND CARE NOTE: IN TO SEE PATIENT AT THIS TIME FOR LOW APRYL SCORE OF 12. PATIENT RECENTLY UNDERWENT CABG FOR HEART DISEASE. SHE HAS BEEN EXTUBATED, IS SITTING UP IN BED, BIPAP MASK APPLIED. SHE IS WOUND FREE AT THIS TIME, WITH EXCEPTION OF SURGICAL INCISION SITES. SKIN/WOUND CARE PLAN IMPLEMENTED. PATIENT WOULD BENEFIT FROM: FREQUENT TURN SCHEDULE Q 2 HOURS, PRN CONDITION PERMITS, WITH PRESSURE REDISTRIBUTION USING PILLOWS/WEDGES, BID/PRN APPLICATION WITH MOISTURE BARRIER CREAM, OPTIFOAM GENTLE SACRAL DRESSING PREVENTATIVE, DIETARY CONSULT FOR LOW APRYL SCORE OF 12, CONTINUED MONITORING BY WOUND CARE TEAM.
--- NOTE | 2018-12-15 11:00 | NUR ---
DR ENGLAND AT BEDSIDE NEW ORDERS RECEIVED.
[2018-12-15] MEDS ORDERED: NITROGLYCERIN 0.4MG/HR TOPICAL PATCH TD ONE (11:45)
--- NOTE | 2018-12-15 11:55 | NUR ---
PATIENTS DEAN AT BEDSIDE UPDATED ON PLAN OF CARE
[2018-12-15] MEDS: NOREPINEPHRINE 8 MG/250ML KIT 250 ML IV SCH (12:50)
[2018-12-15] MEDS: PHENYLEPHRINE IV 250 ML IV SCH (12:51)
--- NOTE | 2018-12-15 13:30 | NUR ---
ICE CHIPS PROVIDED AND PATIENT STATED IT HURTS TO MUCH TO SWALLOW. WILL REASSESS AGAIN LATER
--- NOTE | 2018-12-15 13:40 | NUR ---
PAGED DR MAURER AND DR BENDER OFFICE PATIENT COMPLAINING OF ITCHING AND UNABLE TO SWALLOW PO MEDS AT THIS TIME, AWAITING RETURN CALL
--- NOTE | 2018-12-15 13:47 | NUR ---
SPOKE WITH DR FARRAR RECEIVED NEW ORDERS
[2018-12-15] MEDS: SODIUM CHLORIDE 0.9% 500 ML IV SCH (13:54)
[2018-12-15] MEDS ORDERED: diphenhdrAMINE HCL 50 MG/1 ML VL IV PRN (14:00)
--- NOTE | 2018-12-15 14:10 | NUR ---
ARTERIAL LINE AND PA CATHETER REMOVED ORDERED REMOVED RIGHT RADIAL ARTERIAL LINE USING ASEPTIC TECHNIQUE, APPLYING MANUAL PRESSURE WITH 4X4 GAUZE AND THEN APPLYING 4.4 GAUZE AND PRESSURE TAPE. REMOVED PA CATHETER FROM LEFT IJ. VERIFIED PLACEMENT ON CHEST XRAY, NO ECTOPY NOTED CATHETER REMOVED. PATIENT TOLERATED WELL.
[2018-12-15] MEDS: ACETYLCYSTEINE 10 %(100MG/ML) SOL 4ML NEB SCH ×2 (14:45→22:06)
--- NOTE | 2018-12-15 15:01 | NUR ---
Nutrition Follow-up Notes Wt.: 95.0 kg Pt was on BIPAP just extubated when rounded this am with RN by bedside. per RN pt with no new diet order and is still NPO. per records pt s/p CABG. pt is now advanced to clear liq diet with no PO recorded yet Est. Needs ABW [id number] kcal (25-27 kcal/kgBW), 91-106 gms pro (1.2-1.4 gms/kgBW r/t pt on HD). Will continue to monitor pertinent labs and reassess nutrient need prn Labs: CREAT 6.38 H, CA 8.0 L. Skin: Wallace scale 11, high risk incision at site of sx per monotype setter. GI: Pt had 1 BM 12/13 per monotype setter. PES: Decreased nutrient needs r/t adiposity aeb pt`s high BMI of 35.8 kgm2 Altered nutrition related lab values r/t current/chronic medical condition aeb elev RFT hypocalcemia Will continue to monitor PO intake, skin status, pertinent labs and weight trend. F/u in 2-3 days. Rec.: 1.) advance diet as medically feasible. 2) refer to [facility] dietitian on DC. 2) continue current plan of care
--- NOTE | 2018-12-15 15:30 | NUR ---
PROVIDED ICE CHIPS AND PATIENT TOLERATED WELL. WATER PROVIDED AND PATIENT SWALLOWED WITHOUT DIFFICULTY.
--- NOTE | 2018-12-15 16:05 | NUR ---
DR GALLEGOS AT BEDSIDE NO NEW ORDERS AT THIS TIME
[2018-12-15 16:17] LABS: BUN/Creatinine Ratio 3.3; Calcium 8.3 mg/dL (8.5-10.1); Potassium 4.7 mmol/L (3.5-5.1)
--- NOTE | 2018-12-15 16:34 | NUR ---
DR FARRAR AT BEDSIDE NO NEW ORDERS AT THIS TIME
--- NOTE | 2018-12-15 18:00 | NUR ---
JUAN ANTONIO HELD PATIENT STATES SHE TAKES WITH FOOD AND DOES NOT WANT TO EAT.
--- NOTE | 2018-12-15 18:08 | NUR ---
Respiratory note: PLACED PT ON RESPIRONICS V60 BIPAP RENTAL, BIPAP CONNECTED TO RED OUTLET AND O2 SOURCE ALARMS ARE SET AND AUDIBLE AMBU BAG AND MASK AT BEDSIDE, PLACED ON SIZE M MASK. NO BREAKDOWN NOTED PRIOR TO PLACEMENT. LIQUICELL ON BRIDGE OF NOSE. MED NEB TX GIVEN INLINE. PTS GOAL FOR TX IS 45 MINUTES. PT COMPLIANT WITH TX. WILL CONTINUE TO MONITOR. RN DARREN AWARE OF PLACEMENT.
--- NOTE | 2018-12-15 18:45 | NUR ---
PROVIDED DINNER TRAY (CLEAR LIQUIDS) PATIENT STATES SHE DOES NOT HAVE AN APPETITE BUT WILL TRY TO EAT SOME A LITTLE LATER.
--- NOTE | 2018-12-15 18:50 | NUR ---
Respiratory note: PTS BIPAP 1800 TX COMPLETED. PT OFF NOW AND PLACED BACK ON CANNULA. RN DARREN ORDONEZ.
--- NOTE | 2018-12-15 19:30 | NUR ---
OPEN NOTES ASSUMED CARE OF PATIENT. PATIENT IS AWAKE AND ALERT. SHE SAID SHE DOESN'T REMEMBER WHAT HAPPENED TO HER AND THAT SHE CAME IN BECAUSE OF SOB. INFORMED HER OF THE PROCEDURES AND PLAN OF CARE FOR HER. PATIENT IS ON NASAL CANNULA 2L/MIN ,BREATHING COMFORTABLY. IS DONE - 500 MLS. ENCOURAGED TO DO IT WHILE AWAKE. ECG SINUS TACHYCARDIA HR 100-105/MIN, BP STABLE. COMPLAINED OF SOME PAIN WHEN MOVED. - ENCOURAGED TO DO DEEP BREATHING EXERCISES AND USE THE HEART PILLOW STERNOTOMY INCISION WITH AQUA SEAL, CHEST TUBES MEDIASTINAL AND LEFT CONNECTED TO OASIS DRAIN TO -20CM SUCTION WITH SANGUINEOUS OUTPUT, NO AIR LEAK NOTED, DRESSING DRY AND INTACT BOTH LEGS STILL WITH ARSENIO WRAPS - WILL REMOVE AND ASSESS BACK CHECKED - SKIN INTACT LEFT IJ CORDIS DRESSING DRY AND INTACT. RIGHT FA G22 SALINE FLUSHED. WILL CONTINUE TO MONITOR
--- NOTE | 2018-12-15 20:30 | NUR ---
PAIN PATIENT COMPLAINED OF PAIN AT THE INCISION AREA THE CHEST ENCOURAGED DEEP BREATHING EXERCISES WILL MEDICATE
--- NOTE | 2018-12-15 20:30 | NUR ---
SKIN ASSESSMENT ARSENIO WRAPS REMOVED AT BOTH LEGS INCISION WELL APPROXIMATED INCISION SITES CLEANED WITH CHG SWABS LEFT GROIN NOTED TO HAVE HEMATOMA - MANUAL PRESSURE APPLIED FOR 10 MINS SKIN AROUND THE AREA WAS SOFTER AFTERWARDS SITE COVERED WITH PRESSURE DRESSING PEDAL PULSES PALPABLE,SKIN WARM AND DRY WILL PAGE DR. GALLEGOS TO INFORM
[2018-12-15] MEDS: HYDROcodone-ACET 5/325MG TAB PO PRN (20:36)
--- NOTE | 2018-12-15 21:15 | NUR ---
HYGIENE PATIENT CLEANED WITH CHG WIPES, LINENS CHANGED.
--- NOTE | 2018-12-15 21:30 | NUR ---
ANXIOUS/RESTLESS PATIENT SUDDENLY BECOMES ANXIOUS AFTER TURNING HER TO HER SIDE. SHE WANTED TO GET UP AND SIT ON THE CHAIR. SHE TAKES HER NASAL CANNULA AND EYE GLASSES OFF. INFORMED HER THAT BECAUSE OF THE HEMATOMA ON THE LEFT GROIN THAT SHE NEEDS TO STAY IN BED TONIGHT. HEAD OF BED PROPPED UP.NASAL CANNULA REAPPLIED. RN WAS ABLE TO ASK HER TO CALM DOWN AFTER FEW MINUTES. EXPLAINED AGAIN HER CONDITION AND SHE UNDERSTOOD.
[2018-12-15] MEDS: ATORVASTATIN 20 MG TAB PO SCH (21:39)
[2018-12-15] MEDS: traZODone HCL 50 MG TAB PO SCH (21:47)
[2018-12-15] MEDS: PRAMIPEXOLE DIHYDROCHLORIDE MO 0.25 MG TAB PO SCH (21:48)
--- NOTE | 2018-12-15 22:00 | NUR ---
PAIN RE-ASSESS PER PATIENT,PAIN GETTING LESSER PATIENT HUGGING HER HEART PILLOW WILL CONTINUE TO MONITOR
[2018-12-15] MEDS: VANCOMYCIN 1GM/250ML 250 ML IV SCH (22:03)
--- NOTE | 2018-12-15 22:06 | NUR ---
Respiratory note: PLACED PT ON BIPAP W/NEB TX, BIPAP CONNECTED TO RED OUTLET AND O2 SOURCE ALARMS ARE SET AND AUDIBLE AMBU BAG AND MASK AT BEDSIDE, PLACED ON SIZE M MASK. NO BREAKDOWN NOTED PRIOR TO PLACEMENT. LIQUICELL ON BRIDGE OF NOSE. MED NEB TX GIVEN INLINE. PTS GOAL FOR TX IS 45 MINUTES. PT COMPLIANT WITH TX. WILL CONTINUE TO MONITOR. GT SERNA AT BEDSIDE AND AWARE OF PLACEMENT.
--- NOTE | 2018-12-15 22:18 | NUR ---
MARIA A SAMUELS PAGED DR. GALLEGOS TO INFORM ABOUT THE HEMATOMA ON THE PATIENT'S LEFT GROIN AREA
--- NOTE | 2018-12-15 22:52 | NUR ---
Respiratory note: BIPAP TX COMPLETED, PT OFF BIPAP. PLACED BACK ON 2LNC. WILL CONTINUE TO MONITOR.
[2018-12-16] VITALS (90 sets, daily range): BP systolic 84–152; BP diastolic 38–98
--- NOTE | 2018-12-16 | NUR ---
SKIN CHECKED/ HEMATOMA LEFT GROIN CHECKED - SOFT TO TOUCH, DRESSING INTACT Addendum: 12/16/18 at 0320 by Susie Main RN ON KACI ODELL
[2018-12-16] MEDS: ceFAZolin 1GM 2 GM in D5W 5% 100 ML IV SCH ×2 (00:35→13:35)
[2018-12-16] MEDS: NICARDIPINE 25MG/250ML BAG KIT 250 ML IV SCH ×5 (00:54→20:54)
[2018-12-16 04:23] LABS: Basophils # (auto) 0 uL; Eosinophils # (auto) 0 uL; Hemoglobin 8.1 g/dL (12.2-16.2); Monocytes # (auto) 1.7 uL; Red Blood Cells 2.59 10^6/uL (4.0-5.20)
[2018-12-16 04:25] LABS: Basophils % (auto) 0.4 % (0.0-2.0); Hematocrit 24.7 % (36.0-46.0); Lymphocytes # (auto) 0.8 uL; Lymphocytes % (auto) 6.5 % (10.0-50.0); Mean Corpuscular Hemoglobin 31.1 pg (28.0-32.0); Mean Corpuscular Hgb Conc. 32.7 g/dL (32.0-36.0); Mean Corpuscular Volume 95.2 fL (80.0-100.0); Monocytes % (auto) 14.2 % (0.0-12.0); Neutrophils # (auto) 9.5 uL; Neutrophils % (auto) 78.9 % (37.0-80.0); Nucleated Red Blood Cells % 0.2 %; Platelet Count (auto) 175 10^3/uL (140-450); Red Cell Distribution Width 16.8 % (11.8-14.3); White Blood Cell 12.1 10^3/uL (4.4-10.8)
[2018-12-16 04:44] LABS: Calcium 8.2 mg/dL (8.5-10.1)
[2018-12-16 04:47] LABS: BUN/Creatinine Ratio 4.1
[2018-12-16] MEDS: MILRINONE 20MG/100ML 100 ML IV SCH ×2 (05:14→15:04)
--- NOTE | 2018-12-16 05:50 | NUR ---
CHEST XRAY DONE
--- NOTE | 2018-12-16 05:53 | NUR ---
SKIN/HEMATOMA CHECKED PATIENT LEFT GROIN AND THIGH - SOFT TO TOUCH, NO OTHER HEMATOMA NOTED Addendum: 12/16/18 at 0749 by Susie Main RN DRESSING CHANGED
[2018-12-16] MEDS: hydrALAZINE HCL 25 MG TAB PO SCH ×3 (06:00→22:00)
--- NOTE | 2018-12-16 06:00 | NUR ---
CHEST TUBES CHEST TUBE DRESSING CHANGED CLEANED WITH G SWABS COVERED WITH GAUZE AND MEDIPORE
--- NOTE | 2018-12-16 06:15 | NUR ---
ACTIVITY - UP TO BEDSIDE CHAIR WITH X2 ASSIST. TOLERATES, DENIES ANY DIZZINESS, N/V. STEADY STEP WITH WALKER ASSIST WELL.
--- NOTE | 2018-12-16 06:30 | NUR ---
HYDRALAZINE HELD. PT. TO HAVE HD THIS A.M. SBP 110'S AT THIS TIME.
[2018-12-16] MEDS: MORPHINE SULFATE 4 MG/ML SYR/VIAL IV PRN ×2 (06:41→16:55)
[2018-12-16] MEDS: MICONAZOLE NITRATE 2 % VAGINAL CREAM 45 GM TOP SCH ×3 (06:50→22:19)
[2018-12-16] MEDS: IPRATROPIUM BROM 0.5 MG/2.5ML INH SOL NEB SCH ×5 (06:55→22:15)
[2018-12-16] MEDS: ALBUTEROL SULF 2.5 MG/0.5ML(0.5%) NEB SOLN NEB SCH ×5 (06:55→22:15)
[2018-12-16] MEDS: ACETYLCYSTEINE 10 %(100MG/ML) SOL 4ML NEB SCH ×3 (06:55→22:15)
[2018-12-16] MEDS ORDERED: SODIUM CHL 0.9% 1000 ML BAG XX ONE (07:00)
--- NOTE | 2018-12-16 07:30 | NUR ---
REPORT: REPORT RECEIVED FROM DRYING MACHINE OPERATOR RN TO RESUME CARE OF PT.
--- NOTE | 2018-12-16 07:33 | NUR ---
OUTPUT CHEST TUBES - 90 MLS URINE - ANURIC
[2018-12-16] MEDS: SEVELAMER 800 MG TAB PO SCH ×3 (08:00→20:00)
--- NOTE | 2018-12-16 08:00 | NUR ---
MD VISIT: DR. LYNCH IN AT BEDSIDE. UPDATED ON PT STATUS AND NEW ORDERS RECEIVED. AWARE THAT PT DOES HAVE ANXIETY AND NEW ORDERS RECEIVED.
--- NOTE | 2018-12-16 08:20 | NUR ---
DIALYSIS: STRIKE OPERATIONS OFFICER AT BEDSIDE.
--- NOTE | 2018-12-16 08:35 | NUR ---
MD VISIT: DR. GALLEGOS IN AT BEDSIDE. UPDATED ON PT STATUS AND AWARE OF CURRENT FINDINGS. SPOKE TO PT IN DETAIL AND FULLY UPDATED ON PT STATUS. NEW ORDERS RECEIVED. AWARE OF LOW HEMOGLOBIN AND OK TO TRANSFUSE 2 UNITS OF PRBCS IF OK WITH CARDIAC SURGERY. WILL CONTACT DR. ENGLAND.
--- NOTE | 2018-12-16 08:55 | NUR ---
MD CALL: CALLED DR. ENGLAND AND LEFT MESSAGE FOR UPDATED STATUS AT TIME AND POSSIBLE ORDERS FOR BLOOD TRANSFUSION. WAITING FOR CALL BACK.
--- NOTE | 2018-12-16 09:08 | NUR ---
BLOOD BANK: BLOOD BANK CALLED. 2 UNITS OF PRBC'S READY.
--- NOTE | 2018-12-16 09:11 | NUR ---
BLOOD BANK: BLOOD BANK CALLED. TYPE AND SCREEN AND NEED NEW ONE PLACED. NEW ORDERS PLACED FOR STAT TYPE AND SCREEN.
--- NOTE | 2018-12-16 10:02 | NUR ---
BLOOD BANK: CALLED BLOOD BANK. REPEATED THE TYPE AND SCREEN AND PENDING TO RELEASE THE BLOOD TO TRANSFUSE. WAITING FOR BLOOD BANK TO CALL WHEN PRBCS READY.
[2018-12-16] MEDS: CHLORHEXIDINE 0.12% ORAL rinse 473ML MT SCH ×2 (10:20→22:18)
[2018-12-16] MEDS: LORazepam 0.5 MG TAB PO PRN (10:50)
--- NOTE | 2018-12-16 10:50 | NUR ---
ANXIETY: PT HAVING ANXIETY AT TIME. ATTEMPTING TO GET OUT OF BED, ALERT AND ORIENTED X3 BUT STILL VOICING THAT SHE FEELS ANXIOUS AND WANTING TO WALK AROUND UNIT AT TIME. AWARE THAT PT IS ON HEMODIALYSIS AT TIME AND UNABLE TO WALK AROUND UNIT AT TIME BUT DID REQUEST MEDICATION TO BE GIVEN. MEDICATED WITH ATIVAN PER MD ORDERS.
--- NOTE | 2018-12-16 12:00 | NUR ---
LUNCH: PT GIVEN LUNCH TRAY AND TOLERATING WELL. EATING ONLY 25% BUT DID DRINK PROTEIN SHAKE.
--- NOTE | 2018-12-16 13:30 | NUR ---
ACTIVITY: PT HAS BEEN OUT OF BED THROUGHOUT DAY THUS FAR IN THE CARDIAC CHAIR. DID PAGE PHYSICAL THERAPY AND NOW AT BEDSIDE TO WALK PATIENT AROUND NURSING UNIT. AFTER PATIENT WAS CONNECTED TO BEDSIDE MONITOR, PORTABLE O2 AND CHEST TUBE SECURE, WALKED PATIENT AROUND NURSING UNIT AND ABLE TO DO 1 LAP WITH 4 WHEEL WALKER. PT OVERALL TOLERATED WELL.
[2018-12-16] MEDS: CARVEDILOL 3.125 MG TAB PO SCH ×2 (13:35→22:40)
[2018-12-16] MEDS: ASPirin-EC 81 mg tab PO SCH (13:36)
[2018-12-16] MEDS: NITROGLYCERIN 0.4MG/HR TOPICAL PATCH TD SCH (13:36)
[2018-12-16] MEDS: PANTOPRAZOLE 40 MG TAB PO SCH (13:36)
[2018-12-16] MEDS: ASCORBIC ACID 500 MG TAB PO SCH (13:36)
[2018-12-16] MEDS: Nepro With Carbsteady ButterPecan 8oz Carton PO SCH ×2 (13:37→20:00)
[2018-12-16] MEDS: NOREPINEPHRINE 8 MG/250ML KIT 250 ML IV SCH (13:54)
[2018-12-16] MEDS: SODIUM CHLORIDE 0.9% 500 ML IV SCH (13:54)
[2018-12-16] MEDS: PHENYLEPHRINE IV 250 ML IV SCH (13:54)
--- NOTE | 2018-12-16 14:00 | NUR ---
MD CONTACT: SPOKE TO DR. ARAUJO WHO WILL BE COVERING FOR MEDICAL CARE FRO DR. ENGLAND. FULLY AWARE OF ALL UPDATED STATUS AND NO NEW ORDERS RECEIVED AT TIME.
[2018-12-16] MEDS: HYDROcodone-ACET 5/325MG TAB PO PRN (14:40)
--- NOTE | 2018-12-16 14:55 | NUR ---
MD VISIT: DR. Alice VELAZQUEZ IN AT BEDSIDE. UPDATED ON PT STATUS AND AWARE OF CURRENT FINDINGS. ORDERS RECEIVED TO DISCONTINUE BIPAP TREATMENTS WITH BREATHING TREATMENTS. WILL CLARIFY WITH DR. RANKIN OR DR. ARAUJO WHO ARE COVERING DR. ENGLAND AT TIME.
--- NOTE | 2018-12-16 15:33 | NUR ---
COMFORT: PT SITTING UP IN BEDSIDE CHAIR WITH BIPAP IN PLACE FOR BREATHING TREATMENT.
--- NOTE | 2018-12-16 15:34 | NUR ---
MD VISIT: DR. RANKIN IN AT BEDSIDE. UPDATED ON PT STATUS IN FULL DETAIL AND NEW ORDERS RECEIVED. MD WOULD LIKE TO CONTINUE WITH THE BIPAP TREATMENTS FOR BREATHING TREATMENTS. AWARE THAT PT WAS ABLE TO WALK AROUND UNIT AND THAT CHEST TUBES ARE IN PLACE. PLAN TO CARRY OUT ANY ORDERS.
--- NOTE | 2018-12-16 16:00 | NUR ---
IV: INSERTED NEW 20G IV TO RIGHT AC ON 1ST ATTEMPT. PT TOLERATED WELL.
--- NOTE | 2018-12-16 16:08 | NUR ---
IV/CORDIS: REMOVED CORDIS TO LEFT IJ WITH CATHETER FULLY INTACT. PT OVERALL TOLERATED WELL.
--- NOTE | 2018-12-16 16:25 | NUR ---
ACTIVITY: PT HAS BEEN OUT OF BED THROUGHOUT DAY THUS FAR IN THE CARDIAC CHAIR. AFTER PATIENT WAS CONNECTED TO BEDSIDE MONITOR, PORTABLE O2 AND CHEST TUBE SECURE, WALKED PATIENT AROUND NURSING UNIT AND ABLE TO DO 1 LAP WITH 4 WHEEL WALKER. PT OVERALL TOLERATED WELL.
--- NOTE | 2018-12-16 16:45 | NUR ---
DRESSING: REMOVED DRESSING TO MID STERNAL INCISION. MIDSTERNAL INCISION IS WELL APPROXIMATED, NO DRAINAGE NOTED AND INTACT. PT TOLERATED WELL AND INCISION APPEARS TO BE ASYMPTOMATIC AT TIME.
--- NOTE | 2018-12-16 16:56 | NUR ---
COMFORT: PT GIVEN MORPHINE FOR PAIN OF 7/10 ON PAIN SCALE. AFTER PATIENT WAS WALKING WOUND UNIT, PATIENT REQUESTED TO GO BACK TO BED AND REST. PATIENT RESTING WITH CALL LIGHT IN REACH.
--- NOTE | 2018-12-16 17:06 | NUR ---
MD VISIT: DR. WATKINS IN AT BEDSIDE. UPDATED ON PT STATUS AND AWARE OF CURRENT FINDINGS. NO NEW ORDERS RECEIVED AT TIME.
--- NOTE | 2018-12-16 18:30 | NUR ---
COMFORT: PT RESTING AT TIME WITH NO COMPLAINTS OR DIFFICULTIES. CALL LIGHT IN REACH.
--- NOTE | 2018-12-16 18:45 | NUR ---
DINNER: DINNER TRAY PROVIDED. HOWEVER, PT ON BIPAP AT TIME FOR MN TREATMENT.
--- NOTE | 2018-12-16 19:25 | NUR ---
REPORT: REPORT GIVEN TO DELPHINE DEL REAL TO RESUME CARE OF PT.
[2018-12-16] MEDS ORDERED: traZODone HCL 50 MG TAB ONE (22:31)
[2018-12-16] MEDS: traZODone HCL 50 MG TAB PO SCH (22:37)
[2018-12-16] MEDS: PRAMIPEXOLE DIHYDROCHLORIDE MO 0.25 MG TAB PO SCH (22:40)
[2018-12-16] MEDS: ATORVASTATIN 20 MG TAB PO SCH (22:40)
[2018-12-17] VITALS (84 sets, daily range): BP systolic 67–159; BP diastolic 40–100
[2018-12-17] MEDS: LORazepam 2MG/ML-1ML VIAL IV PRN (00:40)
[2018-12-17] MEDS: MORPHINE SULFATE 4 MG/ML SYR/VIAL IV PRN ×2 (00:43→19:00)
[2018-12-17] MEDS: MILRINONE 20MG/100ML 100 ML IV SCH ×3 (00:54→20:34)
[2018-12-17] MEDS: NICARDIPINE 25MG/250ML BAG KIT 250 ML IV SCH (01:54)
--- NOTE | 2018-12-17 02:42 | NUR ---
PT REFUSED WALK Pt refused walk. Education provided and pt verbalized she will try to walk later. Addendum: 12/18/18 at 0539 by Cary Irby RN RN Incorrect time. Correct time is 2142 on 12/17/18.
[2018-12-17 04:00] LABS: Basophils # (auto) 0 uL; Basophils % (auto) 0.3 % (0.0-2.0); Eosinophils # (auto) 0 uL; Eosinophils % (auto) 0.3 % (0.0-7.0); Hematocrit 32.1 % (36.0-46.0); Hemoglobin 10.7 g/dL (12.2-16.2); Lymphocytes # (auto) 0.8 uL; Lymphocytes % (auto) 8.1 % (10.0-50.0); Mean Corpuscular Hemoglobin 30.8 pg (28.0-32.0); Mean Corpuscular Hgb Conc. 33.3 g/dL (32.0-36.0); Mean Corpuscular Volume 92.7 fL (80.0-100.0); Monocytes # (auto) 1.3 uL; Monocytes % (auto) 14.1 % (0.0-12.0); Neutrophils # (auto) 7.3 uL; Neutrophils % (auto) 77.2 % (37.0-80.0); Nucleated Red Blood Cells % 0.5 %; Platelet Count (auto) 162 10^3/uL (140-450); Red Blood Cells 3.46 10^6/uL (4.0-5.20); Red Cell Distribution Width 18.7 % (11.8-14.3); White Blood Cell 9.4 10^3/uL (4.4-10.8)
[2018-12-17 04:31] LABS: Albumin 3.3 g/dL (3.4-5.0); BUN/Creatinine Ratio 4.5; Bilirubin, Total 0.6 mg/dL (0.2-1.0); Calcium 8.1 mg/dL (8.5-10.1); Magnesium 2.9 mg/dL (1.6-2.6); Total Protein 6.7 g/dL (6.4-8.2)
[2018-12-17] MEDS: MICONAZOLE NITRATE 2 % VAGINAL CREAM 45 GM TOP SCH ×3 (06:00→21:12)
[2018-12-17] MEDS: hydrALAZINE HCL 25 MG TAB PO SCH ×3 (06:00→21:26)
[2018-12-17] MEDS: ACETYLCYSTEINE 10 %(100MG/ML) SOL 4ML NEB SCH ×3 (06:08→22:00)
[2018-12-17] MEDS: ALBUTEROL SULF 2.5 MG/0.5ML(0.5%) NEB SOLN NEB SCH ×5 (06:08→22:00)
[2018-12-17] MEDS: IPRATROPIUM BROM 0.5 MG/2.5ML INH SOL NEB SCH ×5 (06:08→22:00)
--- NOTE | 2018-12-17 06:15 | NUR ---
PT OOB , AMBULATED 1 LAP . BACK TO ROOM AND INTO CHAIR.
--- NOTE | 2018-12-17 07:35 | NUR ---
OPENING SHIFT NOTE Report received from Kyree DEL REAL, care assumed. Patient observed out of bed in chair. No distress noted. Patient is awake, alert, and oriented. Patient able to follow commands and stand with minimal assistance. Afebrile. Lungs clear anteriorly, patient on 2 l nasal cannula, denies shortness of breath. Bowel sounds hypoactive, patient denies passing gas at this time. See skin assessment for wound and incisions. Chest tubes x 2 noted, dressing is clean, dry, and intact. Connected to atrium. Patient instructed to call for assistance. Patient verbalized, call light within reach. Will continue to monitor.
--- NOTE | 2018-12-17 08:00 | NUR ---
IS Patient used incentive spirometer x 6, with best effort 500 ml. Patient educated on importance of using IS each hour x 10. Patient verbalized understanding.
[2018-12-17] MEDS: Nepro With Carbsteady ButterPecan 8oz Carton PO SCH ×3 (08:17→18:00)
[2018-12-17] MEDS: HYDROcodone-ACET 5/325MG TAB PO PRN (08:18)
[2018-12-17] MEDS: SEVELAMER 800 MG TAB PO SCH ×3 (08:18→18:49)
--- NOTE | 2018-12-17 09:00 | NUR ---
ACTIVITY: PT HAS BEEN OUT OF BED IN THE CARDIAC CHAIR. PATIENT WAS CONNECTED TO BEDSIDE MONITOR, PORTABLE O2 AND CHEST TUBE SECURE, WALKED PATIENT AROUND NURSING UNIT WITH PHYSICAL THERAPY AND ABLE TO DO 2 LAP WITH 4 WHEEL WALKER. PT OVERALL TOLERATED WELL. PATIENT HAD TO REST IN BETWEEN EACH LAP. NO BACK IN ROOM RESTING IN CARDIAC CHAIR.
[2018-12-17] MEDS: ASPirin-EC 81 mg tab PO SCH (09:46)
[2018-12-17] MEDS: PANTOPRAZOLE 40 MG TAB PO SCH (09:46)
[2018-12-17] MEDS: ASCORBIC ACID 500 MG TAB PO SCH (09:46)
[2018-12-17] MEDS: CHLORHEXIDINE 0.12% ORAL rinse 473ML MT SCH ×2 (09:56→21:13)
[2018-12-17] MEDS: CARVEDILOL 3.125 MG TAB PO SCH ×2 (10:00→21:13)
[2018-12-17] MEDS: NITROGLYCERIN 0.4MG/HR TOPICAL PATCH TD SCH (10:00)
--- NOTE | 2018-12-17 11:00 | NUR ---
ROUNDING NOTE Patient currently asleep on Bipap treatment. No distress noted at this time. Will continue to monitors.
--- NOTE | 2018-12-17 12:10 | NUR ---
ACTIVITY Patient ambulated to bedside commode for bowel movement attempt. Patient only passed gas. Patient then ambulated back to chair, call light within reach. No distress, will continue to monitor.
--- NOTE | 2018-12-17 12:30 | NUR ---
CARDIOLOGY ROUNDS at bedside assessing patient.
--- NOTE | 2018-12-17 13:06 | NUR ---
ELIMINATION Patient ambulated to bedside commode for bowel movement attempt. Patient only passed gas. Patient then ambulated back to chair, call light within reach. No distress, will continue to monitor.
[2018-12-17] MEDS: SODIUM CHLORIDE 0.9% 500 ML IV SCH (13:52)
--- NOTE | 2018-12-17 14:00 | NUR ---
ACTIVITY: PATIENT AMBULATED TO BEDSIDE COMMODE TO ATTEMPT BOWEL MOVEMENT WITHOUT SUCCESS. PATIENT WAS CONNECTED TO BEDSIDE MONITOR, PORTABLE O2 AND CHEST TUBE SECURE, WALKED PATIENT AROUND NURSING UNIT AND ABLE TO DO 1 LAP WITH 4 WHEEL WALKER. PT OVERALL TOLERATED WELL. PATIENT HAD TO REST IN BETWEEN EACH LAP. NO BACK IN ROOM RESTING IN CARDIAC CHAIR.
--- NOTE | 2018-12-17 14:13 | NUR ---
PAGED paged regarding medication for constipation. Patient requesting Miralax. Order obtained.
[2018-12-17] MEDS ORDERED: POLYETHYLENE GLYCOL 17 GM PWDR PO PRN (14:15)
--- NOTE | 2018-12-17 14:59 | NUR ---
Nutrition Follow-up Notes Wt.: 94.2 kg today. Pt's sitting up on bedside chair, on facial BiPAP mask, RT at bedside during rounds this morning. Pt had dialysis (12/14/18), no signs of distress noted earlier, currently on Cardiac: 2 gms Na, Low Chol, Low Fat diet with fair PO intake aeb 60% ave. consumed meals (x5) in last 2.5 days d/t pt refused, per nursing. Est. Needs ABW [id number] kcal (25-27 kcal/kgBW), 91-106 gms pro (1.2-1.4 gms/kgBW r/t pt on HD). Will continue to monitor pertinent labs and reassess nutrient need prn Labs: Gluc 134 H, Cl 97 L, BUN 35 H, Cr 7.73 H, Ca 8.1 L, ALT 6 L, Alb 3.3 L. Skin: Wallace scale 17, mod risk, pt's medial chest incision dry and intact per youth care professional. GI: Pt had 1 BM 12/13/18, with anuria per youth care professional. PES: Decreased nutrient needs r/t adiposity aeb pt`s high BMI of 35.8 kgm2 Altered nutrition related lab values r/t current/chronic medical condition aeb elev RFT hypocalcemia Will continue to monitor PO intake, skin status, pertinent labs and weight trend. F/u in 3 to 5 days. Rec.: 1.) Consider to resume Renal Standard, Cardiac: 2 gms Na, Low Chol, Low Fat diet. 2.) If Albumin level continues trending down, consider Prostat 1 pkt BID. 3.) Continue close supervision and feeding assistance prn during meals. 4.) Refer to RD for further nutrition education and weight monitoring upon discharged. 5.) Continue current plan of care.
--- NOTE | 2018-12-17 16:28 | NUR ---
ELIMINATION Patient ambulated to bedside commode with standby assistance. Patient had large, hard, formed bowel movement. Krysten-care performed, patient then ambulated back to bed. No distress noted, call light within reach. at bedside.
--- NOTE | 2018-12-17 17:00 | NUR ---
ELIMINATION Patient ambulated to bedside commode with standby assistance. Patient had large, soft, liquid bowel movement. Krysten-care performed, patient then ambulated back to chair. No distress noted, call light within reach. at bedside.
--- NOTE | 2018-12-17 17:17 | NUR ---
DRESSING: MIDSTERNAL INCISION IS WELL APPROXIMATED, NO DRAINAGE NOTED AND INTACT. INCISION APPEARS TO BE ASYMPTOMATIC AT TIME. CHEST TUBE SITES ARE INTACT, NO DRAINAGE. MIDSTERNAL AND CHEST TUBES SITES CLEANSED. NEW DRESSING APPLIED TO CHEST TUBE SITES. HARVEST AND ENDOSCOPIC SITES CLEANSED. KACI HOSE REMOVED.
--- NOTE | 2018-12-17 17:40 | NUR ---
ELIMINATION Patient ambulated to bedside commode with standby assistance. Patient had moderate, soft, liquid bowel movement. Krysten-care performed, patient then ambulated back to chair. No distress noted, call light within reach. at bedside.
--- NOTE | 2018-12-17 18:00 | NUR ---
IS Patient used incentive spirometer x 10, with best effort 1500 ml. Patient educated on importance of using IS each hour x 10. Patient verbalized understanding.
--- NOTE | 2018-12-17 18:28 | NUR ---
MD ROUNDS at bedside.
--- NOTE | 2018-12-17 19:00 | NUR ---
PAIN Patient complain of pain near chest tubes 04/15. Patient requesting morphine. Only 2 mg given due to low blood pressure trends earlier. Will reassess.
--- NOTE | 2018-12-17 19:13 | NUR ---
REPORT Report given to Cary DEL REAL, care endorsed.
--- NOTE | 2018-12-17 20:00 | NUR ---
OPENING SHIFT NOTE Received report from GT Hoff. Pt resting in chair with no signs of distress and VSS. Pt A&O x 4. Strong, equal bilateral hand grasps noted. See physical assessment intervention. Pt ambulated to bedside commode with standby assistance. Pt tolerated well. Pt instructed not to get off of commode without assistance and to use call light when in pt is done on commode. Pt verbalized understanding. Call light within reach. Will continue to monitor pt.
--- NOTE | 2018-12-17 20:44 | NUR ---
BACK TO BED/BM Pt had moderate, brown, liquid stool. Pt cleaned. Pt ambulated back into bed with standby assistance and without incident. Pt tolerated well.
[2018-12-17] MEDS: LORazepam 0.5 MG TAB PO PRN (20:47)
[2018-12-17] MEDS: ATORVASTATIN 20 MG TAB PO SCH (21:12)
[2018-12-17] MEDS: traZODone HCL 50 MG TAB PO SCH (21:12)
[2018-12-17] MEDS: PRAMIPEXOLE DIHYDROCHLORIDE MO 0.25 MG TAB PO SCH (21:13)
--- NOTE | 2018-12-17 22:08 | NUR ---
Respiratory note: PT SEEN FOR SCHEDULED MED NEB TX AT 2208. PT REFUSED HER TX AT THIS TIME, STATING THAT SHE WANTS TO WAIT AND TAKE IT IN THE MORNING. PT DID NOT APPEAR TO BE IN ANY DISTRESS, SHE WAS LYING IN BED WATCHING TV. BREATH SOUNDS WERE DIMINISHED BILATERALLY. HR 145 RR 18 POX 93% ON 2L NASAL CANNULA. PT AWARE TO CALL FOR RT IF ANY DISTRESS OCCURS. GT DAVIS MADE AWARE OF PT'S REFUSAL.
--- NOTE | 2018-12-17 22:14 | NUR ---
TACHYCARDIA Left message for Dr. Odom regarding tachycardia with HR 144-149 bpm. Awaiting return phone call.
--- NOTE | 2018-12-17 22:16 | NUR ---
ORDERS FOR TACHYCARDIA Updated Dr. Odom on pt condition and notified of asymptomatic tachycardia. Received telephone orders from Dr. Odom and verified via read-back.
[2018-12-17] MEDS ORDERED: CARVEDILOL 3.125 MG TAB PO ONE (22:30)
[2018-12-17] MEDS ORDERED: DIGOXIN 0.25 MG TAB PO ONE (22:30)
--- NOTE | 2018-12-17 23:00 | NUR ---
INCENTIVE SPIROMETER Pt tolerated IS x 4 with maximum volume of 750 ml. Education provided and pt encouraged to try again at a later time. Pt verbalized understanding.
--- NOTE | 2018-12-17 23:17 | NUR ---
UNRESOLVED TACHYCARDIA Dr. Odom notified of continued asymptomatic tachycardia. Awaiting telephone orders.
[2018-12-18] VITALS (45 sets, daily range): BP systolic 82–137; BP diastolic 46–92
[2018-12-18] MEDS: MORPHINE SULFATE 4 MG/ML SYR/VIAL IV PRN ×2 (00:19→16:37)
--- NOTE | 2018-12-18 01:48 | NUR ---
ADDITIONAL ORDERS FOR CONTINUED TACHYCARDIA Telephone orders received and verified via read-back for continued tachycardia.
[2018-12-18] MEDS ORDERED: CARVEDILOL 12.5 MG TAB PO ONE (02:00)
[2018-12-18] MEDS ORDERED: SODIUM CHLORIDE 0.9% 500 ML IV ONE (02:00)
--- NOTE | 2018-12-18 03:48 | NUR ---
CONVERTED TO SINUS RHYTHM Pt converted to SR with HR in the 90's.
--- NOTE | 2018-12-18 04:01 | NUR ---
OOB TO CHAIR Pt ambulated OOB to chair with standby assistance and without incident. Pt tolerated well and VSS.
[2018-12-18 04:31] LABS: Basophils # (auto) 0 uL; Basophils % (auto) 0.3 % (0.0-2.0); Eosinophils # (auto) 0.2 uL; Eosinophils % (auto) 1.5 % (0.0-7.0); Hematocrit 33.7 % (36.0-46.0); Lymphocytes # (auto) 0.7 uL; Lymphocytes % (auto) 6.5 % (10.0-50.0); Mean Corpuscular Hgb Conc. 32.8 g/dL (32.0-36.0); Mean Corpuscular Volume 94.4 fL (80.0-100.0); Monocytes # (auto) 1.2 uL; Monocytes % (auto) 10.8 % (0.0-12.0); Neutrophils # (auto) 8.9 uL; Neutrophils % (auto) 80.9 % (37.0-80.0); Nucleated Red Blood Cells % 0.6 %; Platelet Count (auto) 186 10^3/uL (140-450); Red Blood Cells 3.57 10^6/uL (4.0-5.20); Red Cell Distribution Width 17.6 % (11.8-14.3); White Blood Cell 10.9 10^3/uL (4.4-10.8)
[2018-12-18 04:43] LABS: BUN/Creatinine Ratio 5.1; Calcium 8.5 mg/dL (8.5-10.1); Potassium 4.1 mmol/L (3.5-5.1)
[2018-12-18] MEDS: IPRATROPIUM BROM 0.5 MG/2.5ML INH SOL NEB SCH ×5 (06:24→22:14)
[2018-12-18] MEDS: ACETYLCYSTEINE 10 %(100MG/ML) SOL 4ML NEB SCH ×3 (06:24→22:14)
[2018-12-18] MEDS: MILRINONE 20MG/100ML 100 ML IV SCH ×2 (06:24→16:14)
[2018-12-18] MEDS: ALBUTEROL SULF 2.5 MG/0.5ML(0.5%) NEB SOLN NEB SCH ×5 (06:24→22:14)
[2018-12-18] MEDS: hydrALAZINE HCL 25 MG TAB PO SCH ×3 (06:45→22:00)
--- NOTE | 2018-12-18 06:47 | NUR ---
PT ON BIPAP Pt receiving bipap treatment at this time and unable to ambulate.
--- NOTE | 2018-12-18 07:15 | NUR ---
REPORT Report given to GT Hoff. Care endorsed.
--- NOTE | 2018-12-18 07:35 | NUR ---
OPENING SHIFT NOTE Patient observed resting in chair asleep. Patient did not rest much last night. Vitals stable at this time. Call light within reach. Will continue to monitor.
[2018-12-18] MEDS: Nepro With Carbsteady ButterPecan 8oz Carton PO SCH ×3 (08:00→18:00)
--- NOTE | 2018-12-18 08:30 | NUR ---
BREAKFAST Patient awake, eating breakfast. Patient denies pain or distress at this time. Call light within reach. Patient instructed to call for assistance. Patient verbalized understanding.
[2018-12-18] MEDS: MICONAZOLE NITRATE 2 % VAGINAL CREAM 45 GM TOP SCH ×3 (08:51→22:47)
[2018-12-18] MEDS: ASCORBIC ACID 500 MG TAB PO SCH (09:59)
[2018-12-18] MEDS: LORazepam 0.5 MG TAB PO PRN (09:59)
[2018-12-18] MEDS: PANTOPRAZOLE 40 MG TAB PO SCH (09:59)
[2018-12-18] MEDS: ASPirin-EC 81 mg tab PO SCH (09:59)
[2018-12-18] MEDS: SEVELAMER 800 MG TAB PO SCH ×3 (09:59→19:29)
[2018-12-18] MEDS: NITROGLYCERIN 0.4MG/HR TOPICAL PATCH TD SCH (10:00)
--- NOTE | 2018-12-18 10:00 | NUR ---
ACTIVITY Patient ambulated with four wheel walker, portable monitor and oxygen 2 laps around nursing station. Patient had to rest every 1/2 lap due to left thigh/groin discomfort from harvest sites. Patient now resting in chair, call light within reach. Vital stable at this time.
[2018-12-18] MEDS: CARVEDILOL 12.5 MG TAB PO SCH ×2 (10:01→22:48)
[2018-12-18] MEDS: CHLORHEXIDINE 0.12% ORAL rinse 473ML MT SCH ×2 (10:12→22:47)
--- NOTE | 2018-12-18 10:12 | NUR ---
KACI HOSE APPLIED TO BILATERAL LOWER EXTREMITIES.
--- NOTE | 2018-12-18 11:14 | NUR ---
BIPAP TX Patient removed Bipap treatment. Patient educated on importance of treatments. Patient placed back on 2 L nasal cannula. Oxygen sat 98%, denies shortness of breath or distress.
[2018-12-18] MEDS: HYDROcodone-ACET 5/325MG TAB PO PRN ×2 (11:41→18:30)
--- NOTE | 2018-12-18 12:09 | NUR ---
ROUNDS at bedside assessing patient. He removed both chest tubes and pacer wires. Xeroform gauze and 4x4 applied and secured with foam tape. Patient tolerated well and was pre-pain medicated for procedure. Patient resting in bed, awaiting CXR. Call light within reach. Continue to monitor.
--- NOTE | 2018-12-18 12:34 | NUR ---
CXR MD aware of new chest xray post chest tube removal.
[2018-12-18] MEDS: SODIUM CHLORIDE 0.9% 500 ML IV SCH (13:54)
--- NOTE | 2018-12-18 14:47 | NUR ---
Respiratory note: INCENTIVE SPIROMETRY DONE WITH PT. BEST EFFORT 1000ml. PT ENCOURAGED TO KEEP PRACTICING I.S. 10X PER HOUR.
--- NOTE | 2018-12-18 15:20 | NUR ---
FAMILY Patient Luis at bedside.
--- NOTE | 2018-12-18 15:42 | NUR ---
ACTIVITY Patient ambulated with four wheel walker, portable monitor and oxygen 3 laps around nursing station. Patient had to rest every 1/2 lap due to left thigh/groin discomfort from harvest sites. Patient now resting in chair, call light within reach. Vital stable at this time.
--- NOTE | 2018-12-18 15:52 | NUR ---
NEPHROLOGY ROUNDS at bedside rounding. Orders received for hemodialysis tomorrow.
--- NOTE | 2018-12-18 16:45 | NUR ---
ACTIVITY Patient ambulated back to bed with standby assistance. Patient complaining of left rib and groin discomfort. Patient given prn pain medications. Patient now resting in bed, vitals stable, bed locked in lowest position with call light within reach. Patient instructed to call for assistance. Patient verbalized understanding. Continue to monitor.
--- NOTE | 2018-12-18 19:04 | NUR ---
REPORT Report given to Cary DEL REAL, care endorsed.
--- NOTE | 2018-12-18 19:45 | NUR ---
OPENING SHIFT NOTE Received report from GT Hoff. Pt resting in bed with no signs of distress and VSS. Pt A&O x 4. Strong, equal bilateral hand grasps noted. See physical assessment intervention. Pt instructed not to get out of bed without assistance and to use call light when in need of assistance. Pt verbalized understanding. Bed locked, in lowest position with top two side rails up, and call light within reach. All alarms on and audible. Will continue to monitor pt.
--- NOTE | 2018-12-18 20:44 | NUR ---
REPORT Report given to GT Jane. Care endorsed.
--- NOTE | 2018-12-18 20:55 | NUR ---
Received Pt from ICU to AD 263 Assumed care of patient from ICU, awake and alert. Breathing on O2NC 2LPM, even and nonlabored, No S/S of distress/SOB or pain. Saline lock x2 on right arm, sluggish on NS flush and due to D/S, will continue to monitor and remove if not working. Mid-line incision, EUSEBIO, CDI. Chest tube wound at upper abdomen covered with foam tape, CDI. [place] site on right knee and groin area, CDI, EUSEBIO. Bed in low position, call light with in reach, fall and safety precaution in place, all alarms are audible. Instructed on POC and to call for assist PRN, will continue to monitor for changes Q1hr and PRN.
[2018-12-18] MEDS: ATORVASTATIN 20 MG TAB PO SCH (22:47)
[2018-12-18] MEDS: traZODone HCL 50 MG TAB PO SCH (22:48)
[2018-12-18] MEDS: PRAMIPEXOLE DIHYDROCHLORIDE MO 0.25 MG TAB PO SCH (22:49)
--- NOTE | 2018-12-18 23:00 | NUR ---
Condition update Pt's v/s and condition stable. Mouth care done. Krysten area care done. Continue care.
[2018-12-19] VITALS (7 sets, daily range): BP systolic 96–128; BP diastolic 59–82
[2018-12-19] MEDS: LORazepam 0.5 MG TAB PO PRN ×2 (01:58→10:09)
--- NOTE | 2018-12-19 01:58 | NUR ---
ANXIETY: Pt anxious, requesting her Ativan to help her relax. Pt medicated w/ Ativan 1mg PO as per order. To continue to monitor pt.
[2018-12-19] MEDS: MILRINONE 20MG/100ML 100 ML IV SCH (02:04)
--- NOTE | 2018-12-19 02:04 | NUR ---
PAIN: Pt c/o pain at level 8/10 at incisional site. Pt requesting medication for pain. Pt medicated w/ Morphine 4mg IVP as per order. To continue to monitor pt.
[2018-12-19] MEDS: MORPHINE SULFATE 4 MG/ML SYR/VIAL IV PRN ×3 (02:05→14:02)
--- NOTE | 2018-12-19 02:53 | NUR ---
PAIN/IV: Pt received no relief from pain medication. Pt's IV noted to be leaking, infiltrated. IV Morphine not likely to have entered into pt's vein. IV removed and new 22 gauge IV inserted into pt's right shoulder area on first attempt. Pt's primary RN notified that Morphine wasted in pyxis. Primary R.N. to administer new dose of Morphine 4mg IV. To continue to monitor pt.
[2018-12-19] MEDS: ACETYLCYSTEINE 10 %(100MG/ML) SOL 4ML NEB SCH ×4 (05:40→22:14)
[2018-12-19] MEDS: ALBUTEROL SULF 2.5 MG/0.5ML(0.5%) NEB SOLN NEB SCH ×6 (05:40→22:13)
[2018-12-19] MEDS: IPRATROPIUM BROM 0.5 MG/2.5ML INH SOL NEB SCH ×6 (05:41→22:13)
[2018-12-19] MEDS: hydrALAZINE HCL 25 MG TAB PO SCH ×3 (06:00→22:00)
--- NOTE | 2018-12-19 06:27 | NUR ---
Paged Dr. Wood regarding pupils size unequal, right 5mm, Left 3mm, normal muscle strength BUE and BLE, negative slurred speech, good swallowing, no ALOC. Dr. Wood called back, acknowledged, will come in to check, no new Rx now.
--- NOTE | 2018-12-19 06:40 | NUR ---
Hemodialysis nurse at bedside.
[2018-12-19] MEDS: MICONAZOLE NITRATE 2 % VAGINAL CREAM 45 GM TOP SCH ×2 (06:51→16:56)
[2018-12-19] MEDS ORDERED: SODIUM CHL 0.9% 1000 ML BAG XX ONE (07:00)
--- NOTE | 2018-12-19 07:50 | NUR ---
Opening Shift Note Assumed care of patient, awake and alert. divine healer at bedside start dialysis this morning. No S/S of distress/SOB. Instructed on POC and to call for assist PRN, will continue to monitor for changes Q1hr and PRN. Patient stated that she has pain 8/10 at back and chest (wound), assessment done , patient made aware that her blood pressure still SBP 100-110 mmHg, she will wait until the dialysis done before medication for pain given.
--- NOTE | 2018-12-19 07:50 | NUR ---
Dr. Wood came and examined patient at this time, plan of care discussed with patient, plan to check MRA. Will continue to monitor and care.
[2018-12-19] MEDS: SEVELAMER 800 MG TAB PO SCH ×3 (08:37→18:00)
[2018-12-19] MEDS: Nepro With Carbsteady ButterPecan 8oz Carton PO SCH ×3 (08:38→18:00)
--- NOTE | 2018-12-19 09:00 | NUR ---
lunchroom worker came and talked to patient, she made aware that patient will need a new walker when she going home.
--- NOTE | 2018-12-19 09:31 | NUR ---
Respiratory note: PT REFUSED BREATHING TX AT THIS TIME. RN NOTIFIED. WILL TRY NEXT ROUNDS TO ENCOURAGE PT TO TAKE MEDNEB WITH BIPAP. PT IN NO DISTRESS AND RECEIVING DIALYSIS AT THIS TIME.
[2018-12-19] MEDS: CARVEDILOL 12.5 MG TAB PO SCH ×2 (10:00→23:10)
[2018-12-19] MEDS: NITROGLYCERIN 0.4MG/HR TOPICAL PATCH TD SCH (10:00)
[2018-12-19] MEDS: ASPirin-EC 81 mg tab PO SCH (10:09)
[2018-12-19] MEDS: CHLORHEXIDINE 0.12% ORAL rinse 473ML MT SCH ×2 (10:09→23:15)
[2018-12-19] MEDS: PANTOPRAZOLE 40 MG TAB PO SCH (10:09)
[2018-12-19] MEDS: ASCORBIC ACID 500 MG TAB PO SCH (10:09)
--- NOTE | 2018-12-19 10:30 | NUR ---
Hold Nitrodur and Coreg because patient still has dialysis running at this time and her blood pressure during dialysis SBP 95-110 mmHg. Will continue to monitor.
--- NOTE | 2018-12-19 11:01 | NUR ---
Dialysis fluid today is 1700 ml. BP 100/63, HR 95, RR 20, RR 18 O2 saturation. Will hold blood pressure medication this morning.
--- NOTE | 2018-12-19 11:15 | NUR ---
Patient had bowel movement at this time, perineal care provided. Then patient walked with wheelchair with PT, connect with monitor and oxygen. Patient needed to sit on the chair while walking in the hallway, tolerated well (walk for 1 round) then sitting on the chair.
--- NOTE | 2018-12-19 12:51 | NUR ---
Patient sitting on the chair and having Lunch. No complaining of pain or SOB. Addendum: 12/19/18 at 1252 by BEN RUBIO RN RN Call light within reach.
--- NOTE | 2018-12-19 13:45 | NUR ---
Patient complaining of pain, helping patient to go back to bed, will continue to monitor and check with pain management.
[2018-12-19] MEDS: SODIUM CHLORIDE 0.9% 500 ML IV SCH (13:54)
--- NOTE | 2018-12-19 13:55 | NUR ---
Respiratory note: PT IN NO DISTRESS. PT REFUSES MED NEB AT THIS TIME. RN NOTIFIED AND AWARE. CARDIAC RATE-93. RESP RATE-18, CLEAR BREATH SOUNDS BILATERALLY.
--- NOTE | 2018-12-19 14:09 | NUR ---
Respiratory note: TALKED TO RN ABOUT POSSIBLY DC THE BIPAP MED NEB TX. RN SAID SHE WILL INQUIRE ABOUT DC THE TX.
--- NOTE | 2018-12-19 14:30 | NUR ---
Dr. Odom came and seen patient at this time, no new order at this time, will continue of care, patient made aware.
--- NOTE | 2018-12-19 14:59 | NUR ---
Received call from Program Director Group Work Radha informing that patient has a bed at [facility]. Per Carlota, Dr Padron is not in the office at this time. Attempted to call Dr Padron via telephone number [phone], voicemail is full. Will try again.
[2018-12-19] MEDS ORDERED: HYDROcodone-ACET 5/325MG TAB PO PRN (15:00)
--- NOTE | 2018-12-19 15:00 | NUR ---
Pt. stated that she was unsure which SNF to go to so she chose [facility] as first choice, [place], then [facility]. No response from [facility]. [facility] responded and secured a bed for pt. Transportation will be provided by [facility] through [employer]. Addendum: 12/19/18 at 1611 by BERT CAMEJO Pt. completed dialysis today, she will continue dialysis with [facility]. Pt.'s chair time is on Wednesday, Wednesday, and Wednesday's at 8:15am. Pt.'s ETA is TBA upon D/C.
--- NOTE | 2018-12-19 15:47 | NUR ---
Spoke to Dr Padron over the phone, updated on patient's status. Informed patient had HD today, 1.7 L pulled out. Informed patient complained of moderate to severe LT groin, knee and leg pain after ambulation. Informed of LT lung atelectasis. Made aware bed is available for patient at [facility]. Per MD patient will not be discharge/ transfer today. Received telephone order for CBC, CMP and chest xray in am. Read back and verified. Will carry out.
[2018-12-19] MEDS: OXYCODONE W/ ACETAMINOPHEN 5/325MG TABLET PO PRN (16:55)
--- NOTE | 2018-12-19 18:00 | NUR ---
Patient is still sleeping, vital sign stable, refused to have dinner and medication at this time.
--- NOTE | 2018-12-19 18:50 | NUR ---
Dr. Domínguez came and seen patient at this time, received order for discontinue Monistat, will continue to monitor, will check Lab and CXR tomorrow. said patient may transfer to Tele if Cardi surgeon agree.
--- NOTE | 2018-12-19 19:30 | NUR ---
Opening Shift Note Assumed care of patient, sitting in bed, awake and alert, just finished her dinner. Breathing even and nonlabored, On O2NC 2LPN, No S/S of distress/SOB, encouraged deep breathing exercise and IS. Pt takes off her O2NC sometimes, O2sat on RA about 70's%, notified and educated Pt regarding breathing and O2 issue, Pt acknowledged. AV shunt on left upper arm, no bleeding or oozing observed, bruit and thrill positive. 22G saline lock at right upper chest, flushed well, CDI site. CABG wounds CDI. Wound on left thigh covered with non-adherent gauze, slightly peel off, will D/S later. Bed in low position, call light within reach, all alarms are audible, fall and safety precaution in place. Instructed on POC and to call for assist PRN, will continue to monitor for changes Q1hr and PRN.
--- NOTE | 2018-12-19 21:50 | NUR ---
Condition update Pt's condition and v/s stable, sleeping well on bed. Continue care.
--- NOTE | 2018-12-19 22:30 | NUR ---
OOB/ Ambulation Pt agreed to walk at this time after med nebulizer. Connected to portable O2 and monitor, Pt got OOB by self slowly, stable gait, denied lightheadedness. Pt walked 3 laps, then sat in the chair. Tolerated fairly, slightly SOB with exertion, increased O2NC to 4-6LPM while ambulation. Continue care.
--- NOTE | 2018-12-19 23:00 | NUR ---
Supplement Pt requested milk and snacks, provided milk, Nepro and crackers, independently had all snacks, tolerated well. Continue care.
[2018-12-19] MEDS: traZODone HCL 50 MG TAB PO SCH (23:07)
[2018-12-19] MEDS: PRAMIPEXOLE DIHYDROCHLORIDE MO 0.25 MG TAB PO SCH (23:08)
[2018-12-19] MEDS: ATORVASTATIN 20 MG TAB PO SCH (23:08)
--- NOTE | 2018-12-19 23:30 | NUR ---
Condition update IS 1000-1250ml [id number] while sitting n the chair, stated that she feel comfortable at this time, would want to sit a little longer. Continue care.
[2018-12-20] VITALS (7 sets, daily range): BP systolic 92–115; BP diastolic 56–77
--- NOTE | 2018-12-20 | NUR ---
Condition update Mouth care done by self after equipment provided. Pt went back to bed from chair, moved by self, stable gait. Mild SOB with exertion, no desaturation. Pt asked for Ativan and Percocet for pain, will administer as order, see EMAR for info. Continue care.
[2018-12-20] MEDS: LORazepam 0.5 MG TAB PO PRN ×2 (00:30→10:34)
[2018-12-20] MEDS: OXYCODONE W/ ACETAMINOPHEN 5/325MG TABLET PO PRN ×2 (00:30→11:41)
--- NOTE | 2018-12-20 00:40 | NUR ---
Wound d/s D/S of the wound on left thigh slightly peeled off. Wound is healed and dry. D/S done with CHG wipes at left thigh and left groin, covered left thigh wound with Optifoam gentle. Continue care.
--- NOTE | 2018-12-20 03:30 | NUR ---
Condition update Pt woke up by self at this time, requested to take off the stocking due to the tightness and uncomfortable. V/S and condition stable. Asked to have some juices, apple juice x2 provided per request, assisted with drinking. Continue care.
--- NOTE | 2018-12-20 04:45 | NUR ---
Delivery Nurse at bedside. Pt c/o itching and requested Benadryl through the comic artist. About 10mins later, this nurse came check the Pt about the itching, Pt already asleep, will continue care and check again when Pt wakes up.
[2018-12-20 05:43] LABS: Basophils # (auto) 0 uL; Basophils % (auto) 0.3 % (0.0-2.0); Eosinophils # (auto) 0.4 uL; Eosinophils % (auto) 4.2 % (0.0-7.0); Hematocrit 27.3 % (36.0-46.0); Lymphocytes # (auto) 0.8 uL; Lymphocytes % (auto) 9.4 % (10.0-50.0); Mean Corpuscular Hemoglobin 31.2 pg (28.0-32.0); Mean Corpuscular Volume 94.3 fL (80.0-100.0); Monocytes # (auto) 1.3 uL; Monocytes % (auto) 14.9 % (0.0-12.0); Neutrophils # (auto) 6.1 uL; Neutrophils % (auto) 71.2 % (37.0-80.0); Nucleated Red Blood Cells % 0.1 %; Platelet Count (auto) 226 10^3/uL (140-450); Red Blood Cells 2.89 10^6/uL (4.0-5.20); Red Cell Distribution Width 17.4 % (11.8-14.3); White Blood Cell 8.6 10^3/uL (4.4-10.8)
[2018-12-20 05:56] LABS: Chloride 101 mmol/L (98-107); Potassium 4.5 mmol/L (3.5-5.1); Sodium 139 mmol/L (136-145)
[2018-12-20] MEDS: hydrALAZINE HCL 25 MG TAB PO SCH (06:00)
[2018-12-20 06:03] LABS: Alanine Aminotransferase < 6 U/L (13-56); Albumin 2.8 g/dL (3.4-5.0); Alkaline Phosphatase 80 U/L (45-117); Anion Gap 8 (5-15); Aspartate Aminotransferase 22 U/L (15-37); BUN/Creatinine Ratio 5.1; Bilirubin, Total 0.8 mg/dL (0.2-1.0); Blood Urea Nitrogen 44 mg/dL (7-18); Calcium 8.4 mg/dL (8.5-10.1); Carbon Dioxide 30 mmol/L (21-32); GFR African American 6 mL/min; GFR Non-African American 5 mL/min; Glucose 124 mg/dL (74-106); Total Protein 6.6 g/dL (6.4-8.2)
--- NOTE | 2018-12-20 06:05 | NUR ---
Portable CXR at bedside.
[2018-12-20] MEDS: IPRATROPIUM BROM 0.5 MG/2.5ML INH SOL NEB SCH ×3 (06:33→14:39)
[2018-12-20] MEDS: ALBUTEROL SULF 2.5 MG/0.5ML(0.5%) NEB SOLN NEB SCH ×3 (06:33→14:39)
[2018-12-20] MEDS: ACETYLCYSTEINE 10 %(100MG/ML) SOL 4ML NEB SCH ×2 (06:33→14:40)
[2018-12-20] MEDS: Nepro With Carbsteady ButterPecan 8oz Carton PO SCH ×2 (08:00→12:00)
--- NOTE | 2018-12-20 08:15 | NUR ---
OPENING NOTE Received patient in bed resting with eyes closed easily arousable to verbal tactile. Patient alert and oriented X 4, speech appropriate, pupils reactive to light and equal, follows commands. Sinus rhythm in the 70's-80's, pulses palpable to upper/lower extremities with no edema observed. Nasal cannula at 2.0 liters sating in the high 90's, lungs clear. Abdomen soft, nontender and non distended with present bowel sounds and last bowel movement 12/19/2018. Anuric. Left upper arm AV shunt with present bruit/thrill. IV to the right upper chest 22g: hep-locked. [place] sites right knee/left knee and midline incision open to air. Patient denies any pain. Self care provided by patient. Will continue to monitor patient closely.
[2018-12-20] MEDS: SEVELAMER 800 MG TAB PO SCH ×2 (08:48→12:00)
--- NOTE | 2018-12-20 09:05 | NUR ---
MD Dr. Wood at bedside updated on patient condition with no new orders. MD spoke to patient regarding plan of care and questions/concerns answered by MD.
--- NOTE | 2018-12-20 09:55 | NUR ---
PHYSICAL THERAPY Physical therapy paged to come to room 263 per patient request. Patient would like to walk around unit. Awaiting for physical therapist to arrive.
[2018-12-20] MEDS: NITROGLYCERIN 0.4MG/HR TOPICAL PATCH TD SCH (10:00)
[2018-12-20] MEDS: CARVEDILOL 12.5 MG TAB PO SCH (10:00)
--- NOTE | 2018-12-20 10:05 | NUR ---
PHYSICAL THERAPY Physical therapist Edwin at bedside. Patient connected to portable color television console monitor /oxygen and was able to walk 2 rounds without incident. Will continue to monitor.
[2018-12-20] MEDS: CHLORHEXIDINE 0.12% ORAL rinse 473ML MT SCH (10:26)
[2018-12-20] MEDS: PANTOPRAZOLE 40 MG TAB PO SCH (10:29)
[2018-12-20] MEDS: ASCORBIC ACID 500 MG TAB PO SCH (10:29)
[2018-12-20] MEDS: ASPirin-EC 81 mg tab PO SCH (10:29)
--- NOTE | 2018-12-20 13:50 | NUR ---
RECEPTIONIST CLERK Spoke to Pia, skilled nursing case manager, regarding SNF placement at [facility] per Pia patient does have a bed.
--- NOTE | 2018-12-20 13:58 | NUR ---
Called and spoke to Dr. Pablo at [phone] regarding discharging patient to SNF, agrees. Will inform case specialist Pia to set up transportation.
--- NOTE | 2018-12-20 14:20 | NUR ---
PHYSICAL THERAPY Physical therapist Edwin paged per patient request for walk.
--- NOTE | 2018-12-20 14:30 | NUR ---
PHYSICAL THERAPY Physical therapist Edwin at bedside to walk patient. Patient walked one lap around unit without incident. Will continue to monitor patient.
[2018-12-20] MEDS: SODIUM CHLORIDE 0.9% 500 ML IV SCH (14:31)
--- NOTE | 2018-12-20 14:45 | NUR ---
MD Dr. Odom called and spoke to MD regarding home health and discharging to SNF. Dr. Odom states " Okay to discharge to SNF."
--- NOTE | 2018-12-20 15:02 | NUR ---
Pt. was accepted at [facility], bed #207 b1. Transportation will be arranged by [place] and will be picked between 5pm and 6pm by [employer] via wheelchair.
--- NOTE | 2018-12-20 15:50 | NUR ---
DISCHARGE INSTRUCTIONS/EDUCATION Donna Barone at bedside providing patient with discharge instructions/education regarding cardiac surgery. Patient verbalized understanding.
--- NOTE | 2018-12-20 17:45 | NUR ---
DISCHARGE [facility] with all belongs with patient. with patient. Vital signs stable.
--- NOTE | 2018-12-20 17:50 | NUR ---
REPORT Report given to Avis at [facility]
== END 2018-12-20 17:40 | DRG 233 ==
LOC: ER 16:08 → TELE 22:34 → TELE-WESTW 12-04 03:20 → ICU WEST 12-14 → DOU IN ICU 12-18 21:03
PROVIDERS: ADMIT Nurse Practitioner Family; ATTEND Internal Medicine
PROC: 5A1D70Z Performance of Urinary Filtration, Intermittent, Less than 6 Hours Per Day (ICD-10-PCS; 2018-12-05)
PROC: 4A023N7 Measurement of Cardiac Sampling and Pressure, Left Heart, Percutaneous Approach (ICD-10-PCS; 2018-12-07)
PROC: B2111ZZ Fluoroscopy of Multiple Coronary Arteries using Low Osmolar Contrast (ICD-10-PCS; 2018-12-07)
PROC: B2151ZZ Fluoroscopy of Left Heart using Low Osmolar Contrast (ICD-10-PCS; 2018-12-07)
PROC: 5A1D70Z Performance of Urinary Filtration, Intermittent, Less than 6 Hours Per Day (ICD-10-PCS; 2018-12-07)
PROC: 3E063GC Introduction of Other Therapeutic Substance into Central Artery, Percutaneous Approach (ICD-10-PCS; 2018-12-08)
PROC: 5A1D70Z Performance of Urinary Filtration, Intermittent, Less than 6 Hours Per Day (ICD-10-PCS; 2018-12-09)
PROC: 5A1D70Z Performance of Urinary Filtration, Intermittent, Less than 6 Hours Per Day (ICD-10-PCS; 2018-12-12)
PROC: 021209W Bypass Coronary Artery, Three Arteries from Aorta with Autologous Venous Tissue, Open Approach (ICD-10-PCS; 2018-12-14)
PROC: 02100Z9 Bypass Coronary Artery, One Artery from Left Internal Mammary, Open Approach (ICD-10-PCS; 2018-12-14)
PROC: 06BP0ZZ Excision of Right Saphenous Vein, Open Approach (ICD-10-PCS; 2018-12-14)
PROC: 5A1221Z Performance of Cardiac Output, Continuous (ICD-10-PCS; 2018-12-14)
PROC: 5A1D70Z Performance of Urinary Filtration, Intermittent, Less than 6 Hours Per Day (ICD-10-PCS; 2018-12-14)
PROC: 30233N1 Transfusion of Nonautologous Red Blood Cells into Peripheral Vein, Percutaneous Approach (ICD-10-PCS; principal; 2018-12-14 06:08)
PROC: 5A09357 Assistance with Respiratory Ventilation, Less than 24 Consecutive Hours, Continuous Positive Airway Pressure (ICD-10-PCS; 2018-12-15)
PROC: 5A1D70Z Performance of Urinary Filtration, Intermittent, Less than 6 Hours Per Day (ICD-10-PCS; 2018-12-16)
PROC: 5A09357 Assistance with Respiratory Ventilation, Less than 24 Consecutive Hours, Continuous Positive Airway Pressure (ICD-10-PCS; 2018-12-16)
PROC: 5A09357 Assistance with Respiratory Ventilation, Less than 24 Consecutive Hours, Continuous Positive Airway Pressure (ICD-10-PCS; 2018-12-17)
PROC: 5A09357 Assistance with Respiratory Ventilation, Less than 24 Consecutive Hours, Continuous Positive Airway Pressure (ICD-10-PCS; 2018-12-18)
PROC: 5A1D70Z Performance of Urinary Filtration, Intermittent, Less than 6 Hours Per Day (ICD-10-PCS; 2018-12-19)
PROC: 5A09357 Assistance with Respiratory Ventilation, Less than 24 Consecutive Hours, Continuous Positive Airway Pressure (ICD-10-PCS; 2018-12-19)
DX: I25.110 Atherosclerotic heart disease of native coronary artery with unstable angina pectoris (principal); I50.31 Acute diastolic (congestive) heart failure; R40.20 Unspecified coma; J18.9 Pneumonia, unspecified organism; N18.6 End stage renal disease; G92 Toxic encephalopathy; J96.00 Acute respiratory failure, unspecified whether with hypoxia or hypercapnia; I13.2 Hypertensive heart and chronic kidney disease with heart failure and with stage 5 chronic kidney disease, or end stage renal disease; J44.1 Chronic obstructive pulmonary disease with (acute) exacerbation; N25.81 Secondary hyperparathyroidism of renal origin; Z68.35 Body mass index [BMI] 35.0-35.9, adult; E11.22 Type 2 diabetes mellitus with diabetic chronic kidney disease; E87.5 Hyperkalemia; Z99.2 Dependence on renal dialysis; D63.8 Anemia in other chronic diseases classified elsewhere; E11.42 Type 2 diabetes mellitus with diabetic polyneuropathy; F41.9 Anxiety disorder, unspecified; Z95.5 Presence of coronary angioplasty implant and graft; I25.2 Old myocardial infarction; F31.9 Bipolar disorder, unspecified; H81.10 Benign paroxysmal vertigo, unspecified ear; G25.81 Restless legs syndrome; M19.90 Unspecified osteoarthritis, unspecified site; Z79.899 Other long term (current) drug therapy; Z86.73 Personal history of transient ischemic attack (TIA), and cerebral infarction without residual deficits
CPT/HCPCS: 10022; 36415; 36600; 70551; 71045; 71046; 76881; 76942; 78452; 80048; 80053; 80061; 82728; 82805; 82962; 83036; 83540; 83550; 83735; 83880; 84100; 84132; 84443; 84484; 85007; 85014; 85018; 85025; 85027; 85379; 85576; 85610; 85730; 86850; 86900; 86901; 86920; 87040; 87070; 87081; 87205; 90935; 93005; 93017; 93306; 93458; 93886; 93970; 94002; 94003; 94640; 94660; 94761; 96361; 96365; 96375; 97116; 97163; 97530; 99152; A4223; A6257; G0378; J0153; J0690; J0696; J1100; J1642; J1644; J1815; J2250; J2405; J2440; J2704; J7060; P9047; Q9967

== ENCOUNTER 2018-12-27 12:19 | Emergency (ER) | payer MEDICARE, OTHER ==
[~2018-12-27] VITALS: Ht 154.9 cm; Wt 92.5 kg
[~2018-12-27 12:19] MED LIST: ASP81EC PO; TICA90TA PO
[2018-12-27 12:35] VITALS: BP 131/71
== END 2018-12-27 13:56 | disposition home or self-care (01) ==
LOC: ER 12:19
DX: F41.9 Anxiety disorder, unspecified (principal); I13.2 Hypertensive heart and chronic kidney disease with heart failure and with stage 5 chronic kidney disease, or end stage renal disease; N18.6 End stage renal disease; I50.9 Heart failure, unspecified; J44.9 Chronic obstructive pulmonary disease, unspecified; E78.5 Hyperlipidemia, unspecified; I25.2 Old myocardial infarction; I48.91 Unspecified atrial fibrillation; Z76.0 Encounter for issue of repeat prescription; Z86.73 Personal history of transient ischemic attack (TIA), and cerebral infarction without residual deficits; Z95.1 Presence of aortocoronary bypass graft

== ENCOUNTER 2018-12-31 17:51 | Emergency (ER) | payer MEDICARE, OTHER ==
[~2018-12-31] VITALS: Ht 165.1 cm; Wt 90.7 kg
[2018-12-31 19:02] LABS: Potassium 3.8 mmol/L (3.5-5.1)
[2018-12-31 19:04] LABS: Albumin 3.4 g/dL (3.4-5.0); Calcium 9.3 mg/dL (8.5-10.1); Magnesium 2.4 mg/dL (1.6-2.6)
[2018-12-31 19:10] LABS: BUN/Creatinine Ratio 2.8; Bilirubin, Total 0.9 mg/dL (0.2-1.0); Total Protein 8.7 g/dL (6.4-8.2)
[2018-12-31 19:13] LABS: Basophils # (auto) 0.1 uL; Eosinophils # (auto) 0.2 uL; Eosinophils % (auto) 3.2 % (0.0-7.0); Hematocrit 33.5 % (36.0-46.0); Lymphocytes # (auto) 0.9 uL; Lymphocytes % (auto) 13.5 % (10.0-50.0); Mean Corpuscular Hemoglobin 31.5 pg (28.0-32.0); Mean Corpuscular Hgb Conc. 32.8 g/dL (32.0-36.0); Monocytes # (auto) 0.7 uL; Monocytes % (auto) 10.9 % (0.0-12.0); Neutrophils # (auto) 4.5 uL; Neutrophils % (auto) 71.4 % (37.0-80.0); Nucleated Red Blood Cells % 0.3 %; Platelet Count (auto) 390 10^3/uL (140-450); Red Blood Cells 3.49 10^6/uL (4.0-5.20); Red Cell Distribution Width 17.9 % (11.8-14.3); White Blood Cell 6.3 10^3/uL (4.4-10.8)
[2018-12-31 20:53] VITALS: BP 132/83
[2018-12-31] MEDS ORDERED: LORazepam 0.5 MG TAB PO ONE (22:00)
== END 2018-12-31 23:02 | disposition home or self-care (01) ==
LOC: EDBD 17:51 → ER 17:53
DX: G89.4 Chronic pain syndrome (principal); R07.89 Other chest pain; F41.9 Anxiety disorder, unspecified; I11.0 Hypertensive heart disease with heart failure; I50.9 Heart failure, unspecified; I25.10 Atherosclerotic heart disease of native coronary artery without angina pectoris; J44.9 Chronic obstructive pulmonary disease, unspecified; I48.91 Unspecified atrial fibrillation; E78.00 Pure hypercholesterolemia, unspecified; I25.2 Old myocardial infarction; Z95.1 Presence of aortocoronary bypass graft; Z86.73 Personal history of transient ischemic attack (TIA), and cerebral infarction without residual deficits; Z79.82 Long term (current) use of aspirin; Z79.899 Other long term (current) drug therapy
CPT/HCPCS: 36415; 71250; 80053; 82550; 83735; 84484; 85025; 93005

== ENCOUNTER 2019-01-01 13:07 | Emergency (ER) | payer MEDICARE, OTHER ==
[~2019-01-01] VITALS: Ht 172.7 cm; Wt 81.6 kg
[2019-01-01] MEDS ORDERED: ASPirin 81 mg TAB PO ONE (13:45)
[2019-01-01 14:21] LABS: Basophils # (auto) 0.1 uL; Basophils % (auto) 1.1 % (0.0-2.0); Eosinophils # (auto) 0.1 uL; Eosinophils % (auto) 1.8 % (0.0-7.0); Hematocrit 28.8 % (36.0-46.0); Hemoglobin 9.4 g/dL (12.2-16.2); Lymphocytes # (auto) 1.1 uL; Lymphocytes % (auto) 15.3 % (10.0-50.0); Mean Corpuscular Hemoglobin 31.2 pg (28.0-32.0); Mean Corpuscular Hgb Conc. 32.7 g/dL (32.0-36.0); Mean Corpuscular Volume 95.3 fL (80.0-100.0); Monocytes % (auto) 13.8 % (0.0-12.0); Neutrophils # (auto) 4.9 uL; Nucleated Red Blood Cells % 0.1 %; Platelet Count (auto) 414 10^3/uL (140-450); Red Blood Cells 3.02 10^6/uL (4.0-5.20); Red Cell Distribution Width 18.4 % (11.8-14.3); White Blood Cell 7.3 10^3/uL (4.4-10.8)
[2019-01-01 14:38] LABS: Albumin 3.1 g/dL (3.4-5.0); Calcium 8.7 mg/dL (8.5-10.1); Magnesium 2.4 mg/dL (1.6-2.6)
[2019-01-01 14:39] LABS: INR 1.14 (0.9-1.15); Partial Thromboplastin Time 34.5 sec (23.78-33.04); Prothrombin Time 12.1 sec (9.27-12.13)
[2019-01-01 14:43] LABS: BUN/Creatinine Ratio 2.8; Total Protein 8.1 g/dL (6.4-8.2)
[2019-01-01] MEDS ORDERED: LORazepam 2MG/ML-1ML VIAL IV ONE (15:45)
[2019-01-01 16:18] VITALS: BP 137/77
== END 2019-01-01 16:58 | disposition home or self-care (01) ==
LOC: ER 13:07 → EDBD 13:07 → ER 16:51
DX: R07.89 Other chest pain (principal); I25.709 Atherosclerosis of coronary artery bypass graft(s), unspecified, with unspecified angina pectoris; I48.91 Unspecified atrial fibrillation; J44.9 Chronic obstructive pulmonary disease, unspecified; E78.5 Hyperlipidemia, unspecified; I11.0 Hypertensive heart disease with heart failure; I50.9 Heart failure, unspecified; I25.2 Old myocardial infarction; E07.9 Disorder of thyroid, unspecified; Z98.61 Coronary angioplasty status; Z79.82 Long term (current) use of aspirin; Z79.899 Other long term (current) drug therapy; Z90.710 Acquired absence of both cervix and uterus; Z95.1 Presence of aortocoronary bypass graft
CPT/HCPCS: 36415; 71045; 80053; 83735; 83880; 84484; 85025; 85610; 85730; 93005; 94761; 96374; 99284; J2060

== ENCOUNTER 2019-01-03 10:52 | Emergency (ER) | payer MEDICARE, OTHER ==
[~2019-01-03] VITALS: Ht 165.1 cm; Wt 90.7 kg
[2019-01-03 12:34] LABS: INR 1.18 (0.9-1.15); Partial Thromboplastin Time 27.8 sec (23.78-33.04); Prothrombin Time 12.5 sec (9.27-12.13)
[2019-01-03 12:37] LABS: Alanine Aminotransferase 16 U/L (16-61); Albumin 3.3 g/dL (3.4-5.0); Anion Gap 14 (5-15); Aspartate Aminotransferase 84 U/L (15-37); Blood Urea Nitrogen 54 mg/dL (7-18); Calcium 8.9 mg/dL (8.5-10.1); Carbon Dioxide 25 mmol/L (21-32); Chloride 100 mmol/L (98-107); GFR African American 3 mL/min; GFR Non-African American 3 mL/min; Glucose 95 mg/dL (74-106); Magnesium 2.6 mg/dL (1.6-2.6); Potassium 5.3 mmol/L (3.5-5.1); Sodium 139 mmol/L (136-145)
[2019-01-03 12:40] LABS: Alkaline Phosphatase 88 U/L (45-117); Bilirubin, Total 0.8 mg/dL (0.2-1.0); Total Protein 8.3 g/dL (6.4-8.2)
[2019-01-03] MEDS ORDERED: ALBUTEROL SULF 2.5 MG/0.5ML(0.5%) NEB SOLN NEB STA (13:26)
[2019-01-03] MEDS ORDERED: ENOXAPARIN SOD 100 MG/1 ML SYRINGE SC ONE (13:30)
[2019-01-03] MEDS ORDERED: InsuLIN REG 1unit/0.01ml Soln (100units/ml) IV ONE (13:30)
[2019-01-03] MEDS ORDERED: CALCIUM GLUC 4.65meq/50ml D5AE 50 ML IV ONE (13:30)
[2019-01-03] MEDS ORDERED: DEXTROSE (50%) 50ML SYRG IV ONE (13:30)
[2019-01-03] MEDS ORDERED: SODIUM BICARBONATE 8.4% INJ 50ML SYRINGE IV ONE (13:30)
[2019-01-03 13:41] LABS: Basophils # (auto) 0.1 uL; Basophils % (auto) 1.3 % (0.0-2.0); Eosinophils # (auto) 0.1 uL; Mean Corpuscular Volume 97.4 fL (80.0-100.0); Monocytes # (auto) 0.8 uL
[2019-01-03 13:44] LABS: Hematocrit 33.9 % (36.0-46.0); Hemoglobin 11.1 g/dL (12.2-16.2); Lymphocytes % (auto) 13.7 % (10.0-50.0); Mean Corpuscular Hemoglobin 31.9 pg (28.0-32.0); Mean Corpuscular Hgb Conc. 32.8 g/dL (32.0-36.0); Monocytes % (auto) 11.1 % (0.0-12.0); Neutrophils # (auto) 5.1 uL; Neutrophils % (auto) 71.9 % (37.0-80.0); Nucleated Red Blood Cells % 0.2 %; Platelet Count (auto) 458 10^3/uL (140-450); Red Blood Cells 3.48 10^6/uL (4.0-5.20); Red Cell Distribution Width 18.4 % (11.8-14.3); White Blood Cell 7.1 10^3/uL (4.4-10.8)
[2019-01-03] MEDS ORDERED: LORazepam 2MG/ML-1ML VIAL ONE (16:07)
[2019-01-03] MEDS ORDERED: LORazepam 2MG/ML-1ML VIAL IV ONE (16:15)
[2019-01-03 18:02] VITALS: BP 137/83
== END 2019-01-03 19:11 | disposition home or self-care (01) ==
LOC: EDSEX 10:52 → ER 10:52 → EDUNIT# 10:52 → ER 19:11
DX: I24.9 Acute ischemic heart disease, unspecified (principal); E87.5 Hyperkalemia; R79.89 Other specified abnormal findings of blood chemistry; I12.0 Hypertensive chronic kidney disease with stage 5 chronic kidney disease or end stage renal disease; N18.6 End stage renal disease; J44.9 Chronic obstructive pulmonary disease, unspecified; Z95.1 Presence of aortocoronary bypass graft; Z98.61 Coronary angioplasty status; Z79.82 Long term (current) use of aspirin; Z79.899 Other long term (current) drug therapy; Z99.2 Dependence on renal dialysis
CPT/HCPCS: 36415; 71046; 80053; 82962; 83735; 83880; 84132; 84484; 85025; 85610; 85730; 93005; 94644; 96365; 96366; 96372; 96375; 99285; J0610; J1650; J1815; J2060; J7042; J7611

== ENCOUNTER 2019-01-10 19:29 | Emergency (ER) | payer MEDICARE ==
[~2019-01-10] VITALS: Ht 165.1 cm; Wt 90.7 kg
[2019-01-11 01:35] VITALS: BP 157/88
== END 2019-01-11 02:35 | disposition home or self-care (01) ==
LOC: ER 19:29
DX: S16.1XXA Strain of muscle, fascia and tendon at neck level, initial encounter (principal); S20.219A Contusion of unspecified front wall of thorax, initial encounter; I12.0 Hypertensive chronic kidney disease with stage 5 chronic kidney disease or end stage renal disease; N18.6 End stage renal disease; J44.9 Chronic obstructive pulmonary disease, unspecified; Z95.1 Presence of aortocoronary bypass graft; Z79.82 Long term (current) use of aspirin; Z79.899 Other long term (current) drug therapy; W18.39XA Other fall on same level, initial encounter; Y93.89 Activity, other specified; Y92.89 Other specified places as the place of occurrence of the external cause; Y99.8 Other external cause status
CPT/HCPCS: 70450; 71046; 72125; 93005

== ENCOUNTER → 2019-03-06 | Outpatient (CLI) | payer MEDICARE, OTHER | END | disposition home or self-care (01) | LOC: Rad HDHVI 14:46 | PROVIDERS: ATTEND Internal Medicine Cardiovascular Disease | DX: I07.1 Rheumatic tricuspid insufficiency (principal); I13.2 Hypertensive heart and chronic kidney disease with heart failure and with stage 5 chronic kidney disease, or end stage renal disease; N18.6 End stage renal disease; I50.23 Acute on chronic systolic (congestive) heart failure; E78.5 Hyperlipidemia, unspecified; I25.2 Old myocardial infarction; I27.20 Pulmonary hypertension, unspecified | CPT/HCPCS: 93306 ==

== ENCOUNTER 2019-03-13 18:31 | Emergency (ER) | payer MEDICARE, OTHER ==
[~2019-03-13] VITALS: Ht 170.2 cm; Wt 72.6 kg
[2019-03-13 20:09] LABS: Basophils # (auto) 0 uL; Basophils % (auto) 0.6 % (0.0-2.0); Eosinophils # (auto) 0.2 uL; Eosinophils % (auto) 2.7 % (0.0-7.0); Hemoglobin 12.7 g/dL (12.2-16.2); Lymphocytes # (auto) 1.2 uL; Lymphocytes % (auto) 19.7 % (10.0-50.0); Mean Corpuscular Hemoglobin 30.9 pg (28.0-32.0); Mean Corpuscular Hgb Conc. 32.6 g/dL (32.0-36.0); Mean Corpuscular Volume 94.7 fL (80.0-100.0); Monocytes # (auto) 0.7 uL; Monocytes % (auto) 11.2 % (0.0-12.0); Neutrophils % (auto) 65.8 % (37.0-80.0); Nucleated Red Blood Cells % 0.1 %; Platelet Count (auto) 339 10^3/uL (140-450); Red Blood Cells 4.11 10^6/uL (4.0-5.20); Red Cell Distribution Width 16.1 % (11.8-14.3); White Blood Cell 6.1 10^3/uL (4.4-10.8)
[2019-03-13 20:10] LABS: BUN/Creatinine Ratio 2.7; Calcium 9.1 mg/dL (8.5-10.1); Magnesium 2.6 mg/dL (1.6-2.6)
[2019-03-13 20:16] LABS: Bilirubin, Total 0.6 mg/dL (0.2-1.0); Total Protein 8.6 g/dL (6.4-8.2)
[2019-03-13] MEDS ORDERED: PROMETHAZINE W/CODEINE 5 ML ORAL SYRUP PO ONE (23:15)
[2019-03-14 00:49] VITALS: BP 113/80
== END 2019-03-14 00:54 | disposition home or self-care (01) ==
LOC: ER 18:31
DX: R05 Cough (principal); I13.2 Hypertensive heart and chronic kidney disease with heart failure and with stage 5 chronic kidney disease, or end stage renal disease; N18.6 End stage renal disease; I50.9 Heart failure, unspecified; J44.9 Chronic obstructive pulmonary disease, unspecified; I25.2 Old myocardial infarction; E78.5 Hyperlipidemia, unspecified; Z95.1 Presence of aortocoronary bypass graft; Z98.61 Coronary angioplasty status
CPT/HCPCS: 36415; 71046; 80053; 83735; 83880; 84484; 85025; 93005

== ENCOUNTER → 2019-04-14 | Outpatient (CLI) | payer MEDICARE, OTHER ==
[~2019-04-14] VITALS: Ht 165.1 cm; Wt 79.8 kg
[~2019-04-14] MED LIST changes: +ADENOSINE 67 MG in GIVE UN-DILUTED 0 ML IV ONE; +ADENOSINE 90 MG/30 ML INJ IV ONE
== END | disposition home or self-care (01) ==
LOC: Rad HDHVI 07:54
PROVIDERS: ATTEND Internal Medicine Cardiovascular Disease
DX: I25.5 Ischemic cardiomyopathy (principal); I11.0 Hypertensive heart disease with heart failure; I50.43 Acute on chronic combined systolic (congestive) and diastolic (congestive) heart failure
CPT/HCPCS: 78452; 93005; 96374; 96375; A9500; J0153

== ENCOUNTER → 2019-06-23 | Outpatient (CLI) | payer MEDICARE, OTHER ==
[~2019-06-23] MED LIST changes: -ADENOSINE 67 MG in GIVE UN-DILUTED 0 ML IV ONE; -ADENOSINE 90 MG/30 ML INJ IV ONE
[2019-06-23 16:07] LABS: Potassium 3.8 mmol/L (3.5-5.1)
[2019-06-23 16:08] LABS: BUN/Creatinine Ratio 2.5; Calcium 8.9 mg/dL (8.5-10.1); Uric Acid 1.8 mg/dL (2.6-6.0)
== END | disposition home or self-care (01) ==
LOC: Rad HDHVI 12:01
PROVIDERS: ATTEND Internal Medicine
DX: M19.031 Primary osteoarthritis, right wrist (principal); M85.88 Other specified disorders of bone density and structure, other site; M10.9 Gout, unspecified
CPT/HCPCS: 36415; 73110; 80048; 84550

== ENCOUNTER → 2019-11-01 | Outpatient (CLI) | payer MEDICARE, OTHER | END | disposition home or self-care (01) | LOC: Rad HDHVI 13:18 | PROVIDERS: ATTEND Internal Medicine Cardiovascular Disease | DX: R07.89 Other chest pain (principal); I10 Essential (primary) hypertension; R42 Dizziness and giddiness | CPT/HCPCS: 93306 ==

== ENCOUNTER → 2019-11-02 | Outpatient (CLI) | payer MEDICARE ==
[~2019-11-02] VITALS: Ht 166.4 cm; Wt 78.9 kg
[~2019-11-02] MED LIST changes: +ADENOSINE 66 MG in GIVE UN-DILUTED 0 ML IV ONE; +ADENOSINE 90 MG/30 ML INJ IV ONE
== END | disposition home or self-care (01) ==
LOC: Rad HDHVI 13:49
PROVIDERS: ATTEND Internal Medicine Cardiovascular Disease
DX: M54.5 Low back pain (principal)
CPT/HCPCS: 78452; 93005; 96374; 96375; A9500; J0153

== ENCOUNTER 2020-05-24 20:43 | Inpatient (IN) | payer MEDICARE, OTHER ==
[~2020-05-24] VITALS: Ht 162.6 cm; Wt 78.2 kg
[~2020-05-24 20:43] MED LIST changes: -ADENOSINE 66 MG in GIVE UN-DILUTED 0 ML IV ONE; -ADENOSINE 90 MG/30 ML INJ IV ONE; -ASP81EC PO; +ASPI-394 PO
[2020-05-24 22:45] LABS: Calcium 9.5 mg/dL (8.5-10.1); Potassium 4.2 mmol/L (3.5-5.1)
[2020-05-24 22:50] LABS: Basophils # (auto) 0.1 10 ^3/uL (0-0.2); Basophils % (auto) 0.7 % (0.0-2.0); Eosinophils # (auto) 0.1 10 ^3/uL (0-0.8); Eosinophils % (auto) 1.2 % (0.0-7.0); Hematocrit 40.9 % (36.0-46.0); Hemoglobin 13.8 g/dL (12.2-16.2); Lymphocytes # (auto) 1.4 10 ^3/uL (0.4-5.4); Lymphocytes % (auto) 21.1 % (10.0-50.0); Mean Corpuscular Hemoglobin 32.1 pg (28.0-32.0); Mean Corpuscular Hgb Conc. 33.7 g/dL (32.0-36.0); Mean Corpuscular Volume 95.3 fL (80.0-100.0); Monocytes % (auto) 15.4 % (0.0-12.0); Neutrophils # (auto) 4.2 10 ^3/uL (1.6-8.6); Neutrophils % (auto) 61.6 % (37.0-80.0); Platelet Count (auto) 266 10^3/uL (140-450); Red Blood Cells 4.29 10^6/uL (4.0-5.20); Red Cell Distribution Width 17.2 % (11.8-14.3); White Blood Cell 6.8 10^3/uL (4.4-10.8)
[2020-05-24 22:53] LABS: Albumin 4.1 g/dL (3.4-5.0); Magnesium 2.8 mg/dL (1.6-2.6); Total Protein 8.7 g/dL (6.4-8.2)
[2020-05-24 23:08] LABS: INR 1.02 (0.9-1.15); Partial Thromboplastin Time 28.1 sec (23.0-31.2)
[2020-05-25] MEDS ORDERED: ONDANSETRON HCL 4 MG/2 ML VIAL ONE (02:19)
[2020-05-25] MEDS ORDERED: ONDANSETRON HCL 4 MG/2 ML VIAL IV ONE (02:30)
[2020-05-25] MEDS ORDERED: cloNIDine HCL 0.1 MG TAB PO ONE (06:30)
[2020-05-25] MEDS ORDERED: NITROGLYCERIN 0.4 MG SL TAB SL PRN (09:45)
[2020-05-25] MEDS ORDERED: cloNIDine HCL 0.1 MG TAB PO PRN (09:45)
[2020-05-25 12:47] VITALS: BP 128/78
[2020-05-25] MEDS ORDERED: TRAZ100T3 PO (14:56)
[2020-05-25] MEDS ORDERED: BACL10TA PO (14:56)
[2020-05-25] MEDS ORDERED: LISI-646 PO (14:56)
[2020-05-25] MEDS ORDERED: TICA90TA PO (14:56)
[2020-05-25] MEDS ORDERED: CARV6.25 PO (14:56)
[2020-05-25] MEDS ORDERED: GABA100C9 PO (14:56)
[2020-05-25] MEDS ORDERED: HYDR-4296 PO (14:56)
[2020-05-25] MEDS ORDERED: MECL25CH38 PO (14:56)
[2020-05-25] MEDS ORDERED: ONDA-144 PO (14:56)
[2020-05-25] MEDS ORDERED: DIPH25CA6 PO (14:56)
[2020-05-25] MEDS ORDERED: SERT-274 PO (14:56)
[2020-05-25] MEDS ORDERED: CELE200C PO (14:56)
[2020-05-25] MEDS ORDERED: SEVE800T10 PO (14:56)
[2020-05-25] MEDS ORDERED: HYDR-3682 PO (14:56)
[2020-05-25] MEDS ORDERED: CLOP75TA41 PO (14:56)
[2020-05-25] MEDS ORDERED: FERR1TAB17 PO (14:56)
[2020-05-25] MEDS ORDERED: DICY20TA PO (14:56)
[2020-05-25] MEDS ORDERED: METO25CA PO (14:56)
[2020-05-25] MEDS ORDERED: diphenhdrAMINE HCL 25 MG CAP PO PRN (15:30)
[2020-05-25 16:53] VITALS: BP 147/90
[2020-05-25] MEDS: hydrALAZINE HCL 25 MG TAB PO SCH ×2 (17:02→21:21)
[2020-05-25] MEDS: LISINOPRIL 20 MG TAB PO SCH (17:03)
[2020-05-25] MEDS: ACETAMINOPHEN 500 MG TAB PO PRN ×2 (17:04→22:20)
[2020-05-25] MEDS: SEVELAMER 800 MG TAB PO SCH (17:43)
[2020-05-25] MEDS ORDERED: DICYCLOMINE HCL 10 MG CAP PO SCH (18:00)
[2020-05-25] MEDS ORDERED: SODIUM CHLORIDE 0.9% 250 ML IV ONE (21:15)
[2020-05-25] MEDS: CARVEDILOL 3.125 MG TAB PO SCH (21:20)
[2020-05-25] MEDS: GABAPENTIN 100 MG CAP PO SCH (21:22)
[2020-05-25] MEDS: ONDANSETRON ODT 4 MG TAB PO SCH (21:22)
[2020-05-25] MEDS: TICAGRELOR 90 MG TAB PO SCH (21:22)
[2020-05-25] MEDS: ATORVASTATIN 20 MG TAB PO SCH (21:22)
[2020-05-25 22:00] VITALS: BP 81/50
[2020-05-26] VITALS (49 sets, daily range): BP systolic 72–141; BP diastolic 35–77
[2020-05-26] MEDS: NOREPINEPHRINE 8 MG/250ML KIT 250 ML IV SCH ×2 (00:30→03:50)
[2020-05-26 04:41] LABS: Basophils # (auto) 0 10 ^3/uL (0-0.2); Basophils % (auto) 0.7 % (0.0-2.0); Eosinophils # (auto) 0.1 10 ^3/uL (0-0.8); Eosinophils % (auto) 1.8 % (0.0-7.0); Hematocrit 41.2 % (36.0-46.0); Hemoglobin 13.5 g/dL (12.2-16.2); Lymphocytes # (auto) 1.5 10 ^3/uL (0.4-5.4); Lymphocytes % (auto) 24.6 % (10.0-50.0); Mean Corpuscular Hemoglobin 31.6 pg (28.0-32.0); Mean Corpuscular Hgb Conc. 32.8 g/dL (32.0-36.0); Mean Corpuscular Volume 96.1 fL (80.0-100.0); Monocytes # (auto) 0.8 10 ^3/uL (0-1.3); Monocytes % (auto) 13.8 % (0.0-12.0); Neutrophils # (auto) 3.6 10 ^3/uL (1.6-8.6); Neutrophils % (auto) 59.1 % (37.0-80.0); Nucleated Red Blood Cells % 0.3 %; Platelet Count (auto) 251 10^3/uL (140-450); Red Blood Cells 4.28 10^6/uL (4.0-5.20); Red Cell Distribution Width 17.1 % (11.8-14.3); White Blood Cell 6.1 10^3/uL (4.4-10.8)
[2020-05-26 04:54] LABS: Albumin 3.3 g/dL (3.4-5.0); BUN/Creatinine Ratio 3.8; Calcium 8.9 mg/dL (8.5-10.1)
[2020-05-26 04:56] LABS: Bilirubin, Total 0.5 mg/dL (0.2-1.0); Total Protein 7.5 g/dL (6.4-8.2)
[2020-05-26] MEDS: hydrALAZINE HCL 25 MG TAB PO SCH ×3 (06:00→22:00)
[2020-05-26] MEDS: SEVELAMER 800 MG TAB PO SCH ×3 (08:43→17:47)
[2020-05-26] MEDS ORDERED: ASPirin 81 mg TAB PO SCH (10:00)
[2020-05-26] MEDS: LISINOPRIL 20 MG TAB PO SCH (10:00)
[2020-05-26] MEDS: CARVEDILOL 3.125 MG TAB PO SCH ×2 (10:00→22:00)
[2020-05-26] MEDS ORDERED: diphenhdrAMINE HCL 25 MG CAP PO SCH (10:00)
[2020-05-26] MEDS: TICAGRELOR 90 MG TAB PO SCH ×2 (10:21→22:00)
[2020-05-26] MEDS: SERTRALINE HCL 50 MG TAB PO SCH (10:21)
[2020-05-26] MEDS: ASPirin-EC 81 mg tab PO SCH (10:22)
[2020-05-26] MEDS: ONDANSETRON ODT 4 MG TAB PO SCH ×2 (10:35→22:00)
[2020-05-26] MEDS: CELECOXIB 100 MG CAP PO SCH (10:45)
[2020-05-26] MEDS ORDERED: SODIUM CHLORIDE 0.9% 1,000 ML IV SCH (17:15)
[2020-05-26] MEDS ORDERED: ALBUMIN 25% 100 ML IV ONE (17:15)
[2020-05-26] MEDS: OXYCODONE W/ ACETAMINOPHEN 5/325MG TABLET PO PRN (18:54)
[2020-05-26] MEDS: GABAPENTIN 100 MG CAP PO SCH (22:00)
[2020-05-26] MEDS: ATORVASTATIN 20 MG TAB PO SCH (22:00)
[2020-05-27] VITALS (53 sets, daily range): BP systolic 82–163; BP diastolic 27–81
[2020-05-27] MEDS: hydrALAZINE HCL 25 MG TAB PO SCH ×3 (06:00→21:58)
[2020-05-27] MEDS: ASPirin-EC 81 mg tab PO SCH (10:14)
[2020-05-27] MEDS: ONDANSETRON ODT 4 MG TAB PO SCH ×2 (10:14→22:00)
[2020-05-27] MEDS: SERTRALINE HCL 50 MG TAB PO SCH (10:15)
[2020-05-27] MEDS: SEVELAMER 800 MG TAB PO SCH ×3 (10:15→17:45)
[2020-05-27] MEDS: CARVEDILOL 3.125 MG TAB PO SCH ×2 (10:16→21:59)
[2020-05-27] MEDS: TICAGRELOR 90 MG TAB PO SCH ×2 (10:16→21:58)
[2020-05-27] MEDS: LISINOPRIL 20 MG TAB PO SCH (10:16)
[2020-05-27] MEDS: CELECOXIB 100 MG CAP PO SCH (10:17)
[2020-05-27] MEDS: ATORVASTATIN 20 MG TAB PO SCH (21:59)
[2020-05-27] MEDS: GABAPENTIN 100 MG CAP PO SCH (21:59)
[2020-05-27] MEDS: TRIAMCINOLONE ACET 0.1% TOPICAL CREAM 15GM TOP SCH (22:00)
[2020-05-27] MEDS: MORPHINE SULF INJ 2 MG/ML SYRINGE 1ML IV PRN (23:19)
[2020-05-28] VITALS (28 sets, daily range): BP systolic 85–136; BP diastolic 48–82
[2020-05-28] MEDS: NOREPINEPHRINE 8 MG/250ML KIT 250 ML IV SCH (00:30)
[2020-05-28 04:00] LABS: Basophils # (auto) 0 10 ^3/uL (0-0.2); Basophils % (auto) 0.6 % (0.0-2.0); Eosinophils # (auto) 0.2 10 ^3/uL (0-0.8); Eosinophils % (auto) 2.8 % (0.0-7.0); Hematocrit 43.1 % (36.0-46.0); Hemoglobin 13.9 g/dL (12.2-16.2); Lymphocytes # (auto) 1.4 10 ^3/uL (0.4-5.4); Lymphocytes % (auto) 21.3 % (10.0-50.0); Mean Corpuscular Hemoglobin 31.9 pg (28.0-32.0); Mean Corpuscular Hgb Conc. 32.3 g/dL (32.0-36.0); Mean Corpuscular Volume 98.8 fL (80.0-100.0); Monocytes # (auto) 1.1 10 ^3/uL (0-1.3); Monocytes % (auto) 17.4 % (0.0-12.0); Neutrophils # (auto) 3.7 10 ^3/uL (1.6-8.6); Neutrophils % (auto) 57.9 % (37.0-80.0); Nucleated Red Blood Cells % 0.1 %; Platelet Count (auto) 221 10^3/uL (140-450); Red Blood Cells 4.37 10^6/uL (4.0-5.20); Red Cell Distribution Width 17.4 % (11.8-14.3); White Blood Cell 6.4 10^3/uL (4.4-10.8)
[2020-05-28 04:25] LABS: Potassium 5.1 mmol/L (3.5-5.1)
[2020-05-28 04:36] LABS: Albumin 3.4 g/dL (3.4-5.0); BUN/Creatinine Ratio 4.1; Bilirubin, Total 0.5 mg/dL (0.2-1.0); Calcium 8.8 mg/dL (8.5-10.1); Magnesium 3.5 mg/dL (1.6-2.6); Total Protein 7.1 g/dL (6.4-8.2)
[2020-05-28] MEDS: hydrALAZINE HCL 25 MG TAB PO SCH ×3 (06:00→23:34)
[2020-05-28] MEDS ORDERED: SODIUM CHL 0.9% 1000 ML BAG XX ONE (07:00)
[2020-05-28] MEDS: SEVELAMER 800 MG TAB PO SCH ×4 (09:17→18:00)
[2020-05-28] MEDS: CARVEDILOL 3.125 MG TAB PO SCH ×2 (10:00→21:35)
[2020-05-28] MEDS: LISINOPRIL 20 MG TAB PO SCH (10:00)
[2020-05-28] MEDS ORDERED: ALBUMIN 25% 50 ML IV ONE (10:15)
[2020-05-28] MEDS: TRIAMCINOLONE ACET 0.1% TOPICAL CREAM 15GM TOP SCH ×2 (12:34→21:37)
[2020-05-28] MEDS: CELECOXIB 100 MG CAP PO SCH (13:07)
[2020-05-28] MEDS: ASPirin-EC 81 mg tab PO SCH (13:07)
[2020-05-28] MEDS: SERTRALINE HCL 50 MG TAB PO SCH (13:07)
[2020-05-28] MEDS: ONDANSETRON ODT 4 MG TAB PO SCH ×2 (13:07→21:37)
[2020-05-28] MEDS: TICAGRELOR 90 MG TAB PO SCH ×2 (13:07→21:34)
[2020-05-28] MEDS: OXYCODONE W/ ACETAMINOPHEN 5/325MG TABLET PO PRN (20:05)
[2020-05-28] MEDS ORDERED: MORPHINE SULF INJ 2 MG/ML SYRINGE 1ML IV PRN (21:15)
[2020-05-28] MEDS: MORPHINE SULF INJ 2 MG/ML SYRINGE 1ML IV PRN (21:25)
[2020-05-28] MEDS: ATORVASTATIN 20 MG TAB PO SCH (21:35)
[2020-05-28] MEDS: GABAPENTIN 100 MG CAP PO SCH (21:36)
[2020-05-29] VITALS (22 sets, daily range): BP systolic 86–130; BP diastolic 48–81
[2020-05-29 04:19] LABS: Basophils # (auto) 0 10 ^3/uL (0-0.2); Basophils % (auto) 0.3 % (0.0-2.0); Eosinophils # (auto) 0.2 10 ^3/uL (0-0.8); Eosinophils % (auto) 3.3 % (0.0-7.0); Hematocrit 36.9 % (36.0-46.0); Hemoglobin 12.3 g/dL (12.2-16.2); Lymphocytes # (auto) 0.8 10 ^3/uL (0.4-5.4); Mean Corpuscular Hemoglobin 32.2 pg (28.0-32.0); Mean Corpuscular Hgb Conc. 33.3 g/dL (32.0-36.0); Mean Corpuscular Volume 96.5 fL (80.0-100.0); Monocytes # (auto) 0.7 10 ^3/uL (0-1.3); Monocytes % (auto) 13.9 % (0.0-12.0); Neutrophils # (auto) 3.4 10 ^3/uL (1.6-8.6); Neutrophils % (auto) 66.5 % (37.0-80.0); Platelet Count (auto) 206 10^3/uL (140-450); Red Blood Cells 3.82 10^6/uL (4.0-5.20); White Blood Cell 5.2 10^3/uL (4.4-10.8)
[2020-05-29 04:41] LABS: Potassium 5.3 mmol/L (3.5-5.1)
[2020-05-29 04:46] LABS: Albumin 3.2 g/dL (3.4-5.0); BUN/Creatinine Ratio 3.6; Bilirubin, Total 0.6 mg/dL (0.2-1.0); Calcium 8.4 mg/dL (8.5-10.1); Total Protein 6.6 g/dL (6.4-8.2)
[2020-05-29] MEDS: hydrALAZINE HCL 25 MG TAB PO SCH ×3 (06:27→22:00)
[2020-05-29] MEDS ORDERED: SODIUM CHL 0.9% 1000 ML BAG XX ONE (07:00)
[2020-05-29] MEDS: SEVELAMER 800 MG TAB PO SCH ×2 (08:00→15:05)
[2020-05-29] MEDS: ONDANSETRON ODT 4 MG TAB PO SCH ×2 (10:00→22:00)
[2020-05-29] MEDS ORDERED: LORazepam 2MG/ML-1ML VIAL IV PRN (11:15)
[2020-05-29] MEDS: CARVEDILOL 3.125 MG TAB PO SCH ×2 (15:03→22:00)
[2020-05-29] MEDS: CELECOXIB 100 MG CAP PO SCH (15:04)
[2020-05-29] MEDS: LISINOPRIL 20 MG TAB PO SCH (15:04)
[2020-05-29] MEDS: TICAGRELOR 90 MG TAB PO SCH ×2 (15:04→22:12)
[2020-05-29] MEDS: TRIAMCINOLONE ACET 0.1% TOPICAL CREAM 15GM TOP SCH ×2 (15:04→22:13)
[2020-05-29] MEDS: SERTRALINE HCL 50 MG TAB PO SCH (15:04)
[2020-05-29] MEDS: ASPirin-EC 81 mg tab PO SCH (15:04)
[2020-05-29] MEDS ORDERED: EPOETIN ALFA 4,000 UNIT/ML VL SC ONE (21:00)
[2020-05-29] MEDS: ATORVASTATIN 20 MG TAB PO SCH (22:12)
[2020-05-29] MEDS: GABAPENTIN 100 MG CAP PO SCH (22:13)
[2020-05-30] VITALS (9 sets, daily range): BP systolic 98–160; BP diastolic 46–80
[2020-05-30 05:32] LABS: Albumin 3.2 g/dL (3.4-5.0); BUN/Creatinine Ratio 4.1; Basophils # (auto) 0 10 ^3/uL (0-0.2); Basophils % (auto) 0.6 % (0.0-2.0); Bilirubin, Total 0.7 mg/dL (0.2-1.0); Calcium 8.8 mg/dL (8.5-10.1); Eosinophils # (auto) 0.2 10 ^3/uL (0-0.8); Eosinophils % (auto) 2.9 % (0.0-7.0); Hematocrit 38.7 % (36.0-46.0); Hemoglobin 13.1 g/dL (12.2-16.2); Lymphocytes # (auto) 0.9 10 ^3/uL (0.4-5.4); Magnesium 3.2 mg/dL (1.6-2.6); Mean Corpuscular Hemoglobin 32.8 pg (28.0-32.0); Mean Corpuscular Hgb Conc. 33.9 g/dL (32.0-36.0); Mean Corpuscular Volume 96.9 fL (80.0-100.0); Monocytes # (auto) 0.8 10 ^3/uL (0-1.3); Monocytes % (auto) 11.7 % (0.0-12.0); Neutrophils # (auto) 4.9 10 ^3/uL (1.6-8.6); Neutrophils % (auto) 71.8 % (37.0-80.0); Nucleated Red Blood Cells % 0.1 %; Platelet Count (auto) 233 10^3/uL (140-450); Red Blood Cells 3.99 10^6/uL (4.0-5.20); Red Cell Distribution Width 16.8 % (11.8-14.3); White Blood Cell 6.9 10^3/uL (4.4-10.8)
[2020-05-30] MEDS ORDERED: InsuLIN REG 1unit/0.01ml Soln (100units/ml) ONE (05:42)
[2020-05-30] MEDS ORDERED: DEXTROSE 50% SYRINGE 50 ML IV ONE (05:43)
[2020-05-30] MEDS ORDERED: CALCIUM GLUC 4.65meq/50ml D5AE 50 ML IV ONE ×2 (05:44→05:45)
[2020-05-30] MEDS ORDERED: SODIUM ZIRCONIUM CYCL 10 GM PAK ONE (05:44)
[2020-05-30 05:45] LABS: Potassium 6.2 mmol/L (3.5-5.1)
[2020-05-30] MEDS ORDERED: DEXTROSE (50%) 50ML SYRG IV ONE (05:45)
[2020-05-30] MEDS ORDERED: InsuLIN REG 1unit/0.01ml Soln (100units/ml) IV ONE (05:45)
[2020-05-30] MEDS ORDERED: SODIUM ZIRCONIUM CYCL 10 GM PAK PO ONE (05:45)
[2020-05-30] MEDS: hydrALAZINE HCL 25 MG TAB PO SCH ×2 (06:00→14:00)
[2020-05-30] MEDS ORDERED: SODIUM CHL 0.9% 1000 ML BAG XX ONE (07:00)
[2020-05-30] MEDS: SEVELAMER 800 MG TAB PO SCH ×3 (08:00→12:00)
[2020-05-30] MEDS: ONDANSETRON ODT 4 MG TAB PO SCH (09:23)
[2020-05-30] MEDS: TICAGRELOR 90 MG TAB PO SCH (09:24)
[2020-05-30] MEDS: SERTRALINE HCL 50 MG TAB PO SCH (09:25)
[2020-05-30] MEDS: ASPirin-EC 81 mg tab PO SCH (09:25)
[2020-05-30] MEDS: CELECOXIB 100 MG CAP PO SCH (09:26)
[2020-05-30] MEDS: CARVEDILOL 3.125 MG TAB PO SCH (09:30)
[2020-05-30] MEDS: TRIAMCINOLONE ACET 0.1% TOPICAL CREAM 15GM TOP SCH (09:31)
== END 2020-05-30 16:15 | disposition home or self-care (01) | DRG 100 ==
LOC: ER 20:43 → TELE-WESTW 20:44 → ICU WEST 05-26 01:15 → TELE-WESTW 05-30 10:16
PROVIDERS: ADMIT Internal Medicine; ATTEND Internal Medicine
PROC: 5A1D70Z Performance of Urinary Filtration, Intermittent, Less than 6 Hours Per Day (ICD-10-PCS; principal; 2020-05-28)
PROC: 5A1D70Z Performance of Urinary Filtration, Intermittent, Less than 6 Hours Per Day (ICD-10-PCS; 2020-05-30)
DX: G40.209 Localization-related (focal) (partial) symptomatic epilepsy and epileptic syndromes with complex partial seizures, not intractable, without status epilepticus (principal); N18.6 End stage renal disease; I13.2 Hypertensive heart and chronic kidney disease with heart failure and with stage 5 chronic kidney disease, or end stage renal disease; D63.1 Anemia in chronic kidney disease; I25.10 Atherosclerotic heart disease of native coronary artery without angina pectoris; I95.9 Hypotension, unspecified; G62.9 Polyneuropathy, unspecified; G25.81 Restless legs syndrome; E78.5 Hyperlipidemia, unspecified; F17.200 Nicotine dependence, unspecified, uncomplicated; G89.29 Other chronic pain; F32.9 Major depressive disorder, single episode, unspecified; F41.9 Anxiety disorder, unspecified; I50.9 Heart failure, unspecified; J44.9 Chronic obstructive pulmonary disease, unspecified; Z79.82 Long term (current) use of aspirin; Z95.1 Presence of aortocoronary bypass graft; Z79.02 Long term (current) use of antithrombotics/antiplatelets; Z99.2 Dependence on renal dialysis; Z82.49 Family history of ischemic heart disease and other diseases of the circulatory system; Z83.3 Family history of diabetes mellitus; Z86.73 Personal history of transient ischemic attack (TIA), and cerebral infarction without residual deficits; Z79.899 Other long term (current) drug therapy; M54.5 Low back pain; I45.10 Unspecified right bundle-branch block
CPT/HCPCS: 36415; 70450; 70551; 71045; 74176; 80053; 83735; 84484; 85025; 85610; 85730; 87081; 90935; 93306; 95819; 97110; 97116; 97530; G0378; J0610; J1815; J2405; P9047; Q0162

== ENCOUNTER 2020-06-06 15:17 | Inpatient (IN) | payer MEDICARE, OTHER ==
[~2020-06-06] VITALS: Ht 152.4 cm; Wt 87.7 kg
[~2020-06-06 15:17] MED LIST changes: +BACL10TA PO; +CARV6.25 PO; +CELE200C PO; +CLOP75TA41 PO; +DICY20TA PO; +DIPH25CA6 PO; +FERR1TAB17 PO; +GABA100C9 PO; +HYDR-3682 PO; +HYDR-4296 PO; +LISI-646 PO; +MECL25CH38 PO; +METO25CA PO; +ONDA-144 PO; +SERT-274 PO; +SEVE800T10 PO; +TRAZ100T3 PO
[2020-06-06] MEDS ORDERED: SODIUM CHLORIDE 0.9% 500 ML IV ONE (15:45)
[2020-06-06 16:55] LABS: Basophils # (auto) 0.1 10 ^3/uL (0-0.2); Basophils % (auto) 0.7 % (0.0-2.0); Eosinophils # (auto) 0.2 10 ^3/uL (0-0.8); Hematocrit 41.9 % (36.0-46.0); Hemoglobin 13.9 g/dL (12.2-16.2); Lymphocytes # (auto) 1.8 10 ^3/uL (0.4-5.4); Lymphocytes % (auto) 23.9 % (10.0-50.0); Mean Corpuscular Volume 96.7 fL (80.0-100.0); Monocytes # (auto) 1.1 10 ^3/uL (0-1.3); Neutrophils # (auto) 4.5 10 ^3/uL (1.6-8.6); Neutrophils % (auto) 58.4 % (37.0-80.0); Platelet Count (auto) 304 10^3/uL (140-450); Red Blood Cells 4.33 10^6/uL (4.0-5.20); Red Cell Distribution Width 16.8 % (11.8-14.3); White Blood Cell 7.6 10^3/uL (4.4-10.8)
[2020-06-06 17:08] LABS: Albumin 3.5 g/dL (3.4-5.0); BUN/Creatinine Ratio 2.9; Calcium 9.9 mg/dL (8.5-10.1); Magnesium 2.9 mg/dL (1.6-2.6); Potassium 4.9 mmol/L (3.5-5.1)
[2020-06-06 17:14] LABS: Bilirubin, Total 0.7 mg/dL (0.2-1.0); Total Protein 8.3 g/dL (6.4-8.2)
[2020-06-06] MEDS ORDERED: cloNIDine HCL 0.1 MG TAB PO PRN (18:45)
[2020-06-06] MEDS ORDERED: MORPHINE SULF INJ 2 MG/ML SYRINGE 1ML IV PRN (18:45)
[2020-06-06] MEDS ORDERED: ONDANSETRON HCL 4 MG/2 ML VIAL IV PRN (18:45)
[2020-06-06] MEDS ORDERED: NITROGLYCERIN 0.4 MG SL TAB SL PRN (18:45)
--- NOTE | 2020-06-06 21:28 | NUR ---
Diet requested Paged hospitalist for diet as pt was requesting food at this time. Diet ordered.
[2020-06-06] MEDS: MORPHINE SULF INJ 2 MG/ML SYRINGE 1ML IV PRN (21:56)
--- NOTE | 2020-06-06 22:19 | NUR ---
Pt refused vitals taken at this time
--- NOTE | 2020-06-07 00:06 | NUR ---
CRITICAL LAB Report Recieved result of Troponin at 5.470. Spoke with hopsitalist, stated to continue aspirin daily and troponin to be checked every 6 hours x 3. Noted.
--- NOTE | 2020-06-07 01:21 | NUR ---
MRSA swab Spoke with lab, will send MRSA swab. Pt comfortable on bed, eyes closed. Provided extra blanket per request.
--- NOTE | 2020-06-07 01:31 | NUR ---
Placed in orders for troponin draw [id number] in the following orders as timed: 06/07/2020 x 3 0500 1100 1700
[2020-06-07] MEDS: MORPHINE SULF INJ 2 MG/ML SYRINGE 1ML IV PRN ×4 (05:16→23:10)
[2020-06-07 05:45] VITALS: BP 96/62
[2020-06-07 06:38] LABS: Basophils # (auto) 0 10 ^3/uL (0-0.2); Basophils % (auto) 0.7 % (0.0-2.0); Eosinophils # (auto) 0.2 10 ^3/uL (0-0.8); Eosinophils % (auto) 3.1 % (0.0-7.0); Hematocrit 40.1 % (36.0-46.0); Hemoglobin 13.3 g/dL (12.2-16.2); Lymphocytes # (auto) 1.8 10 ^3/uL (0.4-5.4); Lymphocytes % (auto) 27.4 % (10.0-50.0); Mean Corpuscular Hemoglobin 32.2 pg (28.0-32.0); Mean Corpuscular Hgb Conc. 33.2 g/dL (32.0-36.0); Mean Corpuscular Volume 97.1 fL (80.0-100.0); Monocytes # (auto) 0.9 10 ^3/uL (0-1.3); Monocytes % (auto) 14.1 % (0.0-12.0); Neutrophils # (auto) 3.6 10 ^3/uL (1.6-8.6); Neutrophils % (auto) 54.7 % (37.0-80.0); Nucleated Red Blood Cells % 0.2 %; Platelet Count (auto) 294 10^3/uL (140-450); Red Blood Cells 4.13 10^6/uL (4.0-5.20); Red Cell Distribution Width 17.1 % (11.8-14.3); White Blood Cell 6.5 10^3/uL (4.4-10.8)
[2020-06-07 06:45] LABS: Potassium 5.2 mmol/L (3.5-5.1)
[2020-06-07 06:56] LABS: Albumin 3.4 g/dL (3.4-5.0); BUN/Creatinine Ratio 3.2; Bilirubin, Total 0.8 mg/dL (0.2-1.0); Calcium 9.2 mg/dL (8.5-10.1); Magnesium 3.2 mg/dL (1.6-2.6); Total Protein 7.5 g/dL (6.4-8.2)
[2020-06-07 08:53] VITALS: BP 90/60
[2020-06-07] MEDS: ASPirin 81 mg TAB PO SCH (10:19)
[2020-06-07] MEDS ORDERED: IODIXANOL 320MG/ML 100ML BTL IV ONE (11:44)
[2020-06-07] MEDS ORDERED: LIDOCAINE 2%HCL (LOCAL ANESTH.) INJ 20ML MDV ONE (11:45)
[2020-06-07] MEDS ORDERED: ANGIOMAX 250 MG VIAL IV ONE (11:56)
[2020-06-07] MEDS ORDERED: MIDAZOLAM HCL 1MG/1ML-2 ML VIAL ONE (11:56)
[2020-06-07] MEDS ORDERED: SODIUM CHL 0.9% 0 ML ONE (11:56)
[2020-06-07] MEDS ORDERED: fentaNYL CITRATE 100 MCG/2 ML VL ONE ×2 (11:56→13:05)
[2020-06-07 13:03] VITALS: BP 89/62
--- NOTE | 2020-06-07 13:10 | NUR ---
Received pt. in [facility] via bed. Pt. is awake and alert, oriented to person, place and event, respirations even and unlabored, RIGHT groin soft with dressing CDI, moves all extremities spontaneously, RLE pulses to DP and PT palpable. Pt. keeps RIGHT leg straight as instructed, verbalized understanding re: procedure outcome and plan of care and is compliant. Denies discomfort, NAD noted.
--- NOTE | 2020-06-07 13:28 | NUR ---
RIGHT groin unchanged, continues to deny discomfort with NAD noted. IV to RIGHT wrist; site benign. Pt. is stable for transfer back to room. SBAR report given to GT Joiner.
--- NOTE | 2020-06-07 13:40 | NUR ---
Transferred pt. in stable condition to room 297-A via bed with assist by Kavya Lara RN, pt. endorsed to GT Joiner
[2020-06-07] MEDS ORDERED: SODIUM CHL 0.9% 1000 ML BAG XX ONE (16:00)
[2020-06-07 17:01] VITALS: BP 127/73
--- NOTE | 2020-06-07 19:52 | NUR ---
Rounds Noted patient comfortably lying on bed, alert and oriented, able to move extremities. Assessed surgical site, noted tegaderm over a gauze with little blood stain that's dried. Will note if stain will grow it's currently about 0.5 cm x 1 cm. Pain denied at this time. Breathing evenly.
[2020-06-07 20:04] VITALS: BP 121/70
[2020-06-07 23:22] VITALS: BP 129/69
[2020-06-08 06:01] VITALS: BP 121/67
[2020-06-08 06:27] LABS: Basophils # (auto) 0 10 ^3/uL (0-0.2); Basophils % (auto) 0.6 % (0.0-2.0); Eosinophils # (auto) 0.2 10 ^3/uL (0-0.8); Eosinophils % (auto) 3.6 % (0.0-7.0); Hematocrit 39.3 % (36.0-46.0); Hemoglobin 12.9 g/dL (12.2-16.2); Lymphocytes # (auto) 1.1 10 ^3/uL (0.4-5.4); Mean Corpuscular Hemoglobin 31.9 pg (28.0-32.0); Mean Corpuscular Hgb Conc. 32.9 g/dL (32.0-36.0); Monocytes # (auto) 0.8 10 ^3/uL (0-1.3); Monocytes % (auto) 12.9 % (0.0-12.0); Neutrophils # (auto) 3.9 10 ^3/uL (1.6-8.6); Neutrophils % (auto) 63.9 % (37.0-80.0); Platelet Count (auto) 281 10^3/uL (140-450); Red Blood Cells 4.05 10^6/uL (4.0-5.20); Red Cell Distribution Width 16.4 % (11.8-14.3)
[2020-06-08 06:35] LABS: Calcium 8.9 mg/dL (8.5-10.1); Potassium 4.9 mmol/L (3.5-5.1)
[2020-06-08 06:41] LABS: Albumin 3.3 g/dL (3.4-5.0); BUN/Creatinine Ratio 2.8; Bilirubin, Total 0.7 mg/dL (0.2-1.0); Magnesium 2.9 mg/dL (1.6-2.6); Total Protein 7.6 g/dL (6.4-8.2)
--- NOTE | 2020-06-08 07:01 | NUR ---
endorsed to nehemiah grewal for further nursing management
[2020-06-08 08:45] VITALS: BP 119/89
[2020-06-08] MEDS: ASPirin 81 mg TAB PO SCH (09:52)
[2020-06-08] MEDS ORDERED: CLOPIDOGREL BISULFATE 75 MG TAB PO SCH (10:00)
[2020-06-08 12:53] VITALS: BP 111/69
[2020-06-08] MEDS ORDERED: ATORVASTATIN 20 MG TAB PO SCH (22:00)
== END 2020-06-08 17:00 | disposition home or self-care (01) | DRG 280 ==
LOC: ER 15:17 → TELE 15:18 → TELE-WESTW 20:23
PROVIDERS: ADMIT Internal Medicine; ATTEND Internal Medicine
PROC: 4A023N7 Measurement of Cardiac Sampling and Pressure, Left Heart, Percutaneous Approach (ICD-10-PCS; principal; 2020-06-07)
PROC: B2151ZZ Fluoroscopy of Left Heart using Low Osmolar Contrast (ICD-10-PCS; 2020-06-07)
PROC: B2111ZZ Fluoroscopy of Multiple Coronary Arteries using Low Osmolar Contrast (ICD-10-PCS; 2020-06-07)
PROC: B2131ZZ Fluoroscopy of Multiple Coronary Artery Bypass Grafts using Low Osmolar Contrast (ICD-10-PCS; 2020-06-07)
PROC: B2181ZZ Fluoroscopy of Left Internal Mammary Bypass Graft using Low Osmolar Contrast (ICD-10-PCS; 2020-06-07)
PROC: 5A1D70Z Performance of Urinary Filtration, Intermittent, Less than 6 Hours Per Day (ICD-10-PCS; 2020-06-07)
DX: I21.4 Non-ST elevation (NSTEMI) myocardial infarction (principal); N18.6 End stage renal disease; I13.2 Hypertensive heart and chronic kidney disease with heart failure and with stage 5 chronic kidney disease, or end stage renal disease; E87.1 Hypo-osmolality and hyponatremia; N25.81 Secondary hyperparathyroidism of renal origin; Z99.2 Dependence on renal dialysis; I95.9 Hypotension, unspecified; I25.5 Ischemic cardiomyopathy; I48.91 Unspecified atrial fibrillation; F41.9 Anxiety disorder, unspecified; J45.909 Unspecified asthma, uncomplicated; F32.9 Major depressive disorder, single episode, unspecified; Z86.73 Personal history of transient ischemic attack (TIA), and cerebral infarction without residual deficits; I50.9 Heart failure, unspecified; Z95.1 Presence of aortocoronary bypass graft; Z83.3 Family history of diabetes mellitus; Z82.49 Family history of ischemic heart disease and other diseases of the circulatory system; Z79.82 Long term (current) use of aspirin; E78.5 Hyperlipidemia, unspecified; J44.9 Chronic obstructive pulmonary disease, unspecified; E87.5 Hyperkalemia; E88.09 Other disorders of plasma-protein metabolism, not elsewhere classified
CPT/HCPCS: 36415; 71045; 80053; 83735; 83880; 84484; 85025; 90935; 93005; 96360; 96361; 99152; 99153; 99291; G0378; J2250; Q9967